=== PATIENT | female | born 1985 | race Caucasian/White ===

== ENCOUNTER 2017-02-27 12:42 | Emergency (ER) | payer OTHER ==
[~2017-02-27] VITALS: Ht 165.1 cm; Wt 85.8 kg
[~2017-02-27 12:42] MED LIST: ACET-785 PO; PREN-92 PO
[2017-02-27 12:47] VITALS: Ht 165.1 cm; Wt 85.8 kg
--- OUTSIDE RECORDS SUMMARY | 2017-02-27 12:47 | XMS REPORT | Referral Summary ---
Author Author [facility] Organization [facility] Address Unknown Phone Unavailable Care Team Providers Care Petroleum Inspector Name Role Phone Daniel Ibrahim Primary Care Physician [phone] Encounter Date(s): 09/08/15 - 09/08/15 [facility] [address] [place], [place] [address] Discharge Diagnosis: Cervicogenic headache Discharge Diagnosis: Cervical spondylosis Discharge Disposition: 01-Home or Self Care Attending Physician: Sam Roth MD Admitting Physician: Sam Roth MD Vital Signs Most recent to 1 oldest [Reference Range]: Peripheral Pulse 79 bpm Rate [60-100 bpm] (09/08/15 8:30 AM) Respiratory Rate 19 br/min [14-20 br/min] (09/08/15 8:30 AM) Blood Pressure 199/78 mmHg [90-140/60-90 mmHg] *HI* (09/08/15 8:30 AM) SpO2 100 % (09/08/15 8:30 AM) Problem List Condition Effective Dates Status Health Status Informant Other Active acne(Confirmed) Acute suppurative Active otitis media without spontaneous rupture of ear drum(Confirmed) Unspecified asthma, Active with status asthmaticus(Confirme d) Hematuria, Active unspecified(Confirme d) Bronchitis, not Active specified as acute or chronic(Confirmed) Mild dysplasia of Active cervix(Confirmed) Acute cervical Active radiculopathy(Confir med) Cervical Active spondylosis(Confirme d) Cervicogenic Active headache(Confirmed) Low grade squamous Active intraepithelial lesion (LGSIL) on Papanicolaou smear of cervix(Confirmed) Chicken Resolved pox(Confirmed) DDD (degenerative Active disc disease), cervical(Confirmed) Depressive disorder, Active not elsewhere classified(Confirmed ) Esophageal Active reflux(Confirmed) Unspecified Active hypothyroidism(Confi rmed) Pneumonia, organism Active unspecified(Confirme d) Insomnia, Active unspecified(Confirme d) Migraine(Confirmed) Resolved Migraine with aura Active w/o Mention Intractable Migraine(Confirmed) Mixed Active hyperlipidemia(Confi rmed) Cervicalgia(Confirme Active d) Panic disorder Active without agoraphobia(Confirme d) Pneumonia(Confirmed) Resolved (Confirmed) 2012 Active 1 (Confirmed) 2009 Active 2 Cervical Active herniation(Confirmed ) Lumbar disc Active herniation(Confirmed ) Sinus Resolved infection(Confirmed) Tension Active headache(Confirmed) Thoracic back Active pain(Confirmed) THORACIC OR Active LUMBOSACRAL NEURITIS OR RADICULITIS, UNSPECIFIED(Confirme d) Tourette's Resolved syndrome(Confirmed)3 1NSVD 2NSVD 3Pre School Age Allergies, Adverse Reactions, Alerts Substance Reaction Severity Status Amitex LA Active penicillin Rash Active SUMAtriptan HEADACHE Active traMADol SYMPTOMS INVOLVING RESPIRATORY SYSTEM AND Active OTHER CHEST SYMPTOMS itching Medications [place] 5 mg-325 mg oral tablet 1 tabs, Oral, q6hr, as needed for pain, #40 Must last 30 days, # 40 tabs, 0 Refill(s) Start Date: 08/27/15 Status: Ordered Results No data available for this section Immunizations Vaccine Date Refusal Reason hepatitis B adult vaccine 08/16/00 hepatitis B adult vaccine 05/16/99 hepatitis B adult vaccine 06/07/98 influenza virus vaccine, live 07/18/13 tetanus-diphth toxoids (Td) adult/adol 05/16/99 Procedures Procedure Date Related Diagnosis Body Site Destruction by neurolytic agent, 09/08/15 paravertebral facet joint nerve(s), with imaging guidance (fluoroscopy or CT); cervical or thoracic, single facet joint Right C2-3 Radiofrequency 09/08/15 Right C2-3 Medial Branch Block with 07/26/15 Differential Right C5-6 Transforaminal 06/30/15 RIGHT C4-6 RADIO 04/28/15 Right C4-6 Medial Branch Block with 04/08/15 Differential Right C4-6 Medial Branch Block 04/01/15 Right C5-6 Transforaminal 01/19/15 Cervical Translaminar 12/07/14 Sinus Social History Social History Type Response Smoking Status Former smoker; Type: Cigarettes Assessment and Plan No data available for this section
--- OUTSIDE RECORDS SUMMARY | 2017-02-27 12:47 | XMS REPORT | Referral Summary ---
Author Author [facility] Organization [facility] Address Unknown Phone Unavailable Care Team Providers Care Cloth Examiner Machine Name Role Phone Daniel Ibrahim Primary Care Physician [phone] Encounter Date(s): 01/17/16 - 01/17/16 [facility] [address] [place], [place] [address] Discharge Diagnosis: Cervical radiculopathy Discharge Diagnosis: Cervicalgia Discharge Diagnosis: Lumbar radiculopathy Discharge Diagnosis: DDD (degenerative disc disease), cervical Discharge Diagnosis: Lumbar spinal stenosis Discharge Diagnosis: Lumbar disc herniation Discharge Diagnosis: Cervical spondylosis Discharge Disposition: -Home or Self Care Attending Physician: Ashli Leija PA-C Admitting Physician: Ashli Leija PA-C Referring Physician: Abimael Ibrahim MD Vital Signs Most recent to 1 oldest [Reference Range]: Blood Pressure 124/70 mmHg [90-140/60-90 mmHg] (01/17/16 9:34 AM) Problem List Condition Effective Dates Status Health Status Informant Other Active acne(Confirmed) Acute suppurative Active otitis media without spontaneous rupture of ear drum(Confirmed) Unspecified asthma, Active with status asthmaticus(Confirme d) Hematuria, Active unspecified(Confirme d) Bronchitis, not Active specified as acute or chronic(Confirmed) Mild dysplasia of Active cervix(Confirmed) Cervical Active radiculopathy(Confir med) Cervical Active spondylosis(Confirme d) Cervicogenic Active headache(Confirmed) Low grade squamous Active intraepithelial lesion (LGSIL) on Papanicolaou smear of cervix(Confirmed) Chicken Resolved pox(Confirmed) DDD (degenerative Active disc disease), cervical(Confirmed) Depressive disorder, Active not elsewhere classified(Confirmed ) Esophageal Active reflux(Confirmed) Unspecified Active hypothyroidism(Confi rmed) Pneumonia, organism Active unspecified(Confirme d) Insomnia, Active unspecified(Confirme d) Lumbar Active radiculopathy(Confir med) Migraine with aura Active w/o Mention Intractable Migraine(Confirmed) Migraine(Confirmed) Resolved Mixed Active hyperlipidemia(Confi rmed) Cervicalgia(Confirme Active d) Panic disorder Active without agoraphobia(Confirme d) Pneumonia(Confirmed) Resolved (Confirmed) 2012 Active 1 (Confirmed) 2009 Active 2 Cervical Active herniation(Confirmed ) Lumbar disc Active herniation(Confirmed ) Sinus Resolved infection(Confirmed) Lumbar spinal Active stenosis(Confirmed) Tension Active headache(Confirmed) Thoracic back Active pain(Confirmed) Tourette's Resolved syndrome(Confirmed)3 1NSVD 2NSVD 3Pre School Age Allergies, Adverse Reactions, Alerts Substance Reaction Severity Status Amitex LA Active penicillin Rash Active SUMAtriptan HEADACHE Active traMADol SYMPTOMS INVOLVING RESPIRATORY SYSTEM AND Active OTHER CHEST SYMPTOMS itching Medications [place] 5 mg-325 mg oral tablet 1 tabs, Oral, q6hr, as needed for pain, #60 Must last 30 days., # 60 tabs, 0 Refill(s) Start Date: 12/27/15 Status: Ordered Results No data available for this section Immunizations Vaccine Date Refusal Reason hepatitis B adult vaccine 08/16/00 hepatitis B adult vaccine 05/16/99 hepatitis B adult vaccine 06/07/98 influenza virus vaccine, live 07/18/13 tetanus-diphth toxoids (Td) adult/adol 05/16/99 Procedures Procedure Date Related Diagnosis Body Site Right C5-6 Transforaminal 12/22/15 Right C5-6 Transforaminal 10/27/15 Right C2-3 Radiofrequency 09/08/15 Right C2-3 Medial Branch Block with 07/26/15 Differential Right C5-6 Transforaminal 06/30/15 RIGHT C4-6 RADIO 04/28/15 Right C4-6 Medial Branch Block with 04/08/15 Differential Right C4-6 Medial Branch Block 04/01/15 Right C5-6 Transforaminal 01/19/15 Cervical Translaminar 12/07/14 Sinus Social History Social History Type Response Smoking Status Former smoker; Type: Cigarettes Assessment and Plan Extracted from: Title: Office Visit Note Author: Ashli Leija PA-C Date: 01/17/16 Assessment/Plan Cervical radiculopathy Cervical spondylosis DDD (degenerative disc disease), cervical Lumbar disc herniation Lumbar radiculopathy Lumbar spinal stenosis Neck pain Ordered: MRI Spine Cervical w/o Contrast XR Spine Cervical 2 or 3 Views I discussed the patient's plan of care with Dr. Roth. I also reviewed the patient's most recent cervical MRI, which is from May 2014.. According to this MRI the patient has posterior disc bulge with annular tearand anterior spurring at C5 6with no significant central canal or foraminal narrowing. She recently had an EMG nerve conduction study of her right upper extremity showing right C6 radiculopathy. She has had several right C5 6 transforaminal epidurals, but feels like her last several injectionswere only minimally helpful. Dr. Roth recommends sending the patient to see Dr. Irene for evaluation. She will need new cervical studies prior to this appointment including new x-rays and MRI without contrast. I also reviewed the patient's most recent lumbar MRI, which is from November 2014, which showeddisc herniation with annular tear at L4 5with minimal impression upon the thecal sac and mild to moderate bilateral foraminal narrowing. This coincides with the patient's low back pain in early radicular symptoms.She has not had any injection treatment for her lower back, as her neck was always her primary complaint. She has attended physical therapy continues with home stretching. Dr. Roth recommends proceeding with an L4 5 translaminar epidural steroid injection. The patient does understand the rationale for the procedure as well as possible complications including bleeding, infection, allergic reaction, nerve irritation or damage, and risk of spinal headache. The patient also understands other remote possible complications including paraplegia, quadriplegia, , stroke, and seizure. The patient voiced understanding and wishes to proceed. The patient requests a local anesthetic. The patient will follow-up in 2-3 months following the injection. If the patient fails to improve or worsening symptoms, they will follow-up sooner. The patient voiced understanding and agrees to the above plan. The above was in discussionwith Dr. Roth. Medications: We discussed trying some gabapentin, but the patientwould like to hold off on this for now.
--- OUTSIDE RECORDS SUMMARY | 2017-02-27 12:47 | XMS REPORT | Continuity of Care Document ---
Author Author Kass[facility] Corne[facility] Address [address] [place] [address] Phone Care Team Providers Care Software Quality Assurance Analyst Name Role Phone Abimael Ibrahim PP Unavailable Payers Payer name Insurance type Covered constitution party ID Authorization(s) Unknown Problems Condition Effective Dates (start - stop) Clinical Status Neck pain - *Symptomatic Pain in limb - *Acute Other acne - *Chronic Unspecified disorders of menstruation and other abnormal bleeding from female genital tract - *Fair Control Upper Respiratory Infection, Acute - *Acute Sinusitis, Acute - *Acute Cervicalgia - *Chronic Pain in joint involving shoulder region - *Chronic Other specified conditions influencing health stat - *Acute VARICELLA UNCOMPLICATED - HYPOTHYROIDISM NOS - MIXED HYPERLIPIDEMIA - PANIC DIS W/O AGORPHOBIA - TOURETTE'S DISORDER - TENSION HEADACHE - 311 - DEPRESSIVE DISORDER NEC - MGRN W AURA WO NTRC MGRN - AC SUPP OTITIS MEDIA NOS - 486 - PNEUMONIA, ORGANISM NOS - 490 - BRONCHITIS NOS - ASTHMA NOS - ESOPHAGEAL REFLUX - HEMATURIA NOS - MILD DYSPLASIA OF CERVIX - ACNE NEC - INSOMNIA NOS - PAP SMEAR CERVIX W LGSIL - Implanon insertion - *Routine Bronchitis, Acute - *Acute Upper Respiratory Infection, Acute - *Acute Cough - *Acute Abnormal uterine bleeding - *Symptomatic Breakthrough bleeding on Implanon - *Symptomatic General counseling and advice for contraceptive ma - *Routine Pain in joint involving shoulder region - *Acute Sinusitis, acute - *Acute care and examination of lactating mothe - *Chronic Contact dermatitis and other eczema, unspecified cause - * Chronic Asthma - *Chronic Influenza Vaccine - Other acne - *Chronic Unspecified contraceptive management - *Chronic Upper Respiratory Infection, Acute - *Acute Fever - *Acute Cough - *Acute Family History Family Member Diagnosis Age At Onset Status Father (Unknown) Alive and well (Unknown) Mother (Unknown) Alive and well (Unknown) Social History Social History Element Description Quantity Unknown Allergies, Adverse Reactions, Alerts Substance Reaction Severity Status SUMATRIPTAN Unknown SUMATRIPTAN SUCCINATE Unknown PENICILLINS Unknown Medications Medication Instructions Dosage Effective Dates (start - stop) Status TAKE 1 TAB DAILY - Active Atralin 0.05 % topical gel apply by topical route every day pea sized amount to entire face 0 - Active Duac 1.2 %(1 % base)-5 % topical gel,extended release apply by topical route 2 times every day to the affected area(s) in the morning and evening 0 2012 - Active Implanon 68 mg subdermal implant inserted into left arm on 08/21/12 and is good for 3 years from that date - Active prednisone 20 mg tablet take 1 tablet (20MG) by oral route every day 20 MG - Active Promethazine [facility]-Codeine 6.25 mg-5 mg-10 mg/5 mL syrup take 5 milliliter by oral route every 4 - 6 hours as needed, not to exceed 20 mL in 24 hours - Active Immunizations Vaccine Date Status Comments Flu (split) (3 yrs or older) completed Results Test Name Date and Time Measure Units Reference Range Abnormal Flag Comments Unknown Vital Signs Date / Time: Height Weight Pulse Rate Blood Pressure Temperature /15:43:00 65.00 in 162.00 lbs 98.1 F Procedures Procedure Date Unknown Encounters Encounter Location Date [facility] Patient Visit [facility] Patient Visit [facility] Patient Visit [facility] Advance Directives Directive Effective Date Unknown
--- OUTSIDE RECORDS SUMMARY | 2017-02-27 12:47 | XMS REPORT | Referral Summary ---
Author Author [facility] Organization [facility] Address Unknown Phone Unavailable Care Team Providers Care Pricing Clerk Name Role Phone Daniel Ibrahim Primary Care Physician [phone] Encounter [facility] Date(s): 04/28/15 - 04/28/15 [facility] [address] [place], [place] [address] Discharge Diagnosis: Cervical pain Discharge Diagnosis: Cervical spondylosis Discharge Disposition: 01-Home or Self Care Attending Physician: Sam Roth MD Admitting Physician: Sam Roth MD Referring Physician: Abimael Ibrahim MD Vital Signs Most recent to 1 oldest [Reference Range]: Peripheral Pulse 73 bpm Rate [60-100 bpm] (04/28/15 12:45 PM) Respiratory Rate 20 br/min [14-20 br/min] (04/28/15 12:45 PM) Blood Pressure 131/86 mmHg [90-140/60-90 mmHg] (04/28/15 12:45 PM) SpO2 100 % (04/28/15 12:45 PM) Problem List Condition Effective Dates Status Health [...] AND Active OTHER CHEST SYMPTOMS itching Medications [place] 5 mg-325 mg oral tablet 1 tabs, Oral, q6hr, as needed for pain, #40 Must last 30 days. MAY FILL ON 08/29., # 40 tabs, 0 Refill(s) Start Date: 09/21/15 Status: Ordered Results No data available for this section Immunizations Vaccine Date Refusal Reason hepatitis B adult vaccine 08/16/00 hepatitis B adult vaccine 05/16/99 hepatitis B adult vaccine 06/07/98 influenza virus vaccine, live 07/18/13 tetanus-diphth toxoids (Td) adult/adol 05/16/99 Procedures Procedure Date Related Diagnosis Body Site Right C5-6 Transforaminal 10/27/15 Right C2-3 Radiofrequency 09/08/15 Right C2-3 Medial Branch Block with 07/26/15 Differential Right C5-6 Transforaminal 06/30/15 Destruction by neurolytic agent, 04/28/15 paravertebral facet joint nerve(s), with imaging guidance (fluoroscopy or CT); cervical or thoracic, each additional facet joint (List separately in addition to code for primary procedure).. Destruction by neurolytic agent, 04/28/15 paravertebral facet joint nerve(s), with imaging guidance (fluoroscopy or CT); cervical or thoracic, single facet joint RIGHT C4-6 RADIO 04/28/15 Right C4-6 Medial Branch Block with 04/08/15 Differential Right C4-6 Medial Branch Block 04/01/15 Right C5-6 Transforaminal 01/19/15 Cervical Translaminar 12/07/14 Sinus Social History Social History Type Response Smoking Status Former smoker; Type: Cigarettes Assessment and Plan No data available for this section
--- OUTSIDE RECORDS SUMMARY | 2017-02-27 12:47 | XMS REPORT | Continuity of Care Document ---
Author Author Alexandria URIARTE, VALERY, Abimael W Organization [facility] Address [address] [place] [address] [place] [address] Phone Care Team Providers Care Employee Services Manager Name Role Phone Abimael Ibrahim PP Unavailable Payers Payer name Insurance type Covered libertarian ID Authorization(s) Unknown Problems Condition Effective Dates (start - stop) Clinical Status Upper Respiratory Infection, Acute - *Acute Sinusitis, Acute - *Acute Pain in limb - *Acute Other acne - *Chronic Unspecified disorders of menstruation and other abnormal bleeding from female genital tract - *Fair Control Cervicalgia - *Chronic Pain in joint involving [...] *Acute Fever - *Acute Cough - *Acute Neck pain - *Symptomatic Family History Family Member Diagnosis Age At Onset Status Father (Unknown) Alive and well (Unknown) Mother (Unknown) Alive and well (Unknown) Social History Social History Element Description Quantity Unknown Allergies, Adverse Reactions, Alerts Substance Reaction Severity Status SUMATRIPTAN Unknown SUMATRIPTAN SUCCINATE Unknown PENICILLINS Unknown Medications Medication Instructions Dosage Effective Dates (start - stop) Status prednisone 20 mg tablet take 1 tablet (20MG) by oral route every day 20 MG - Active Promethazine [facility]-Codeine 6.25 mg-5 mg-10 mg/5 mL syrup take 5 milliliter by oral route every 4 - 6 hours as needed, not to exceed 20 mL in 24 hours - Active azithromycin 250 mg tablet take 2 tablet (500MG) by oral route every day for 1 day then 1 tablet (250 mg) by oral route once daily for 4 days 500 MG - No Longer Active TAKE 1 TAB DAILY - Active Atralin [...] 3 years from that date - Active Immunizations Vaccine Date Status Comments Flu (split) (3 yrs or older) completed Results Test Name Date and Time Measure Units Reference Range Abnormal Flag Comments Unknown Vital Signs Date / Time: Height Weight Pulse Rate Blood Pressure Temperature /13:48:00 65.00 in 169.00 lbs 120/80 mm[Hg] 97.4 F Procedures Procedure Date Unknown Encounters Encounter Location Date Patient Visit [facility] Patient Visit [facility] Patient Visit [facility] E2 Derm Patient Visit [facility] Patient Visit [facility] Patient Visit [facility] Patient Visit [facility] Patient Visit [facility] Patient [facility] Patient [facility] Patient Visit [facility] Patient Visit [facility] Patient Visit [facility] Patient Visit [facility] Patient Visit [facility] Patient Visit [facility] Advance Directives Directive Effective Date Unknown
--- OUTSIDE RECORDS SUMMARY | 2017-02-27 12:47 | XMS REPORT | Referral Summary ---
Author Author [facility] Organization [facility] Address Unknown Phone Unavailable Care Team Providers Care Support Group Manager Name Role Phone Daniel Ibrahim Primary Care Physician [phone] Encounter Date(s): 07/16/15 - 07/16/15 [facility] [address] [place], [place] [address] Discharge Diagnosis: Cervicalgia Discharge Diagnosis: Cervicogenic headache Discharge Diagnosis: Cervical spondylosis Discharge Diagnosis: DDD (degenerative disc disease), cervical Discharge Disposition: 01-Home or Self Care Attending Physician: Ashli Leija PA-C Admitting Physician: Ashli Leija PA-C Vital Signs Most recent to 1 oldest [Reference Range]: Blood Pressure 100/66 mmHg [90-140/60-90 mmHg] (07/16/15 8:24 AM) Problem List Condition Effective Dates Status [...] AND Active OTHER CHEST SYMPTOMS itching Medications [place] 5 mg-325 mg oral tablet 1 tabs, [...] Visit Note Author: Ashli Leija PA-C Date: 07/16/15 Assessment/Plan Cervical spondylosis Cervicalgia Cervicogenic headache DDD (degenerative disc disease), cervical I discussed the patient's plan of care with Dr. Roth. I also reviewed the patient's most recent cervical MRI. According to this MRI the patient has disc bulging with annular tear at C5 6. She also has an area of abnormal soft tissue inflammation in the midline posterior subcutaneous soft tissue seen at the C7-T1 level, without lesion. All other levels are unremarkable. Her pain today seems to be coming from her right upper cervical facet jointsand she was complaining of occipital headaches. She has previously had a right C4 to C6 radiofrequency ablation, with relief. Dr. Roth recommends proceeding with a right C2 3 medial branch block twice in workup for radiofrequency ablation.The patient does understand the rationale for the procedure as well as possible complications including bleeding, infection, allergic reaction, nerve irritation or damage. The patient also understands other remote possible complications including paraplegia, quadriplegia, , stroke, and seizure. The patient voiced understanding and wishes to proceed. The patient requests a local anesthetic. The patient will follow-up in one week following the injection. If the patient fails to improve or worsening symptoms, they will follow-up sooner. The patient voiced understanding and agrees to the above plan. The above was in discussion with Dr. Roth.
--- OUTSIDE RECORDS SUMMARY | 2017-02-27 12:47 | XMS REPORT | Referral Summary ---
Author Author [facility] Organization [facility] Address Unknown Phone Unavailable Care Team Providers Care Rubber And Pounder Name Role Phone Daniel Ibrahim Primary Care Physician [phone] Encounter VC Date(s): 03/01/16 - 03/01/16 [facility] [address] [place], [place] [address] Discharge Diagnosis: Thoracic disc herniation Discharge Diagnosis: Thoracic radiculopathy Discharge Disposition: 01-Home or Self Care Attending Physician: Sam Roth MD Admitting Physician: Sam Roth MD Referring Physician: Abimael Ibrahim MD Vital Signs Most recent to 1 oldest [Reference Range]: Apical Heart Rate 81 bpm [60-100 bpm] (03/01/16 2:49 PM) Respiratory Rate 16 br/min [14-20 br/min] (03/01/16 2:49 PM) Blood Pressure 130/92 mmHg [90-140/60-90 mmHg] (03/01/16 2:49 PM) SpO2 100 % (03/01/16 2:49 PM) Problem List Condition Effective Dates Status [...] pox(Confirmed) DDD (degenerative Active disc disease), cervical(Confirmed) DDD (degenerative Active disc disease), lumbar(Confirmed) Depressive disorder, Active not elsewhere classified(Confirmed ) [...] herniation(Confirmed ) Lumbar disc Active herniation(Confirmed ) Thoracic disc Active herniation(Confirmed ) Sinus Resolved infection(Confirmed) Lumbar spinal Active stenosis(Confirmed) Thoracic Active stenosis(Confirmed) Tension Active headache(Confirmed) Thoracic back Active pain(Confirmed) Thoracic Active radiculopathy(Confir med) Tourette's Resolved syndrome(Confirmed)3 1NSVD 2NSVD 3Pre School Age Allergies, Adverse Reactions, Alerts Substance Reaction Severity Status Amitex LA Active penicillin Rash Active SUMAtriptan HEADACHE Active traMADol SYMPTOMS INVOLVING RESPIRATORY SYSTEM AND Active OTHER CHEST SYMPTOMS itching Medications [place] 5 mg-325 mg oral tablet 1 tabs, Oral, q6hr, as needed for pain, #60 Must last 30 days., # 60 tabs, 0 Refill(s) Start Date: 02/28/16 Status: Ordered Results No data available for this section Immunizations Vaccine Date Refusal Reason hepatitis B adult vaccine 08/16/00 hepatitis B adult vaccine 05/16/99 hepatitis B adult vaccine 06/07/98 influenza virus vaccine, live 07/18/13 tetanus-diphth toxoids (Td) adult/adol 05/16/99 Procedures Procedure Date Related Diagnosis Body Site Injection(s), of diagnostic or therapeutic 03/01/16 substance(s) (including anesthetic, antispasmodic, opioid, steroid, other solution), not including neurolytic substances, including needle or catheter placement, includes contrast for localization when performed, T 7-8 Translaminar 03/01/16 Right C5-6 Transforaminal 12/22/15 Right C5-6 Transforaminal [...]
--- OUTSIDE RECORDS SUMMARY | 2017-02-27 12:47 | XMS REPORT | Referral Summary ---
Author Author [facility] Organization [facility] Address Unknown Phone Unavailable Care Team Providers Care Dwarf Tree Grower Name Role Phone Daniel Ibrahim Primary Care Physician [phone] Encounter Date(s): 10/06/15 - 10/06/15 [facility] [address] [place], [place] [address] Discharge Diagnosis: DDD (degenerative disc disease), cervical Discharge Diagnosis: Cervical herniation Discharge Diagnosis: Cervical radiculopathy Discharge Disposition: 01-Home or Self Care Attending Physician: Ashli Leija PA-C Admitting Physician: Ashli Leija PA-C Vital Signs Most recent to 1 oldest [Reference Range]: Temperature Oral 36.5 degC [35.8-37.3 degC] (10/06/15 11:09 AM) Blood Pressure 122/74 mmHg [90-140/60-90 mmHg] (10/06/15 11:09 AM) Problem List Condition Effective Dates Status [...] AND Active OTHER CHEST SYMPTOMS itching Medications cyclobenzaprine 10 mg oral tablet 10 mg 1 tabs, Oral, TID, as needed for spasm, # 60 tabs, 0 Refill(s), Pharmacy: [facility] #[id number], 1 tabs Oral TID,PRN:as needed for spasm Start Date: 09/24/15 Status: Ordered Cymbalta 30 mg oral delayed release capsule 30 mg 1 caps, Oral, Bedtime (once a day), # 30 caps, 0 Refill(s), Pharmacy: [facility] #[id number], 1 caps Oral Bedtime (once a day) Start Date: 09/24/15 Status: Ordered [place] 5 mg-325 mg oral tablet 1 tabs, Oral, q6hr, as needed for pain, #40 Must last 30 days. MAY FILL ON 08/29., # 40 tabs, 0 Refill(s) Start Date: 09/21/15 Status: Ordered [place] 5 mg-325 mg oral tablet 1 tabs, Oral, BID, as needed for pain, Note number dispensed is increased. May fill today 09/24/15. Maren Must last 30 days., # 60 tabs, 0 Refill(s) Start Date: 09/24/15 Status: Ordered Results No data available for this section Immunizations Vaccine Date Refusal Reason hepatitis B adult vaccine 08/16/00 hepatitis B adult vaccine 05/16/99 hepatitis B adult vaccine 8/24/98 influenza virus vaccine, live 07/18/13 tetanus-diphth toxoids (Td) adult/adol 05/16/99 Procedures Procedure Date Related Diagnosis Body Site Right C2-3 Radiofrequency 09/08/15 Right C2-3 Medial [...] Visit Note Author: Ashli Leija PA-C Date: 10/06/15 Assessment/Plan Cervical herniation Cervical radiculopathy DDD (degenerative disc disease), cervical I discussed the patient's plan of care with Dr. Roth. I also reviewed the patient's most recent cervical MRI. According to this MRI the patient has disc bulging with annular tear at C5 6. She also has an area of abnormal soft tissue inflammation in the midline posterior subcutaneous soft tissue seen at the C7- T1 level, without lesion. All other levels are unremarkable. Clinically, her symptoms seemed to be coming from herdisc herniation with annular tear at C5 6with right upper extremity radiculopathy. She has previously benefited from right C5 6 transforaminal epiduralsfor several months at a time. Dr. Roth recommends proceeding with repeating her right C5 6 transforaminal epidural steroid injection. The patient does understand [...]
--- OUTSIDE RECORDS SUMMARY | 2017-02-27 12:48 | XMS REPORT | Referral Summary ---
Author Author [facility] Organization [facility] Address Unknown Phone Unavailable Care Team Providers Care Certified Massage Therapist Name Role Phone Daniel Ibrahim Primary Care Physician [phone] Encounter Date(s): 02/26/15 - 02/26/15 [facility] [address] [place], [place] [address] Discharge Diagnosis: Acute cervical radiculopathy Discharge Diagnosis: Lumbar disc herniation Discharge Diagnosis: Cervical herniation Discharge Diagnosis: THORACIC OR LUMBOSACRAL NEURITIS OR RADICULITIS, UNSPECIFIED Discharge Disposition: 01-Home or Self Care Attending Physician: Debi Ricketts APRN Admitting Physician: Debi Ricketts APRN Referring Physician: Abimael Ibrahim MD Vital Signs Most recent to 1 oldest [Reference Range]: Temperature Oral 36.7 degC [35.8-37.3 degC] (02/26/15 11:00 AM) Blood Pressure 115/65 mmHg [90-140/60-90 mmHg] (02/26/15 11:00 AM) Problem List Condition Effective Dates Status [...] Active without agoraphobia(Confirme d) Pneumonia(Confirmed) Resolved (Confirmed) 2011 Active 1 (Confirmed) 2008 Active 2 Cervical Active herniation(Confirmed ) Lumbar [...] AND Active OTHER CHEST SYMPTOMS itching Medications [place] 5 mg-325 mg oral tablet 1 tabs, Oral, q6hr, as needed for pain, #40 Must last 30 days, # 40 tabs, 0 Refill(s) Start Date: 07/26/15 Status: Ordered Results No data available for this section Immunizations Vaccine Date Refusal Reason hepatitis B adult vaccine 08/16/00 hepatitis B adult vaccine 05/16/99 hepatitis B adult vaccine 06/07/98 influenza virus vaccine, live 07/18/13 tetanus-diphth toxoids (Td) adult/adol 05/16/99 Procedures Procedure Date Related Diagnosis Body Site Right C2-3 Medial Branch Block with 07/26/15 Differential Right C5-6 Transforaminal 06/30/15 RIGHT C4-6 RADIO 04/28/15 Right C4-6 Medial Branch Block with 04/08/15 Differential Right C4-6 Medial Branch Block 04/01/15 Right C5-6 Transforaminal 01/19/15 Cervical Translaminar 12/07/14 Sinus Social History Social History Type Response Smoking Status Former smoker; Type: Cigarettes Assessment and Plan Extracted from: Title: Office Visit Note Author: Debi Ricketts APRN Date: 02/26/15 Assessment/Plan Acute cervical radiculopathy Cervical herniation Lumbar disc herniation THORACIC OR LUMBOSACRAL NEURITIS OR RADICULITIS, UNSPECIFIED This patient was evaluated by Dr. Roth. She returns today for follow-up after having a thoracic MRI. Her MRI reveals mild central disc protrusion at T5 6 and T6 7 causing mild central deformity of the thecal sac at these levels she also has a mild bulge of the disc at T8 9. On exam she has not painful over these areas. Today she reports that she is primarily having right-sided neck pain her previous right arm radicular symptoms have improved after having a right C5 6 transforaminal epidural steroid injection on January 19, 2015. She was examined by Dr. Roth andhe feels that her symptoms are mechanical in nature. She reports she has been out of her Cymbalta for 3 days and that her pain recently has worsened. Dr. Roth recommends that she call back 1 week after restarting her Cymbalta andif she is not having improvement we will proceed with 2 sets of right C4 through C6 medial branch blocks as a diagnostic test to see if the patient is a candidate for radiofrequency ablation at these levels. Discussed the risks of the procedure with the patient, Discussed the potential side effects and possible risks from the injection: localized increase in pain, infection, bleeding, allergic reaction, nerve damage involving temporary or permanent pain, numbness, weakness, paralysis or . Patient was provided literature to read about medial branch blocks and radiofrequency ablation. Patient also has low back pain over her lower lumbar spinous processes she has an L4 [address] Guerra recommends if her pain persists she may proceed with an L4 5 translaminar epidural steroid injection. History of present illness , physical exam and plan of care in agreement with Dr. Roth's findings this patient will call back to our clinic if she does not have improvement after starting her Cymbalta. Patient is in agreement to the above plan of care. Encouraged continuation of home exercise and stretching.
--- OUTSIDE RECORDS SUMMARY | 2017-02-27 12:48 | XMS REPORT | Referral Summary ---
Author Author [facility] Organization [facility] Address Unknown Phone Unavailable Care Team Providers Care Side Panel Hanger Name Role Phone Daniel Ibrahim Primary Care Physician [phone] Encounter VC Date(s): 06/15/15 - 06/15/15 [facility] [address] [place], [place] [address] Discharge Diagnosis: Cervical spondylosis Discharge Diagnosis: Acute cervical radiculopathy Discharge Diagnosis: DDD (degenerative disc disease), cervical Discharge Disposition: 01-Home or Self Care Attending Physician: Ashli Leija PA-C Admitting Physician: Ashli Leija PA-C Referring Physician: Abimael Ibrahim MD Vital Signs Most recent to 1 oldest [Reference Range]: Blood Pressure 110/76 mmHg [90-140/60-90 mmHg] (06/15/15 10:50 AM) Problem List Condition Effective Dates Status [...] Active unspecified(Confirme d) Insomnia, Active unspecified(Confirme d) Migraine with aura Active w/o Mention Intractable Migraine(Confirmed) Migraine(Confirmed) Resolved Mixed Active hyperlipidemia(Confi rmed) Cervicalgia(Confirme Active d) Panic disorder Active without agoraphobia(Confirme d) Pneumonia(Confirmed) Resolved (Confirmed) 2011 Active 1 (Confirmed) 2009 Active 2 Cervical [...] AND Active OTHER CHEST SYMPTOMS itching Medications [place] 5 mg-325 mg oral tablet 1 tabs, Oral, q6hr, as needed for pain, #60 Must last 30 days., # 60 tabs, 0 Refill(s) Start Date: 11/26/15 Status: Ordered Results No data available for [...] Visit Note Author: Ashli Leija PA-C Date: 06/15/15 Assessment/Plan Acute cervical radiculopathy Cervical spondylosis DDD (degenerative disc disease), cervical I discussed the patient's plan of care with Dr. Roth. I also reviewed the patient's most recent cervical MRI with the patient using a spinal model. According to this MRI the patient has disc bulging with annular tear at C5 6. She also hasan area of abnormal soft tissue inflammationin the midline posterior subcutaneous soft tissue seen at the C7-T1 level, without lesion. This coincides withthe patient's neck pain and right upper extremity radiculopathy. She has previously benefited from a right C5 [address] Roth recommends proceeding with repeating her [...] The patient voiced understanding and wishes to proceed.The patient requests a local anesthetic. The patient will follow-up in6 weeksfollowing the injection, at which time we will discuss any remaining neck pain and headachesand possibly pursue with a right C2 3 medial branch block in workup for radiofrequency ablation. She would also like to pursue treatment for her middle and lower back. If the patient fails to improve or worsening symptoms, they will follow-up sooner. The patient voiced understanding and agrees to the above plan. Physical exam findings, history present illness, and recommendations are performed with and in agreement with Dr. Roth's findings.
--- OUTSIDE RECORDS SUMMARY | 2017-02-27 12:48 | XMS REPORT | Referral Summary ---
Author Author [facility] Organization [facility] Address Unknown Phone Unavailable Care Team Providers Care Grab Hooker Name Role Phone Daniel Ibrahim Primary Care Physician [phone] Encounter VC Date(s): 11/05/15 - 11/05/15 [facility] [address] [place] [id number] Discharge Diagnosis: Acute upper respiratory infection Discharge Disposition: 01-Home or Self Care Attending Physician: Chery Lloyd PA-C Admitting Physician: Chery Lloyd PA-C Vital Signs Most recent to 1 oldest [Reference Range]: Temperature Tympanic 36.6 degC [36.6-38.1 degC] (11/05/15 4:16 PM) Respiratory Rate 18 br/min [14-20 br/min] (11/05/15 4:16 PM) Blood Pressure 115/68 mmHg [90-140/60-90 mmHg] (11/05/15 4:16 PM) Problem List Condition Effective Dates Status [...] Pneumonia(Confirmed) Resolved (Confirmed) 2012 Active 1 (Confirmed) 2008 Active 2 Cervical [...] AND Active OTHER CHEST SYMPTOMS itching Medications [place] 5 mg-325 mg oral tablet 1 tabs, [...] Cigarettes Assessment and Plan Extracted from: Title: Ambulatory Patient Education Author: Chery Lloyd PA-C Date : 11/05/15 ENT Upper Respiratory Infection, Adult An upper respiratory infection (URI) is also sometimes known as the common cold. The upper respiratory tract includes the nose, sinuses, throat, trachea, and bronchi. Bronchi are the airways leading to the lungs. Most people improve within 1 week, but symptoms can last up to 2 weeks. A residual cough may last even longer. CAUSES Many different viruses can infect the tissues lining the upper respiratory tract. The tissues become irritated and inflamed and often become very moist. Mucus production is also common. A cold is contagious. You can easily spread the virus to others by oral contact. This includes kissing, sharing a glass, coughing, or sneezing. Touching your mouth or nose and then touching a surface, which is then touched by another person, can also spread the virus. SYMPTOMS Symptoms typically develop 1 to 3 days after you come in contact with a cold virus. Symptoms vary from person to person. They may include: Runny nose. Sneezing. Nasal congestion. Sinus irritation. Sore throat. Loss of voice (laryngitis). Cough. Fatigue. Muscle aches. Loss of appetite. Headache. Low-grade fever. DIAGNOSIS You might diagnose your own cold based on familiar symptoms, since most people get a cold 2 to 3 times a year. Your caregiver can confirm this based on your exam. Most importantly, your caregiver can check that your symptoms are not due to another disease such as strep throat, sinusitis, pneumonia, asthma, or epiglottitis. Blood tests, throat tests, and X-rays are not necessary to diagnose a common cold, but they may sometimes be helpful in excluding other more serious diseases. Your caregiver will decide if any further tests are required. RISKS AND COMPLICATIONS You may be at risk for a more severe case of the common cold if you smoke cigarettes, have chronic heart disease (such as heart failure) or lung disease ( such as asthma), or if you have a weakened immune system. The very young and very old are also at risk for more serious infections. Bacterial sinusitis, middle ear infections, and bacterial pneumonia can complicate the common cold. The common cold can worsen asthma and chronic obstructive pulmonary disease ( COPD). Sometimes, these complications can require emergency medical care and may be life-threatening. PREVENTION The best way to protect against getting a cold is to practice good hygiene. Avoid oral or hand contact with people with cold symptoms. Wash your hands often if contact occurs. There is no clear evidence that vitamin C, vitamin E, echinacea, or exercise reduces the chance of developing a cold. However, it is always recommended to get plenty of rest and practice good nutrition. TREATMENT Treatment is directed at relieving symptoms. There is no cure. Antibiotics are not effective, because the infection is caused by a virus, not by bacteria. Treatment may include: Increased fluid intake. Sports drinks offer valuable electrolytes, sugars, and fluids. Breathing heated mist or steam (vaporizer or shower). Eating chicken soup or other clear broths, and maintaining good nutrition. Getting plenty of rest. Using gargles or lozenges for comfort. Controlling fevers with ibuprofen or acetaminophen as directed by your caregiver. Increasing usage of your inhaler if you have asthma. Zinc gel and zinc lozenges, taken in the first 24 hours of the common cold, can shorten the duration and lessen the severity of symptoms. Pain medicines may help with fever, muscle aches, and throat pain. A variety of non-prescription medicines are available to treat congestion and runny nose. Your caregiver can make recommendations and may suggest nasal or lung inhalers for other symptoms. HOME CARE INSTRUCTIONS Only take [id number] or prescription medicines for pain, discomfort, or fever as directed by your caregiver. Use a warm mist humidifier or inhale steam from a shower to increase air moisture. This may keep secretions moist and make it easier to breathe. Drink enough water and fluids to keep your urine clear or pale yellow. Rest as needed. Return to work when your temperature has returned to normal or as your caregiver advises. You may need to stay home longer to avoid infecting others. You can also use a face mask and careful hand washing to prevent spread of the virus. SEEK MEDICAL CARE IF: After the first few days, you feel you are getting worse rather than better. You need your caregiver's advice about medicines to control symptoms. You develop chills, worsening shortness of breath, or brown or red sputum. These may be signs of pneumonia. You develop yellow or brown nasal discharge or pain in the face, especially when you bend forward. These may be signs of sinusitis. You develop a fever, swollen neck glands, pain with swallowing, or white areas in the back of your throat. These may be signs of strep throat. SEEK IMMEDIATE MEDICAL CARE IF: You have a fever. You develop severe or persistent headache, ear pain, sinus pain, or chest pain. You develop wheezing, a prolonged cough, cough up blood, or have a change in your usual mucus (if you have chronic lung disease). You develop sore muscles or a stiff neck. Document Released: 03/27/2002 Document Revised: 12/23/2012 Document Reviewed: [employer] Patient Information 2015 [email or web address]. This information is not intended to replace advice given to you by your health care provider. Make sure you discuss any questions you have with your health care provider. No follow up information was provided. Extracted from: Title: Office Visit Note- URI Author: Chery Lloyd PA-C Date: 11/05 Assessment/Plan Acute upper respiratory infection D/w pt that this may be the start of sinusitis, however, should treat symptomatically first. Try Flonase nasal spray OTC and also try Mucinex-D OTC. Push fluids. May try warm salt water gargles. She may call if cough develops for cough medication. I also d/w her that I usually do not treat sinus infection with abx until sx for 7-10 days. She may call if sx continue by that time, and can try abx. Ordered: Office Visit Level 3 Est [id number]
--- OUTSIDE RECORDS SUMMARY | 2017-02-27 12:48 | XMS REPORT | Referral Summary ---
Author Author [facility] Organization [facility] Address Unknown Phone Unavailable Care Team Providers Care Doctor Naturopathic Name Role Phone Daniel Ibrahim Primary Care Physician [phone] Encounter VC Date(s): 12/20/15 - 12/20/15 [facility] [address] [place], [place] [address] Discharge Disposition: 01-Home or Self Care Attending Physician: Sam Roth MD Admitting Physician: Sam Roth MD Vital Signs No data available for this section Problem List Condition Effective Dates Status Health [...] AND Active OTHER CHEST SYMPTOMS itching Medications [place] 5 mg-325 mg oral tablet 1 tabs, [...]
--- OUTSIDE RECORDS SUMMARY | 2017-02-27 12:48 | XMS REPORT | Referral Summary ---
Author Organization Unknown Address Unknown Phone Unavailable Care Team Providers Care Occupational Health And Safety Adviser Name Role Phone Daniel Ibrahim Primary Care Physician [phone] Encounter [facility] [id number] Date(s): 01/29/15 - 01/29/15 [facility] [address] [place], [place] [address] Discharge Diagnosis: THORACIC OR LUMBOSACRAL NEURITIS OR RADICULITIS, UNSPECIFIED Discharge Diagnosis: Cervical herniation Discharge Diagnosis: Thoracic back pain Discharge Diagnosis: Acute cervical radiculopathy Discharge Disposition: Home or Self Care Attending Physician: Debi Ricketts APRN Admitting Physician: Debi Ricketts APRN Referring Physician: Abimael Ibrahim MD Vital Signs Most recent to 1 oldest [Reference Range]: Blood Pressure 125/85 mmHg [90-140/60-90 mmHg] (01/29/15 9:09 AM) Problem List Condition Effective Dates Status Health Status Informant Other Active acne(Confirmed) Acute suppurative Active otitis media without spontaneous rupture of ear drum(Confirmed) Unspecified asthma, Active with status asthmaticus(Confirme d) Hematuria, Active unspecified(Confirme d) Bronchitis, not Active specified as acute or chronic(Confirmed) Mild dysplasia of Active cervix(Confirmed) Acute cervical Active radiculopathy(Confir med) Low grade squamous Active intraepithelial lesion (LGSIL) on Papanicolaou smear of cervix(Confirmed) Chicken Resolved pox(Confirmed) Depressive disorder, Active not elsewhere classified(Confirmed ) Esophageal Active reflux(Confirmed) Unspecified Active hypothyroidism(Confi rmed) Pneumonia, organism Active unspecified(Confirme d) Insomnia, Active unspecified(Confirme d) Migraine(Confirmed) Resolved Migraine with aura Active w/o Mention Intractable Migraine(Confirmed) Mixed Active hyperlipidemia(Confi rmed) Panic disorder Active without agoraphobia(Confirme d) Pneumonia(Confirmed) [...] AND Active OTHER CHEST SYMPTOMS itching Medications Cymbalta 60 mg oral delayed release capsule 1 caps, Oral, Daily, Start this script after finishing the 30mg caps., # 30 caps , 0 Refill(s), Pharmacy: [facility] #[id number], 1 caps Oral Daily,Instr: Start this script after finishing the 30mg caps. Special Instructions: Start this script after finishing the 30mg caps. Start Date: 01/18/15 Status: Suspended ibuprofen 200 mg oral capsule 2 caps, Oral, QID, as needed for fever, # 120 caps, 0 Refill(s) Start Date: 01/29/15 Status: Ordered Lyrica 150 mg, Oral, Daily, 0 Refill(s) Start Date: 01/29/15 Status: Ordered [place] 5 mg-325 mg oral tablet 1 tabs, Oral, q6hr, as needed for pain, # 40 tabs, 0 Refill(s) Start Date: 01/29/15 Status: Ordered predniSONE 20 mg oral tablet 1 tabs, Oral, Daily, X 5 days, # 5 tabs, 0 Refill(s), Pharmacy: [facility] #[id number], 1 tabs Oral Daily,x5 days Start Date: 01/29/15 Stop Date: 02/03/15 Status: Ordered Zithromax Z-Marky 250 mg oral tablet 1 packets, Oral, Daily, as directed on package labeling, X 5 days, # 6 tabs, 0 Refill(s), Pharmacy: [facility] #[id number], 1 packets Oral Daily,x5 days, Instr:as directed on package labeling Special Instructions: as directed on package labeling Start Date: 01/29/15 Stop Date: 02/03/15 Status: Ordered Results No data available for this section Immunizations Vaccine Date Refusal Reason hepatitis B adult vaccine 08/16/00 hepatitis B adult vaccine 05/16/99 hepatitis B adult vaccine 06/07/98 influenza virus vaccine, live 07/18/13 tetanus-diphth toxoids (Td) adult/adol 05/16/99 Procedures Procedure Date Related Diagnosis Body Site Right C5-6 Transforaminal 01/19/15 Cervical Translaminar 12/07/14 Sinus Social History Social History Type Response Smoking Status Former smoker; Type: Cigarettes Assessment and Plan Extracted from: Title: Office Visit Note Author: Debi Ricketts WOOD CRAFTSMAN Date: 01/29/15 Assessment/Plan Acute cervical radiculopathy Cervical herniation Thoracic back pain THORACIC OR LUMBOSACRAL NEURITIS OR RADICULITIS, UNSPECIFIED This patient was last seen on January 19, 2015 for a right C5 6 cervical transforaminal epidurals steroid injection she reports that she's had 45 percent relief and continues to have relief of her radicular symptoms. she is back today because she is having pain in her upper thoracic region and right shoulder blade. Patient was evaluated by Dr. Roth, upon exam she is tender at the C7, T1, T2 cervical spine.he recommends proceeding with thoracic MRI and thoracic x-rays for evaluation of her thoracic pain symptoms. Additionally she is tender on palpation of her right subacromial bursa. She reports she has previously seen a shoulder surgeon in the past 1-2 years and was told that her symptoms are coming from her neck. She has been on the Cymbalta for almost two weeks and has not noticed a significant difference. She will follow-up in 2 weeksto review the results ofher new thoracic MRI and x-rays. Patient is in agreement to the above plan of care. History of present illness, physical exam and plan of care are in agreement with 'sfindings.
--- OUTSIDE RECORDS SUMMARY | 2017-02-27 12:48 | XMS REPORT | Referral Summary ---
Author Author [facility] Organization [facility] Address Unknown Phone Unavailable Care Team Providers Care Automobile Brake Bonder Name Role Phone Daniel Ibrahim Primary Care Physician [phone] Encounter [facility] Date(s): 05/08/16 - 05/08/16 [facility] [address] [place], [place] [address] Discharge Diagnosis: Lumbar disc herniation Discharge Diagnosis: Lumbar spinal stenosis Discharge Diagnosis: Lumbar radiculopathy Discharge Disposition: 01-Home or Self Care Attending Physician: Sam Roth MD Admitting Physician: Sam Roth MD Referring Physician: Abimael Ibrahim MD Vital Signs Most recent to 1 oldest [Reference Range]: Apical Heart Rate 68 bpm [60-100 bpm] (05/08/16 10:37 AM) Respiratory Rate 16 br/min [14-20 br/min] (05/08/16 10:37 AM) Blood Pressure 135/93 mmHg [90-140/60-90 mmHg] (05/08/16 10:37 AM) SpO2 100 % (05/08/16 10:37 AM) Problem List Condition Effective Dates Status [...] herniation(Confirmed ) Lumbar disc Active herniation(Confirmed ) Lumbar disc Active herniation(Confirmed [...] AND Active OTHER CHEST SYMPTOMS itching Medications [place] 5 mg-325 mg oral tablet 1 tabs, Oral, q6hr, as needed for pain, #60 Must last 30 days., # 60 tabs, 0 Refill(s) Start Date: 05/01/16 Status: Ordered Ocuflox 0.3% ophthalmic solution 2 drops, Eye-Right, TID, # 5 mL, 0 Refill(s), Pharmacy: [facility] #[id number] Start Date: 04/04/16 Stop Date: 04/09/16 Status: Ordered Results No data available for this section Immunizations Vaccine Date Refusal Reason hepatitis B adult vaccine 08/16/00 hepatitis B adult vaccine 05/16/99 hepatitis B adult vaccine 06/07/98 influenza virus vaccine, live 07/18/13 tetanus-diphth toxoids (Td) adult/adol 05/16/99 Procedures Procedure Date Related Diagnosis Body Site BILATERAL L4-5 TRANSFORAMINAL 05/08/16 Injection(s), anesthetic agent and/or 05/08/16 steroid, transforaminal epidural, with imaging guidance (fluoroscopy or CT); lumbar or sacral, single level T 7-8 Translaminar 5/18/16 Right C5-6 Transforaminal 12/22/15 Right C5-6 Transforaminal [...] Extracted from: Title: Ambulatory Patient Education Author: Jayne Clay RN Date: Procedures Epidural Steroid Injection An epidural steroid injection is given to relieve pain in your neck, back, or legs that is caused by the irritation or swelling of a nerve root. This procedure involves injecting a steroid and numbing medicine (anesthetic) into the epidural space. The epidural space is the space between the outer covering of your spinal cord and the bones that form your backbone (vertebra). LET YOUR HEALTH CARE PROVIDER KNOW ABOUT: Any allergies you have. All medicines you are taking, including vitamins, herbs, eye drops, creams, and gzee-gtj-oztturn medicines such as aspirin. Previous problems you or members of your family have had with the use of anesthetics. Any blood disorders or blood clotting disorders you have. Previous surgeries you have had. Medical conditions you have. RISKS AND COMPLICATIONS Generally, this is a safe procedure. However, as with any procedure, complications can occur. Possible complications of epidural steroid injection include: Headache. Bleeding. Infection. Allergic reaction to the medicines. Damage to your nerves. The response to this procedure depends on the underlying cause of the pain and its duration. People who have long-term (chronic) pain are less likely to benefit from epidural steroids than are those people whose pain comes on strong and suddenly. BEFORE THE PROCEDURE Ask your health care provider about changing or stopping your regular medicines. You may be advised to stop taking blood-thinning medicines a few days before the procedure. You may be given medicines to reduce anxiety. Arrange for someone to take you home after the procedure. PROCEDURE You will remain awake during the procedure. You may receive medicine to make you relaxed. You will be asked to lie on your stomach. The injection site will be cleaned. The injection site will be numbed with a medicine (local anesthetic). A needle will be injected through your skin into the epidural space. Your health care provider will use an X-ray machine to ensure that the steroid is delivered closest to the affected nerve. You may have minimal discomfort at this time. Once the needle is in the right position, the local anesthetic and the steroid will be injected into the epidural space. The needle will then be removed and a bandage will be applied to the injection site. AFTER THE PROCEDURE You may be monitored for a short time before you go home. You may feel weakness or numbness in your arm or leg, which disappears within hours. You may be allowed to eat, drink, and take your regular medicine. You may have soreness at the site of the injection. This information is not intended to replace advice given to you by your health care provider. Make sure you discuss any questions you have with your health care provider. Document Released: 01/07/2009 Document Revised: 06/03/2014 Document Reviewed: ExitCare Patient Information 2016 [employer], [facility]. No follow up information was provided.
--- OUTSIDE RECORDS SUMMARY | 2017-02-27 12:48 | XMS REPORT | Referral Summary ---
Author Author [facility] Organization [facility] Address Unknown Phone Unavailable Care Team Providers Care Technical Product Manager Name Role Phone Daniel Ibrahim Primary Care Physician [phone] Encounter Date(s): 09/21/15 - 09/21/15 [facility] [address] [place] [phone] Discharge Diagnosis: Cervicalgia Discharge Diagnosis: Fatigue Discharge Diagnosis: Acute sinusitis Discharge Diagnosis: Thyromegaly Discharge Disposition: 01-Home or Self Care Attending Physician: Chery Lloyd PA-C Admitting Physician: Chery Lloyd PA-C Vital Signs Most recent to 1 oldest [Reference Range]: Temperature Tympanic 36.5 degC [36.6-38.1 degC] *LOW* (09/21/15 1:07 PM) Peripheral Pulse 80 bpm Rate [60-100 bpm] (09/21/15 1:07 PM) Blood Pressure 114/59 mmHg [90-140/60-90 mmHg] (09/21/15 1:07 PM) Problem List Condition Effective Dates Status [...] AND Active OTHER CHEST SYMPTOMS itching Medications [place] 5 mg-325 mg oral tablet 1 tabs, Oral, q6hr, as needed for pain, #40 Must last 30 days. MAY FILL ON 08/29., # 40 tabs, 0 Refill(s) Start Date: 09/21/15 Status: Ordered Zithromax Z-Marky 250 mg oral tablet 1 packets, Oral, Daily, as directed on package labeling, X 5 days, # 6 tabs, 0 Refill(s), Pharmacy: [facility] #[id number], 1 packets Oral Daily,x5 days, Instr:as directed on package labeling Start Date: 09/21/15 Stop Date: 09/26/15 Status: Ordered Results Chemistry Most recent to 1 oldest [Reference Range]: TSH with Reflex Free 0.54 T4 [0.35-4.94] (09/21/15 1:45 PM) Immunizations Vaccine Date Refusal Reason hepatitis B adult vaccine 08/16/00 hepatitis B adult vaccine 05/16/99 hepatitis B adult vaccine 06/07/98 influenza virus vaccine, live 07/18/13 tetanus-diphth toxoids (Td) adult/adol 05/16/99 Procedures Procedure Date Related Diagnosis Body Site Collection of venous blood by venipuncture 09/21/15 Right C2-3 Radiofrequency 09/08/15 Right C2-3 Medial [...] Education Author: Chery Lloyd PA-C Date : 09/21/15 Allergy Sinusitis Sinusitis is redness, soreness, and inflammation of the paranasal sinuses. Paranasal sinuses are air pockets within the bones of your face (beneath the eyes, the middle of the forehead, or above the eyes). In healthy paranasal sinuses, mucus is able to drain out, and air is able to circulate through them by way of your nose. However, when your paranasal sinuses are inflamed, mucus and air can become trapped. This can allow bacteria and other germs to grow and cause infection. Sinusitis can develop quickly and last only a short time (acute) or continue over a long period (chronic). Sinusitis that lasts for more than 12 weeks is considered chronic. CAUSES Causes of sinusitis include: Allergies. Structural abnormalities, such as displacement of the cartilage that separates your nostrils (deviated septum), which can decrease the air flow through your nose and sinuses and affect sinus drainage. Functional abnormalities, such as when the small hairs (cilia) that line your sinuses and help remove mucus do not work properly or are not present. SIGNS AND SYMPTOMS Symptoms of acute and chronic sinusitis are the same. The primary symptoms are pain and pressure around the affected sinuses. Other symptoms include: Upper toothache. Earache. Headache. Bad breath. Decreased sense of smell and taste. A cough, which worsens when you are lying flat. Fatigue. Fever. Thick drainage from your nose, which often is green and may contain pus ( purulent). Swelling and warmth over the affected sinuses. DIAGNOSIS Your health care provider will perform a physical exam. During the exam, your health care provider may: Look in your nose for signs of abnormal growths in your nostrils (nasal polyps). Tap over the affected sinus to check for signs of infection. View the inside of your sinuses (endoscopy) using an imaging device that has a light attached (endoscope). If your health care provider suspects that you have chronic sinusitis, one or more of the following tests may be recommended: Allergy tests. Nasal culture. A sample of mucus is taken from your nose, sent to a lab, and screened for bacteria. Nasal cytology. A sample of mucus is taken from your nose and examined by your health care provider to determine if your sinusitis is related to an allergy. TREATMENT Most cases of acute sinusitis are related to a viral infection and will resolve on their own within 10 days. Sometimes medicines are prescribed to help relieve symptoms (pain medicine, decongestants, nasal steroid sprays, or saline sprays) . However, for sinusitis related to a bacterial infection, your health care provider will prescribe antibiotic medicines. These are medicines that will help kill the bacteria causing the infection. Rarely, sinusitis is caused by a fungal infection. In theses cases, your health care provider will prescribe antifungal medicine. For some cases of chronic sinusitis, surgery is needed. Generally, these are cases in which sinusitis recurs more than 3 times per year, despite other treatments. HOME CARE INSTRUCTIONS Drink plenty of water. Water helps thin the mucus so your sinuses can drain more easily. Use a humidifier. Inhale steam 3 to 4 times a day (for example, sit in the bathroom with the shower running). Apply a warm, moist washcloth to your face 3 to 4 times a day, or as directed by your health care provider. Use saline nasal sprays to help moisten and clean your sinuses. Take medicines only as directed by your health care provider. If you were prescribed either an antibiotic or antifungal medicine, finish it all even if you start to feel better. SEEK IMMEDIATE MEDICAL CARE IF: You have increasing pain or severe headaches. You have nausea, vomiting, or drowsiness. You have swelling around your face. You have vision problems. You have a stiff neck. You have difficulty breathing. MAKE SURE YOU: Understand these instructions. Will watch your condition. Will get help right away if you are not doing well or get worse. Document Released: 10/01/2006 Document Revised: 02/15/2015 Document Reviewed: ExitCare Patient Information 2015 [employer]. This information is not intended to replace advice given to you by your health care provider. Make sure you discuss any questions you have with your health care provider. Family Medicine Fatigue Fatigue is a feeling of tiredness, lack of energy, lack of motivation, or feeling tired all the time. Having enough rest, good nutrition, and reducing stress will normally reduce fatigue. Consult your caregiver if it persists. The nature of your fatigue will help your caregiver to find out its cause. The treatment is based on the cause. CAUSES There are many causes for fatigue. Most of the time, fatigue can be traced to one or more of your habits or routines. Most causes fit into one or more of three general areas. They are: Lifestyle problems Sleep disturbances. Overwork. Physical exertion. Unhealthy habits. Poor eating habits or eating disorders. Alcohol and/or drug use . Lack of proper nutrition (malnutrition). Psychological problems Stress and/or anxiety problems. Depression. Grief. Boredom. Medical Problems or Conditions Anemia. . Thyroid gland problems. Recovery from major surgery. Continuous pain. Emphysema or asthma that is not well controlled Allergic conditions. Diabetes. Infections (such as mononucleosis). Obesity. Sleep disorders, such as sleep apnea. Heart failure or other heart-related problems. Cancer. Kidney disease. Liver disease. Effects of certain medicines such as antihistamines, cough and cold remedies, prescription pain medicines, heart and blood pressure medicines, drugs used for treatment of cancer, and some antidepressants. SYMPTOMS The symptoms of fatigue include: Lack of energy. Lack of drive (motivation). Drowsiness. Feeling of indifference to the surroundings. DIAGNOSIS The details of how you feel help guide your caregiver in finding out what is causing the fatigue. You will be asked about your present and past health condition. It is important to review all medicines that you take, including prescription and non-prescription items. A thorough exam will be done. You will be questioned about your feelings, habits, and normal lifestyle. Your caregiver may suggest blood tests, urine tests, or other tests to look for common medical causes of fatigue. TREATMENT Fatigue is treated by correcting the underlying cause. For example, if you have continuous pain or depression, treating these causes will improve how you feel. Similarly, adjusting the dose of certain medicines will help in reducing fatigue. HOME CARE INSTRUCTIONS Try to get the required amount of good sleep every night. Eat a healthy and nutritious diet, and drink enough water throughout the day. Practice ways of relaxing (including yoga or meditation). Exercise regularly. Make plans to change situations that cause stress. Act on those plans so that stresses decrease over time. Keep your work and personal routine reasonable. Avoid street drugs and minimize use of alcohol. Start taking a daily multivitamin after consulting your caregiver. SEEK MEDICAL CARE IF: You have persistent tiredness, which cannot be accounted for. You have fever. You have unintentional weight loss. You have headaches. You have disturbed sleep throughout the night. You are feeling sad. You have constipation. You have dry skin. You have gained weight. You are taking any new or different medicines that you suspect are causing fatigue. You are unable to sleep at night. You develop any unusual swelling of your legs or other parts of your body. SEEK IMMEDIATE MEDICAL CARE IF: You are feeling confused. Your vision is blurred. You feel faint or pass out. You develop severe headache. You develop severe abdominal, pelvic, or back pain. You develop chest pain, shortness of breath, or an irregular or fast heartbeat. You are unable to pass a normal amount of urine. You develop abnormal bleeding such as bleeding from the rectum or you vomit blood. You have thoughts about harming yourself or committing suicide. You are worried that you might harm someone else. MAKE SURE YOU: Understand these instructions. Will watch your condition. Will get help right away if you are not doing well or get worse. Document Released: 07/28/2008 Document Revised: 12/23/2012 Document Reviewed: ExitCare Patient Information 2015 [facility]. This information is not intended to replace advice given to you by your health care provider. Make sure you discuss any questions you have with your health care provider. No follow up information was provided. Extracted from: Title: Office Visit Note Author: Chery Lloyd PA-C Date: 09/21/15 Assessment/Plan Acute sinusitis Will treat with Z-marky as she is allergic to PCN. Try Flonase nasal spray. May continue with Zyrtec. Push fluids. RTC if not improving. Ordered: Office Visit Level 4 Est 05804 Cervicalgia At thistime, I recommended she stay with pain management. Offered to send to ortho, butmost likely they willwant to just do surgery if it is indicated. She declines referral to ortho for now. I also told her that if shewants to increase her [place], she will need apptwith Dr. Ibrahim , as I will not do this for her. I did print off her usual [place] refill to fill on 09/24. Ordered: Office Visit Level 4 Est 83585 Fatigue, Fatigue See below. Has had routine labs checked in November, and glucose was 65. Glucose has been normal in the past. I don't suspect diabetes, but will check TSH. Ordered: Office Visit Level 4 Est 82713 TSH with Reflex Free T4 Thyromegaly Appears that she has a fairly significant goiter. Will check TSH first, and will most likely need an US of the thyroid as well. Ordered: Office Visit Level 4 Est [id number] Orders: azithromycin, 1 packets, Oral, Daily, as directed on package labeling , X 5 days, # 6 tabs, 0 Refill(s), Pharmacy: [facility] #[id number], 1 packets Oral Daily,x5 days,Instr:as directed on package labeling HYDROcodone-acetaminophen, 1 tabs, Oral, q6hr, as needed for pain, #40 Must last 30 days. MAY FILL ON 09/24/15., # 40 tabs, 0 Refill(s)
--- OUTSIDE RECORDS SUMMARY | 2017-02-27 12:48 | XMS REPORT | Referral Summary ---
Author Author [facility] Organization [facility] Address Unknown Phone Unavailable Care Team Providers Care Solar Energy Systems Engineer Name Role Phone Daniel Ibrahim Primary Care Physician [phone] Encounter Date(s): 11/24/16 - 11/24/16 [facility], [address] [place] [id number] Discharge Diagnosis: Acute bacterial sinusitis Discharge Diagnosis: Cough Discharge Disposition: 01-Home or Self Care Attending Physician: Chery Lloyd PA-C Admitting Physician: Chery Lloyd PA-C Vital Signs Most recent to 1 oldest [Reference Range]: Temperature Tympanic 37 degC [36.6-38.1 degC] (11/24/16 3:32 PM) Peripheral Pulse 100 bpm Rate [60-100 bpm] (11/24/16 3:32 PM) Blood Pressure 122/80 mmHg [90-140/60-90 mmHg] (11/24/16 3:32 PM) Problem List Condition Effective Dates Status [...] not elsewhere classified(Confirmed ) Esophageal Active reflux(Confirmed) Generalized anxiety Active disorder(Confirmed) Unspecified Active hypothyroidism(Confi rmed) Pneumonia, organism Active [...] herniation(Confirmed ) Thoracic disc Active herniation(Confirmed ) Thoracic disc Active herniation(Confirmed ) Sinus Resolved infection(Confirmed) Lumbar spinal Active stenosis(Confirmed) Thoracic Active stenosis(Confirmed) Tension Active headache(Confirmed) Thoracic back Active pain(Confirmed) Thoracic Active radiculopathy(Confir med) Thoracic Active radiculopathy(Confir med) Tourette's Resolved syndrome(Confirmed)3 1NSVD 2NSVD 3Pre School Age Allergies, Adverse Reactions, Alerts Substance Reaction Severity Status Amitex LA Active penicillin Rash Active SUMAtriptan HEADACHE Active traMADol SYMPTOMS INVOLVING RESPIRATORY SYSTEM AND Active OTHER CHEST SYMPTOMS itching Medications Ativan 0.5 mg oral tablet 0.5 mg 1 tabs, Oral, TID, as needed for anxiety, Must last 30 days Zoie Flanagan May fill on 10/30/16, # 30 tabs, 0 Refill(s) Start Date: 10/30/16 Status: Ordered busPIRone 7.5 mg oral tablet 7.5 mg 1 tabs, Oral, TID, (Was filled #90/0 on 07/21/16), # 90 tabs, 0 Refill(s) , Pharmacy: [facility] #[id number], 1 tabs Oral TID,Instr:(Was filled #90/0 on 07/21/16) Start Date: 08/28/16 Status: Ordered cefdinir 300 mg oral capsule 300 mg 1 caps, Oral, q12hr, X 10 days, # 20 caps, 0 Refill(s), Pharmacy: [facility] #[id number], 1 caps Oral q12hr,x10 days Start Date: 11/24/16 Stop Date: 12/04/16 Status: Ordered cyclobenzaprine 10 mg oral tablet See Instructions, as needed for spasm, PT. REPORTS HER DENTIST GAVE HER A MUSCLE RELAXER SHE CLINCHES HER JAW @ HS 10 MG @ HS, 0 Refill(s) Start Date: 11/24/16 Status: Ordered [place] 5 mg-325 mg oral tablet 1 tabs, Oral, q6hr, as needed for pain, #60 Must last 30 days. May fill 2016, # 60 tabs, 0 Refill(s) Start Date: 11/02/16 Status: Ordered ProAir RespiClick 90 mcg/inh inhalation powder 2 puffs, Inhalation, q4hr, as needed, # 1 Each, 0 Refill(s), Pharmacy: [facility] #[id number] Start Date: 10/03/16 Status: Ordered Results No data available for this section Immunizations Given and Recorded Vaccine Date Status Refusal Reason hepatitis B adult vaccine 08/16/00 Recorded hepatitis B adult vaccine 05/16/99 Recorded hepatitis B adult vaccine 06/07/98 Recorded influenza virus vaccine, inactivated 07/20/16 Given influenza virus vaccine, live 07/18/13 Given tetanus-diphth toxoids (Td) adult/adol 05/16/99 Recorded Procedures Procedure Date Related Diagnosis Body Site T7-8 Translaminar 07/10/16 BILATERAL L4-5 TRANSFORAMINAL 05/08/16 T 7-8 Translaminar 03/01/16 Right C5-6 Transforaminal [...] and Plan Extracted from: Title: Office Visit Note- URI Author: Chery Lloyd PA-C Date: 11/24 Assessment/Plan Acute bacterial sinusitis Pt is allergic to PCN, but this was noted to be a rash and when she was very young. Z-madyson didn't seem to help last time. Will try Omnicef at this time. Rest and push fluids. Call if not improving or worsening. Ordered: cefdinir, 300 mg 1 caps, Oral, q12hr, X 10 days, # 20 caps, 0 Refill(s), Pharmacy: [facility] #[id number], 1 caps Oral q12hr,x10 days Office Visit Level 3 Est 86291 Cough May continue with ProAir inhaler if needed. Ordered: Office Visit Level 3 Est 80494
--- OUTSIDE RECORDS SUMMARY | 2017-02-27 12:48 | XMS REPORT | Referral Summary ---
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 Name Role Phone Daniel Ibrahim Primary Care Physician [phone] Encounter VC Date(s): 04/01/15 - 04/01/15 [facility] [address] [place], [place] [address] Discharge Diagnosis: Cervical pain Discharge Diagnosis: Preop examination Discharge Diagnosis: Cervical spondylosis Discharge Disposition: 01-Home or Self Care Attending Physician: Sam Roth MD Admitting Physician: Sam Roth MD Referring Physician: Abimael Ibrahim MD Vital Signs Most recent to 1 oldest [Reference Range]: Peripheral Pulse 69 bpm Rate [60-100 bpm] (04/01/15 11:03 AM) Respiratory Rate 14 br/min [14-20 br/min] (04/01/15 11:03 AM) Blood Pressure 128/90 mmHg [90-140/60-90 mmHg] (04/01/15 11:03 AM) SpO2 100 % (04/01/15 11:03 AM) Problem List Condition Effective Dates Status [...] spasm, # 60 tabs, 0 Refill(s), Pharmacy: [facility] #[id number], 1 tabs Oral TID,PRN:as needed for spasm Start Date: 09/24/15 Status: Ordered Cymbalta 30 mg oral delayed release capsule 30 mg 1 caps, Oral, Bedtime (once a day), # 30 caps, 0 Refill(s), Pharmacy: [facility] #[id number], 1 caps Oral Bedtime (once a day) Start Date: 09/24/15 Status: Ordered [place] 5 mg-325 mg oral tablet 1 tabs, Oral, q6hr, as needed for pain, #40 Must last 30 days. MAY FILL ON 08/29., # 40 tabs, 0 Refill(s) Start Date: 09/21/15 Status: Ordered [place] 5 mg-325 mg oral tablet 1 tabs, [...] C4-6 Medial Branch Block with 04/08/15 Differential Injection(s), diagnostic or therapeutic 04/01/15 agent, paravertebral facet (zygapophyseal) joint (or nerves innervating that joint) with image guidance (fluoroscopy or CT), cervical or thoracic; second level (List separately in addition to code for primary proced Injection(s), diagnostic or therapeutic 04/01/15 agent, paravertebral facet (zygapophyseal) joint (or nerves innervating that joint) with image guidance (fluoroscopy or CT), cervical or thoracic; second level (List separately in addition to code for primary proced Injection(s), diagnostic or therapeutic 04/01/15 agent, paravertebral facet (zygapophyseal) joint (or nerves innervating that joint) with image guidance (fluoroscopy or CT), cervical or thoracic; second level (List separately in addition to code for primary proced Injection(s), diagnostic or therapeutic 04/01/15 agent, paravertebral facet (zygapophyseal) joint (or nerves innervating that joint) with image guidance (fluoroscopy or CT), cervical or thoracic; single level Injection(s), diagnostic or therapeutic 04/01/15 agent, paravertebral facet (zygapophyseal) joint (or nerves innervating that joint) with image guidance (fluoroscopy or CT), lumbar or sacral; second level (List separately in addition to code for primary procedure) Injection(s), diagnostic or therapeutic 04/01/15 agent, paravertebral facet (zygapophyseal) joint (or nerves innervating that joint) with image guidance (fluoroscopy or CT), lumbar or sacral; second level (List separately in addition to code for primary procedure) Right C4-6 Medial Branch Block 04/01/15 Right C5-6 Transforaminal 01/19/15 Cervical Translaminar 12/07/14 Sinus Social History Social History Type Response Smoking Status Former smoker; Type: Cigarettes Assessment and Plan No data available for this section
--- OUTSIDE RECORDS SUMMARY | 2017-02-27 12:48 | XMS REPORT | Referral Summary ---
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 Role Phone Daniel Ibrahim Primary Care Physician [phone] Encounter VC Date(s): 06/01/15 - 06/01/15 [facility] [address] [place] [id number]- Discharge Disposition: 01-Home or Self Care Attending Physician: Abimael Ibrahim MD Admitting Physician: Abimael Ibrahim MD Vital Signs Most recent to 1 oldest [Reference Range]: Peripheral Pulse 72 bpm Rate [60-100 bpm] (06/01/15 11:10 AM) Blood Pressure 120/70 mmHg [90-140/60-90 mmHg] (06/01/15 11:10 AM) Problem List Condition Effective Dates Status [...] AND Active OTHER CHEST SYMPTOMS itching Medications [place] 5 mg-325 mg oral tablet 1 tabs, [...] Extracted from: Title: Ambulatory Patient Education Author: Abimael Ibrahim MD Date: Family Medicine Headaches, Frequently Asked Questions MIGRAINE HEADACHES Q: What is migraine? What causes it? How can I treat it? A: Generally, migraine headaches begin as a dull ache. Then they develop into a constant, throbbing, and pulsating pain. You may experience pain at the temples. You may experience pain at the front or back of one or both sides of the head. The pain is usually accompanied by a combination of: Nausea. Vomiting. Sensitivity to light and noise. Some people (about 15%) experience an aura (see below) before an attack. The cause of migraine is believed to be chemical reactions in the brain. Treatment for migraine may include mkic-eqn-afqjcmr or prescription medications. It may also include self-help techniques. These include relaxation training and biofeedback. Q: What is an aura? A: About 15% of people with migraine get an "aura". This is a sign of neurological symptoms that occur before a migraine headache. You may see wavy or jagged lines, dots, or flashing lights. You might experience tunnel vision or blind spots in one or both eyes. The aura can include visual or auditory hallucinations (something imagined). It may include disruptions in smell (such as strange odors), taste or touch. Other symptoms include: Numbness. A "pins and needles" sensation. Difficulty in recalling or speaking the correct word. These neurological events may last as long as 60 minutes. These symptoms will fade as the headache begins. Q: What is a trigger? A: Certain physical or environmental factors can lead to or "trigger" a migraine. These include: Foods. Hormonal changes. Weather. Stress. It is important to remember that triggers are different for everyone. To help prevent migraine attacks, you need to figure out which triggers affect you. Keep a headache diary. This is a good way to track triggers. The diary will help you talk to your healthcare professional about your condition. Q: Does weather affect migraines? A: Bright sunshine, hot, humid conditions, and drastic changes in barometric pressure may lead to, or "trigger," a migraine attack in some people. But studies have shown that weather does not act as a trigger for everyone with migraines. Q: What is the link between migraine and hormones? A: Hormones start and regulate many of your body's functions. Hormones keep your body in balance within a constantly changing environment. The levels of hormones in your body are unbalanced at times. Examples are during menstruation , , or menopause. That can lead to a migraine attack. In fact, about three quarters of all women with migraine report that their attacks are related to the menstrual cycle. Q: Is there an increased risk of stroke for migraine sufferers? A: The likelihood of a migraine attack causing a stroke is very remote. That is not to say that migraine sufferers cannot have a stroke associated with their migraines. In persons under age 40, the most common associated factor for stroke is migraine headache. But over the course of a person's normal life span , the occurrence of migraine headache may actually be associated with a reduced risk of dying from cerebrovascular disease due to stroke. Q: What are acute medications for migraine? A: Acute medications are used to treat the pain of the headache after it has started. Examples rzbb-ozr-vrqnedb medications, NSAIDs, ergots, and triptans. Q: What are the triptans? A: Triptans are the newest class of abortive medications. They are specifically targeted to treat migraine. Triptans are vasoconstrictors. They moderate some chemical reactions in the brain. The triptans work on receptors in your brain. Triptans help to restore the balance of a neurotransmitter called serotonin. Fluctuations in levels of serotonin are thought to be a main cause of migraine. Q: Are hqie-lct-dkoqsiu medications for migraine effective? A: Dngt-rui-gtwxxsv, or "OTC," medications may be effective in relieving mild to moderate pain and associated symptoms of migraine. But you should see your caregiver before beginning any treatment regimen for migraine. Q: What are preventive medications for migraine? A: Preventive medications for migraine are sometimes referred to as "prophylactic" treatments. They are used to reduce the frequency, severity, and length of migraine attacks. Examples of preventive medications include antiepileptic medications, antidepressants, beta-blockers, calcium channel blockers, and NSAIDs (nonsteroidal anti-inflammatory drugs). Q: Why are anticonvulsants used to treat migraine? A: During the past few years, there has been an increased interest in antiepileptic drugs for the prevention of migraine. They are sometimes referred to as "anticonvulsants". Both epilepsy and migraine may be caused by similar reactions in the brain. Q: Why are antidepressants used to treat migraine? A: Antidepressants are typically used to treat people with depression. They may reduce migraine frequency by regulating chemical levels, such as serotonin, in the brain. Q: What alternative therapies are used to treat migraine? A: The term "alternative therapies" is often used to describe treatments considered outside the scope of conventional Western medicine. Examples of alternative therapy include acupuncture, acupressure, and yoga. Another common alternative treatment is herbal therapy. Some herbs are believed to relieve headache pain. Always discuss alternative therapies with your caregiver before proceeding. Some herbal products contain arsenic and other toxins. TENSION HEADACHES Q: What is a tension-type headache? What causes it? How can I treat it? A: Tension-type headaches occur randomly. They are often the result of temporary stress, anxiety, fatigue, or anger. Symptoms include soreness in your temples, a tightening band-like sensation around your head (a "vice-like" ache) . Symptoms can also include a pulling feeling, pressure sensations, and casey head and neck muscles. The headache begins in your forehead, temples , or the back of your head and neck. Treatment for tension-type headache may include udel-hxg-egbaquf or prescription medications. Treatment may also include self-help techniques such as relaxation training and biofeedback. CLUSTER HEADACHES Q: What is a cluster headache? What causes it? How can I treat it? A: Cluster headache gets its name because the attacks come in groups. The pain arrives with little, if any, warning. It is usually on one side of the head. A tearing or bloodshot eye and a runny nose on the same side of the headache may also accompany the pain. Cluster headaches are believed to be caused by chemical reactions in the brain. They have been described as the most severe and intense of any headache type. Treatment for cluster headache includes prescription medication and oxygen. SINUS HEADACHES Q: What is a sinus headache? What causes it? How can I treat it? A: When a cavity in the bones of the face and skull (a sinus) becomes inflamed, the inflammation will cause localized pain. This condition is usually the result of an allergic reaction, a tumor, or an infection. If your headache is caused by a sinus blockage, such as an infection, you will probably have a fever. An x-ray will confirm a sinus blockage. Your caregiver's treatment might include antibiotics for the infection, as well as antihistamines or decongestants. REBOUND HEADACHES Q: What is a rebound headache? What causes it? How can I treat it? A: A pattern of taking acute headache medications too often can lead to a condition known as "rebound headache." A pattern of taking too much headache medication includes taking it more than 2 days per week or in excessive amounts. That means more than the label or a caregiver advises. With rebound headaches, your medications not only stop relieving pain, they actually begin to cause headaches. Doctors treat rebound headache by tapering the medication that is being overused. Sometimes your caregiver will gradually substitute a different type of treatment or medication. Stopping may be a challenge. Regularly overusing a medication increases the potential for serious side effects. Consult a caregiver if you regularly use headache medications more than 2 days per week or more than the label advises. ADDITIONAL QUESTIONS AND ANSWERS Q: What is biofeedback? A: Biofeedback is a self-help treatment. Biofeedback uses special equipment to monitor your body's involuntary physical responses. Biofeedback monitors: Breathing. Pulse. Heart rate. Temperature. Muscle tension. Brain activity. Biofeedback helps you refine and perfect your relaxation exercises. You learn to control the physical responses that are related to stress. Once the technique has been mastered, you do not need the equipment any more. Q: Are headaches hereditary? A: Four out of five (80%) of people that suffer report a family history of migraine. Scientists are not sure if this is genetic or a family predisposition. Despite the uncertainty, a child has a 50% chance of having migraine if one parent suffers. The child has a 75% chance if both parents suffer. Q: Can children get headaches? A: By the time they reach high school, most young people have experienced some type of headache. Many safe and effective approaches or medications can prevent a headache from occurring or stop it after it has begun. Q: What type of doctor should I see to diagnose and treat my headache? A: Start with your primary caregiver. Discuss his or her experience and approach to headaches. Discuss methods of classification, diagnosis, and treatment. Your caregiver may decide to recommend you to a headache specialist, depending upon your symptoms or other physical conditions. Having diabetes, allergies, etc., may require a more comprehensive and inclusive approach to your headache. The National Head[employer] Foundation will provide, upon request, a list of NHF physician members in your state. Document Released: 12/21/2004 Document Revised: 12/23/2012 Document Reviewed: ExitCare Patient Information 2015 Refund Exchange. This information is not intended to replace advice given to you by your health care provider. Make sure you discuss any questions you have with your health care provider. No follow up information was provided. Extracted from: Title: Office Visit Note Author: Abimael Ibrahim MD Date: 06/01/15 Assessment/Plan Cervical herniation This issue is stable and appropriate refills, lab, and f/ u have been discussed. [place] refilled and narcotic policy discussed. Working with Dr. Roth. 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 She is NOTto drive within 24 hours of the use of [place] due to potential sedation. Migraine This issue is stable and appropriate refills, lab, and f/u have been discussed.
--- OUTSIDE RECORDS SUMMARY | 2017-02-27 12:48 | XMS REPORT | Referral Summary ---
Author Author [facility] Organization [facility] Address Unknown Phone Unavailable Care Team Providers Care Blending Technician Name Role Phone Daniel Ibrahim Primary Care Physician [phone] Encounter VC Date(s): 07/26/15 - 07/26/15 [facility] [address] [place], [place] [address] Discharge Diagnosis: Cervicogenic headache Discharge Diagnosis: Cervical spondylosis Discharge Disposition: 01-Home or Self Care Attending Physician: Sam Roth MD Admitting Physician: Sam Roth MD Referring Physician: Abimael Ibrahim MD Vital Signs Most recent to 1 oldest [Reference Range]: Peripheral Pulse 92 bpm Rate [60-100 bpm] (07/26/15 9:12 AM) Respiratory Rate 16 br/min [14-20 br/min] (07/26/15 9:12 AM) Blood Pressure 113/79 mmHg [90-140/60-90 mmHg] (07/26/15 9:12 AM) SpO2 100 % (07/26/15 9:12 AM) Problem List Condition Effective Dates Status [...] AND Active OTHER CHEST SYMPTOMS itching Medications ibuprofen 200 mg oral capsule 2 caps, Oral, QID, as needed for fever, # 120 caps, 0 Refill(s) Start Date: 01/29/15 Status: Ordered [place] 5 mg-325 mg oral tablet 1 tabs, Oral, q6hr, as needed for pain, #40 Must last 30 days, # 40 tabs, 0 Refill(s) Start Date: 07/26/15 Status: Ordered Tylenol Cap[place] 325 mg, Oral, prn, 0 Refill(s) Start Date: 06/15/15 Status: Ordered Results No data available for this section Immunizations Vaccine Date Refusal Reason hepatitis B adult vaccine 08/16/00 hepatitis B adult vaccine 05/16/99 hepatitis B adult vaccine 06/07/98 influenza virus vaccine, live 07/18/13 tetanus-diphth toxoids (Td) adult/adol 05/16/99 Procedures Procedure Date Related Diagnosis Body Site Injection(s), diagnostic or therapeutic 07/26/15 agent, paravertebral facet (zygapophyseal) joint (or nerves innervating that joint) with image guidance (fluoroscopy or CT), cervical or thoracic; single level.. Right C2-3 Medial Branch Block with 07/26/15 [...]
--- OUTSIDE RECORDS SUMMARY | 2017-02-27 12:49 | XMS REPORT | Referral Summary ---
Author Author [facility] Organization [facility] Address Unknown Phone Unavailable Care Team Providers Care Line Supply Name Role Phone Daniel Ibrahim Primary Care Physician [phone] Encounter Date(s): 02/04/16 - 02/04/16 [facility], [address] [place] [id number] Discharge Disposition: 01-Home or Self Care Attending Physician: Abimael Ibrahim MD Admitting Physician: Abimael Ibrahim MD Vital Signs Most recent to 1 oldest [Reference Range]: Blood Pressure 110/70 mmHg [90-140/60-90 mmHg] (02/04/16 11:41 AM) Problem List Condition Effective Dates Status [...] AND Active OTHER CHEST SYMPTOMS itching Medications [place] 5 mg-325 mg oral tablet 1 tabs, Oral, q6hr, as needed for pain, #60 Must last 30 days., # 60 tabs, 0 Refill(s) Start Date: 01/28/16 Status: Ordered predniSONE 20 mg oral tablet 20 mg 1 tabs, Oral, Daily, X 5 days, # 5 tabs, 0 Refill(s), Pharmacy: [facility] #[id number], 1 tabs Oral Daily,x5 days Start Date: 02/04/16 Stop Date: 02/09/16 Status: Ordered Results No data available for [...] Patient Education Author: Abimael Ibrahim MD Date: Behavioral Health Anger Management Anger is a normal human emotion. However, anger can range from mild irritation to rage. When your anger becomes harmful to yourself or others, it is unhealthy anger. CAUSES There are many reasons for unhealthy anger. Many people learn how to express anger from observing how their family expressed anger. In troubled, chaotic, or abusive families, anger can be expressed as rage or even violence. Children can grow up never learning how healthy anger can be expressed. Factors that contribute to unhealthy anger include: Drug or alcohol abuse. Post-traumatic stress disorder. Traumatic brain injury. COMPLICATIONS People with unhealthy anger tend to overreact and retaliate against a real or imagined threat. The need to retaliate can turn into violence or verbal abuse against another person. Chronic anger can lead to health problems, such as hypertension, high blood pressure, and depression. TREATMENT Exercising, relaxing, meditating, or writing out your feelings all can be beneficial in managing moderate anger. For unhealthy anger, the following methods may be used: Cognitive-behavioral counseling (learning skills to change the thoughts that influence your mood). Relaxation training. Interpersonal counseling. Assertive communication skills. Medication. This information is not intended to replace advice given to you by your health care provider. Make sure you discuss any questions you have with your health care provider. Document Released: 07/28/2008 Document Revised: 12/23/2012 Document Reviewed: [facility] Patient Information 2015 [facility]. Family Medicine Airborne Precautions Airborne precautions are a way to protect everyone from certain germs that are in the air. If you are on airborne precautions, you have or may have germs that can be spread when you talk, sneeze, or cough. These germs stay in the air for long periods of time and over long distances. RULES FOR PATIENTS You will be placed in a room that has a special air supply and frequent air exchanges. The door to your room must stay closed. Your time out of the room should be limited to tests that you need in other areas of the hospital. You must check with your nurse before leaving your room. Wear a mask if you go to another hospital area. Cover your mouth with a tissue when you cough. Cover your nose with a tissue when you sneeze. Wash your hands often. RULES FOR VISITORS If there is an "Airborne Precautions" sign on the door: You must check with the nurse before going into the room. You should not eat or drink while in the room. You should ask the nurse about using or touching any items in the room. If allowed into the patient's room: Wash your hands with soap and water or use hand supervisor international reservations before entering the room. You will be asked to wear a mask (respirator) over your nose and mouth before entering the room. It must fit tightly. Do not take off your mask in the room. Right after you leave the room, take off your mask and throw it in the trash. Wash your hands with soap and water or use hand supervisor international reservations. This information is not intended to replace advice given to you by your health care provider. Make sure you discuss any questions you have with your health care provider. Document Released: 03/19/2009 Document Revised: 12/23/2012 Document Reviewed: [employer] Patient Information 2015 [employer]. No follow up information was provided. Extracted from: Title: Office Visit Note Author: Abimael Ibrahim MD Date: 02/04/16 Assessment/Plan Acute URI Zpack and prednisone 20mg po daily for five days was given. A work/school note was offered and deferred by the patient. Bronchitis, not specified as acute or chronic See above. Chronic back pain This issue was reviewed, appears stable, and current therapy continued except as mentioned. Appropriate lab was reviewed from the most recent appropriate entry and lab was ordered if needed in the cpoe/nursing orders, and follow up recommended generally in 90 days and no later then six months. Has norco allowance and contract. Chronic neck pain See above. Pending appt with Dr. Buchanan.Discussed cymbalta or lyrica and declined by her. She is welcome to see Pain Management. No further norco adjustments at this time. Counseling for travel Discussed at length. Zpack given to take with her. Consider vaccines/etc/confirm no malaria exposure and call the office. Migraine The patient's issue is nearly or completely resolved. There is no further issues or testing desired by them at this time. Stable on meds.
--- OUTSIDE RECORDS SUMMARY | 2017-02-27 12:49 | XMS REPORT | Referral Summary ---
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 Role Phone Daniel Ibrahim Primary Care Physician [phone] Encounter [facility] Date(s): 10/27/15 - 10/27/15 [facility] [address] [place], [place] [address] Discharge Diagnosis: Cervical radiculopathy Discharge Diagnosis: Cervical herniation Discharge Disposition: 01-Home or Self Care Attending Physician: Sam Roth MD Admitting Physician: Sam Roth MD Referring Physician: Abimael Ibrahim MD Vital Signs Most recent to 1 oldest [Reference Range]: Peripheral Pulse 80 bpm Rate [60-100 bpm] (10/27/15 8:56 AM) Respiratory Rate 19 br/min [14-20 br/min] (10/27/15 8:56 AM) Blood Pressure 113/88 mmHg [90-140/60-90 mmHg] (10/27/15 8:56 AM) SpO2 99 % (10/27/15 8:56 AM) Problem List Condition Effective Dates Status [...] AND Active OTHER CHEST SYMPTOMS itching Medications [place] 5 mg-325 mg oral tablet 1 tabs, [...] Procedure Date Related Diagnosis Body Site Injection(s), anesthetic agent and/or 10/27/15 steroid, transforaminal epidural, with imaging guidance (fluoroscopy or CT); cervical or thoracic, single level Right C5-6 Transforaminal 10/27/15 Right C2-3 Radiofrequency [...]
--- OUTSIDE RECORDS SUMMARY | 2017-02-27 12:49 | XMS REPORT | Referral Summary ---
Author Organization Unknown Address Unknown Phone Unavailable Care Team Providers Care Cylinder Press Feeder Name Role Phone Meshamedhat Daniel Primary Care Physician [phone] Encounter Date(s): 12/07/14 - 12/07/14 [facility] [address] [place], [place] [address] Discharge Diagnosis: Cervical pain Discharge Diagnosis: Cervical herniation Discharge Diagnosis: Acute cervical radiculopathy Discharge Diagnosis: PREOPERATIVE EXAMINATION, UNSPECIFIED Discharge Disposition: Home or Self Care Attending Physician: Sam Roth MD Admitting Physician: Sam Roth MD Vital Signs Most recent to 1 oldest [Reference Range]: Peripheral Pulse 55 bpm Rate [60-100 bpm] *LOW* (12/07/14 9:45 AM) Respiratory Rate 13 br/min [14-20 br/min] *LOW* (12/07/14 9:45 AM) Blood Pressure 114/69 mmHg [90-140/60-90 mmHg] (12/07/14 9:45 AM) Most recent to 1 oldest [Reference Range]: SpO2 100 % (12/07/14 9:45 AM) Problem List Condition Effective Dates Status [...] 2009 Active 2 Cervical Active herniation(Confirmed ) Sinus Resolved infection(Confirmed) Tension Active headache(Confirmed) THORACIC OR Active LUMBOSACRAL NEURITIS OR RADICULITIS, UNSPECIFIED(Confirme d) Tourette's Resolved syndrome(Confirmed)3 1NSVD 2NSVD 3Pre School Age Allergies, Adverse Reactions, Alerts Substance Reaction Severity Status Amitex LA Active penicillin Rash Active SUMAtriptan HEADACHE Active traMADol SYMPTOMS INVOLVING RESPIRATORY SYSTEM AND Active OTHER CHEST SYMPTOMS itching Medications No Known Medications Results No data available for this section Immunizations Vaccine Date Refusal Reason hepatitis B adult vaccine 08/16/00 hepatitis B adult vaccine 05/16/99 hepatitis B adult vaccine 06/07/98 influenza virus vaccine, live 07/18/13 tetanus-diphth toxoids (Td) adult/adol 05/16/99 Procedures Procedure Date Related Diagnosis Body Site Cervical Translaminar 12/07/14 Injection(s), of diagnostic or therapeutic 12/07/14 substance(s) (including anesthetic, antispasmodic, opioid, steroid, other solution), not including neurolytic substances, including needle or catheter placement, includes contrast for localization when performed, Sinus Social History Social History Type Response Smoking Status Former smoker; Type: Cigarettes Assessment and Plan No data available for this section
--- OUTSIDE RECORDS SUMMARY | 2017-02-27 12:49 | XMS REPORT | Referral Summary ---
Author Author [facility] Organization [facility] Address Unknown Phone Unavailable Care Team Providers Care Operational Trainer Name Role Phone Daniel Ibrahim Primary Care Physician [phone] Encounter VC Date(s): 06/28/16 - 06/28/16 [facility] [address] [place], [place] [address] Discharge Disposition: 01-Home or Self Care Attending Physician: Elmer Kingsley Admitting Physician: Elmer Kingsley Referring Physician: Abimael Ibrahim MD Vital Signs Most recent to 1 oldest [Reference Range]: Blood Pressure 128/84 mmHg [90-140/60-90 mmHg] (06/28/16 1:09 PM) Problem List Condition Effective Dates Status [...] tabs, Oral, TID, as needed for anxiety, Zoie Flanagan, # 30 tabs, 0 Refill (s) Start Date: 06/21/16 Status: Ordered busPIRone 7.5 mg oral tablet 7.5 mg 1 tabs, Oral, TID, # 90 tabs, 0 Refill(s), Pharmacy: [facility] # [id number], 1 tabs Oral TID Start Date: 06/21/16 Status: Ordered [place] 5 mg-325 mg oral tablet 1 tabs, Oral, q6hr, as needed for pain, #60 Must last 30 days., # 60 tabs, 0 Refill(s) Start Date: 06/01/16 Status: Ordered Ocuflox 0.3% ophthalmic solution 2 drops, Eye-Right, TID, # 5 mL, 0 Refill(s), Pharmacy: [facility] #[id number] Start Date: 04/04/16 Stop Date: 04/09/16 Status: Ordered Results No data available for this section Immunizations Vaccine Date Refusal Reason hepatitis B adult vaccine 08/16/00 hepatitis B adult vaccine 05/16/99 hepatitis B adult vaccine 06/07/98 influenza virus vaccine, live 07/18/13 tetanus-diphth toxoids (Td) adult/adol 05/16/99 Procedures Procedure Date Related Diagnosis Body Site BILATERAL L4-5 TRANSFORAMINAL 05/08/16 T 7-8 Translaminar [...]
--- OUTSIDE RECORDS SUMMARY | 2017-02-27 12:49 | XMS REPORT | Referral Summary ---
Author Author [facility] Organization [facility] Address Unknown Phone Unavailable Care Team Providers Care Tooth Inspector Name Role Phone Daniel Ibrahim Primary Care Physician [phone] Encounter Date(s): 07/20/15 - 07/20/15 [facility] [address] [place], [place] [address] Discharge Diagnosis: Cervicogenic headache Discharge Diagnosis: Cervical spondylosis Discharge Disposition: 01-Home or Self Care Attending Physician: Sam Roth MD Admitting Physician: Sam Roth MD Referring Physician: Abimael Ibrahim MD Vital Signs Most recent to 1 oldest [Reference Range]: Respiratory Rate 24 br/min [14-20 br/min] *HI* (07/20/15 1:34 PM) Blood Pressure 124/77 mmHg [90-140/60-90 mmHg] (07/20/15 1:34 PM) SpO2 99 % (07/20/15 1:34 PM) Problem List Condition Effective Dates Status [...] AND Active OTHER CHEST SYMPTOMS itching Medications [place] 5 mg-325 mg oral tablet 1 tabs, Oral, q6hr, as needed for pain, #60 Must last 30 days., # 60 tabs, 0 Refill(s) Start Date: 01/28/16 Status: Ordered Results No data available for [...] C2-3 Medial Branch Block with 07/26/15 Differential Injection(s), diagnostic or therapeutic 07/20/15 agent, paravertebral facet (zygapophyseal) joint (or nerves innervating that joint) with image guidance (fluoroscopy or CT), cervical or thoracic; single level.. Right C5-6 Transforaminal 06/30/15 RIGHT C4-6 RADIO 04/28/15 Right C4-6 Medial Branch Block with 04/08/15 Differential Right C4-6 Medial Branch Block 04/01/15 Right C5-6 Transforaminal 01/19/15 Cervical Translaminar 12/07/14 Sinus Social History Social History Type Response Smoking Status Former smoker; Type: Cigarettes Assessment and Plan No data available for this section
--- OUTSIDE RECORDS SUMMARY | 2017-02-27 12:49 | XMS REPORT | Referral Summary ---
Author Author [facility] Organization [facility] Address Unknown Phone Unavailable Care Team Providers Care Button Spindler Name Role Phone Daniel Ibrahim Primary Care Physician [phone] Encounter VC Date(s): 04/13/15 - 04/13/15 [facility] [address] [place], [place] [address] Discharge Diagnosis: THORACIC OR LUMBOSACRAL NEURITIS OR RADICULITIS, UNSPECIFIED Discharge Diagnosis: Cervical spondylosis Discharge Diagnosis: Cervical herniation Discharge Disposition: -Home or Self Care Attending Physician: Debi Ricketts APRN Admitting Physician: Debi Ricketts APRN Referring Physician: Abimael Ibrahim MD Vital Signs Most recent to 1 oldest [Reference Range]: Blood Pressure 106/64 mmHg [90-140/60-90 mmHg] (04/13/15 1:36 PM) Problem List Condition Effective Dates Status [...] spasm, # 60 tabs, 0 Refill(s), Pharmacy: [facility] #[id number], 1 tabs Oral TID,PRN:as needed for spasm Start Date: 09/24/15 Status: Ordered Cymbalta 30 mg oral delayed release capsule 30 mg 1 caps, Oral, Bedtime (once a day), # 30 caps, 0 Refill(s), Pharmacy: [facility] #[id number], 1 caps Oral Bedtime (once a day) Start Date: 09/24/15 Status: Ordered [place] 5 mg-325 mg oral tablet 1 tabs, Oral, q6hr, as needed for pain, #40 Must last 30 days. MAY FILL ON 08/29., # 40 tabs, 0 Refill(s) Start Date: 09/21/15 Status: Ordered [place] 5 mg-325 mg oral tablet 1 [...] Title: Office Visit Note Author: Debi Ricketts ACTIVITY THERAPY TEACHER Date: 04/13/15 Assessment/Plan Cervical herniation Cervical spondylosis THORACIC OR LUMBOSACRAL NEURITIS OR RADICULITIS, UNSPECIFIED I discussed the patient's plan of care with Dr. Roth. He also reviewed the patient's most recent cervical MRI. According to this MRI the patient has been C5 6 and minimal sized central posterior disc bulge with annular tear.on exam she is primarily tender over her right C4 through 6 cervical facet joints. She reports significant relief after her recent right C4 through C6 medial branch blocks twice. Dr. Roth recommends proceeding with a right C4 through C6 radiofrequency ablation to provide the patient with relief of her mechanical neck pain symptoms for approximately 6-18 months. The patient does understand the rationale for the procedure as well as possible complications including bleeding , infection, allergic reaction, nerve irritation or damage, discussed with her that she may develop symptoms of neuritis if she develops the symptoms she may call back to the clinic. The patient also understands other remote possible complications including paraplegia, quadriplegia, , stroke, and seizure. The patient voiced understanding and wishes to proceed. The patient requests a local anesthetic. The patient will follow-up in 2 months following the radiofrequency ablation. We also discussed that her right arm radicular symptoms are beginning to return. In the future may consider repeating her right C5 6 transforaminal epidural steroid injectionIf the patient fails to improve or worsening symptoms, they will follow-up sooner. The patient voiced understanding and agrees to the above plan. Physical exam findings, history present illness, and recommendations are performed with and in agreement with Dr. Roth's findings.
--- OUTSIDE RECORDS SUMMARY | 2017-02-27 12:49 | XMS REPORT | Referral Summary ---
Author Organization Unknown Address Unknown Phone Unavailable Care Team Providers Care Polysomnography Technologist Name Role Phone Daniel Ibrahim Primary Care Physician [phone] Encounter [facility] [id number] Date(s): 12/04/14 - 12/04/14 [facility] [address] [place], [place] [address] Discharge Diagnosis: Cervical herniation Discharge Diagnosis: LUMBAGO Discharge Diagnosis: Acute cervical radiculopathy Discharge Diagnosis: Cervicalgia Discharge Diagnosis: THORACIC OR LUMBOSACRAL NEURITIS OR RADICULITIS, UNSPECIFIED Discharge Disposition: Home or Self Care Attending Physician: Sam Roth MD Admitting Physician: Sam Roth MD Referring Physician: Abimael Ibrahim MD Vital Signs Most recent to 1 oldest [Reference Range]: Blood Pressure 102/74 mmHg [90-140/60-90 mmHg] (12/04/14 1:54 PM) Problem List Condition Effective Dates Status [...] 2008 Active 2 Cervical Active herniation(Confirmed ) Sinus Resolved infection(Confirmed) Tension Active headache(Confirmed) THORACIC OR Active LUMBOSACRAL NEURITIS OR RADICULITIS, UNSPECIFIED(Confirme d) Tourette's Resolved syndrome(Confirmed)3 1NSVD 2NSVD 3Pre School Age Allergies, Adverse Reactions, Alerts Substance Reaction Severity Status Amitex [place] Active penicillin Rash Active SUMAtriptan HEADACHE Active traMADol SYMPTOMS INVOLVING RESPIRATORY SYSTEM AND Active OTHER CHEST SYMPTOMS itching Medications No data available for this section Results No data available for this section Immunizations Vaccine Date Refusal Reason hepatitis B adult vaccine 08/16/00 hepatitis B adult vaccine 05/16/99 hepatitis B adult vaccine 06/07/98 influenza virus vaccine, live 07/18/13 tetanus-diphth toxoids (Td) adult/adol 05/16/99 Procedures Procedure Date Related Diagnosis Body Site Sinus Social History Social History Type Response Smoking Status Former smoker; Type: Cigarettes Assessment and Plan Extracted from: Title: Office Visit Note Author: Sam Roth MD Date: 12/04/14 Assessment/Plan Acute cervical radiculopathy Cervical herniation Cervicalgia LUMBAGO Ordered: MRI Spine Lumbar w/o Contrast XR Spine Lumbosacral 2 or 3 Views THORACIC OR LUMBOSACRAL NEURITIS OR RADICULITIS, UNSPECIFIED RECOMMENDATIONS: I explained to the patient she has cervical and lumbar radiculopathy Due to the patients significant symptoms which have persisted , I would recommend acervical translaminar epidural steroid injection under fluoroscopy I explained the rationale of the procedure as well as the possible complications and the patient voiced understanding and wishes to proceed. Regarding her lumbar spine , I havewritten her for x-rays and MRI of lumbar spine and physical therapy for her lumbar spine All questions were answered. I shall see the patient back for reassessmentfollowing hercervical epidural steroid injection Referrals to Other Providers lumbar radiculopathy with back pain, cervical disc herniation cervical radiculopathy Referred by: Sam Roth MD
--- OUTSIDE RECORDS SUMMARY | 2017-02-27 12:49 | XMS REPORT | Referral Summary ---
Author Author [facility] Organization [facility] Address Unknown Phone Unavailable Care Team Providers Care Car Shifter Name Role Phone Daniel Ibrahim Primary Care Physician [phone] Encounter Date(s): 10/05/16 - 10/05/16 [facility], [address] [place] [id number] Discharge Diagnosis: Cervicogenic headache Discharge Diagnosis: Lumbar spinal stenosis Discharge Diagnosis: Cervical radiculopathy Discharge Diagnosis: DDD (degenerative disc disease), cervical Discharge Diagnosis: Migraine Discharge Diagnosis: Thoracic radiculopathy Discharge Disposition: 01-Home or Self Care Attending Physician: Abimael Ibrahim MD Admitting Physician: Abimael Ibrahim MD Vital Signs Most recent to 1 oldest [Reference Range]: Blood Pressure 130/90 mmHg [90-140/60-90 mmHg] (10/05/16 8:30 AM) Problem List Condition Effective Dates [...] 30 days Zoie Flanagan May fill on 09/27/16, # 30 tabs, 0 Refill(s) Start Date: 09/26/16 Status: Ordered busPIRone 7.5 mg oral tablet 7.5 mg 1 tabs, Oral, TID, (Was filled #90/0 on 07/21/16), # 90 tabs, 0 Refill(s) , Pharmacy: [facility] #[id number], 1 tabs Oral TID,Instr:(Was filled #90/0 on 07/21/16) Start Date: 08/28/16 Status: Ordered [place] 5 mg-325 mg oral tablet 1 tabs, Oral, q6hr, as needed for pain, #60 Must last 30 days. May fill ., # 60 tabs, 0 Refill(s) Start Date: 10/05/16 Status: Ordered predniSONE 20 mg oral tablet 40 mg 2 tabs, Oral, Daily, X 5 days, # 10 tabs, 0 Refill(s), Pharmacy: [facility] #[id number], 2 tabs Oral Daily,x5 days Start Date: 10/03/16 Stop Date: 10/08/16 Status: Ordered ProAir RespiClick 90 mcg/inh inhalation powder 2 puffs, Inhalation, q4hr, as needed, # 1 Each, 0 Refill(s), [id number] Start Date: 10/03/16 Status: Ordered Results No [...] Author: Abimael Ibrahim MD Date: Family Medicine Microdiskectomy Your spine is made up of bones called vertebrae. Oval-shaped disks filled with a thick liquid sit between the vertebrae. The disks function like cushions and keep the bones from rubbing together. However, an injury or normal aging can cause a disk to bulge out (herniated disk). The herniated disk can press on a nerve root, which is painful. The pain may be in the lower back, or it might shoot down a leg. There also may be tingling or numbness. One way to stop the pain is with a minimally invasive surgery called microdiskectomy. The part of the disk that sticks out from the spine is removed. Only a small surgical cut ( incision) is made in the back. Microdiskectomy is easier on the muscles and other tissues than traditional surgery. LET YOUR CAREGIVER KNOW ABOUT: Any allergies. The last time you had anything to eat or drink. This includes water, gum , and candy. All medicines you are taking, including herbs, eyedrops, over-the- counter medicines and creams. Blood thinners (anticoagulants), aspirin, or other drugs that could affect blood clotting. Any history of blood clots. Any history of bleeding or other blood problems. Use of steroids (by mouth or as creams). Previous problems with anesthesia. Family history of anesthetic complications. Possibility of , if this applies. Previous surgery. Smoking history. Any recent symptoms of colds or infections. Other health problems. RISKS AND COMPLICATIONS Leaking of spinal fluid. If this happens, you will need to stay in bed for a few days. Bleeding. Pain. Infection near the incision. Nerve damage. Blood clot in a leg. The clot can move to the lungs. This can be very serious. A herniated disk might come back (recur) and require additional surgery. BEFORE THE PROCEDURE A medical evaluation will be done. This may include: A physical exam. Blood tests. A test that checks heart rhythm (electrocardiography). Imaging tests such as a myelogram, chest X-ray, or MRI. Ask your caregiver about changing or stopping your regular medicines. You may need to stop using aspirin and nonsteroidal anti-inflammatory drugs (NSAIDs). This includes prescription drugs and idxn-ifk-vbzhpkg drugs. If possible, do this 10 to 14 days before the procedure or as directed. You may also need to stop taking vitamin E. If you take blood thinners, ask your caregiver when you should stop taking them. You may need a stool-softening medicine a few days before the procedure. Stop smoking 2 weeks before the procedure if you smoke. Smoking can slow down the healing process. The day before the procedure, eat only a light dinner. Do not eat or drink anything for at least 8 hours before the procedure. Ask if it is okay to take any needed medicines with a sip of water. You may talk with the person who will be in charge of the anesthetic medicine during the procedure. Arrive at least 1 to 2 hours before the procedure or as directed. PROCEDURE Small monitors will be put on your body. They are used to check your heart, blood pressure, and oxygen level. An intravenous (IV) access tube will be inserted in your vein. Medicine will be able to flow directly into your body through the IV. You might be given a medicine to help you relax (sedative). You will be given a medicine that makes you sleep (general anesthetic). Your back will be cleaned with a special solution to kill germs on the skin. Once you are asleep, the surgeon will make a small incision in the middle of your lower back. It is often just 1 to 2 inches long. Muscles in the back are not cut. They are moved to the side. Often, a small piece of bone needs to be removed. This creates a better "window" so the surgeon can see the herniated disk. The surgeon uses a microscope to check the disk and nerves near it. The part of the disk that is causing problems is removed. The area under the skin is closed with stitches. In time, these will go away on their own. The skin is closed with small stitches (sutures) or adolph. A small bandage (dressing) is put over the incision. The procedure usually takes about 1 hour. AFTER THE PROCEDURE You will stay in a recovery area until the anesthesia has worn off. Your blood pressure and pulse will be checked every so often. Some pain is normal after this surgery. You will probably be given pain medicine while in the recovery area. You may be able to go home the same day as the surgery. Once you get up and start walking, you will be able to go home. Sometimes, an overnight stay is needed. This information is not intended to replace advice given to you by your health care provider. Make sure you discuss any questions you have with your health care provider. Document Released: 09/19/2010 Document Revised: 12/23/2012 Document Reviewed: Elsevier Interactive Patient Education 2016 [employer] No follow up information was provided. Extracted from: Title: Office Visit Note Author: Abimael Ibrahim MD Date: 10/05/16 Assessment/Plan Cervical radiculopathy Ongoing. Seeing Dr. Buchanan. See above for details. IMPRESSION: Unremarkable MRI of the cervical spine. [1] Physical therapy already restarted for ongoing neck pain. Cervicogenic headache [place] refilled. DDD (degenerative disc disease), cervical Seeing Dr. Buchanan. Impression: There are mild disc protrusions at T5-6, T6-7 and T8-9 as described. The evaluation is otherwise unremarkable. [2] PROCEDURE: 1. Thoracic translaminar epidural steroid injection with fluoroscopy. 2. Utilisation of flouroscopy for needle placement. SURGEON: Sam Roth MD PREPROCEDURE PREPARATION: After being explained the risks and benefits of the procedure, the patient signed the standard informed consent form. The patient was placed in the prone position and standard ASA monitors applied. PROCEDURE DETAILS: The skin was prepped and draped in a sterile fashion and sterile technique was maintained throughout the procedure. The patient was laid prone and the thoracic T 78 processes were identified needle was advanced through this at a 50-60 degree angle to the axis of the spine and 15- 20 degree axis towards the midline into the epidural space, using loss of resistance technique. Correct needle placement was confirmed by fluoroscopy. Subsequently 2 mL of contrast was administered revealing additional epidural flow. After negative aspiration, 10 mL of solution was administered consisting of 1 mL of Triesence 40 mg/mL and 5 mL of 1% lidocaine diluted in 4ml of preservative free N saline. Subsequently the needle was removed. The patient tolerated the procedure well. POSTPROCEDURE EVALUATION: After a one hour recovery period, during which no complications were noted, and chest was clear to auscultation, the patient was discharged home. The patient has been given instructions to contact us or go to the nearest emergency room if they note any respiratory embarrassment while at home. TREATMENT PLAN: We will call the patient in 48 hours to assess the degree of pain relief and plan further interventions as needed. [3] Lumbar spinal stenosis This issue was reviewed, appears stable, and current therapy continued except as mentioned. Appropriate lab was reviewed from the most recent appropriate entry and lab was ordered if needed in the cpoe/nursing orders, and follow up recommended generally in 90 days and no later then six months. Impression: There is a small L4-L5 central posterior disc protrusion/herniation with focal annular tear. There is associated minimal impression upon the thecal sac anteriorly and mild to moderate bilateral neural foramen narrowing. [4] Migraine This issue was reviewed, appears stable, and current therapy continued except as mentioned. Appropriate lab was reviewed from the most recent appropriate entry and lab was ordered if needed in the cpoe/nursing orders, and follow up recommended generally in 90 days and no later then six months. Ongoing chronicissue. [place] refilled. Thoracic radiculopathy See above. The patient is a complex lady with an extensive medical history. Again over the years the patient has seen neurology for anxiety and migraines, has seen neurosurgery and pain management for chronic neck/back issues and has had numerous scans and epidurals with only temporary relief. She has been to physical therapy many times. She has been to psychiatry at [facility] for mental health issues related to chronic pain. She has been compliant with all medical recommendations and continues to have pain. She is currently seeing Dr. Buchanan and is pursuing surgical options for pain management. Please consider her request for additional services. Her most recent MRIs and procedures are listed in this office note above. 60 minutes were utilized in care and coordination for this patient. Greater then 50% of the time was used for counseling and/or coordination of the patients care. Copy to be sent to Dr. Buchanan.
--- OUTSIDE RECORDS SUMMARY | 2017-02-27 12:49 | XMS REPORT | Referral Summary ---
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 And Footwear Mechanic Name Role Phone Daniel Ibrahim Primary Care Physician [phone] Encounter VC Date(s): 07/20/16 - 07/20/16 [facility] [address] [place] [id number] Discharge Disposition: 01-Home or Self Care Attending Physician: Abimael Ibrahim MD Admitting Physician: Abimael Ibrahim MD Vital Signs No data available for [...] 30 tabs, 0 Refill (s) Start Date: 07/13/16 Status: Ordered [place] 5 mg-325 mg oral tablet 1 tabs, Oral, q6hr, as needed for pain, #60 Must last 30 days., # 60 tabs, 0 Refill(s) Start Date: 06/30/16 Status: Ordered Ocuflox 0.3% ophthalmic solution 2 drops, Eye-Right, TID, # 5 mL, 0 Refill(s), Pharmacy: [facility] #[id number] Start Date: 04/04/16 Stop Date: 04/09/16 Status: Ordered Wellbutrin XL 150 mg/24 hours oral tablet, extended release 150 mg 1 tabs, Oral, q24hr, # 14 Each, 0 Refill(s), Pharmacy: [facility] # [id number], 1 tabs Oral q24hr Start Date: 07/05/16 Status: Ordered Results No data available for this section Immunizations Vaccine Date Refusal Reason hepatitis B adult vaccine 08/16/00 hepatitis B adult vaccine 05/16/99 hepatitis B adult vaccine 06/07/98 influenza virus vaccine, inactivated 07/20/16 influenza virus vaccine, live 07/18/13 tetanus-diphth toxoids [...]
--- OUTSIDE RECORDS SUMMARY | 2017-02-27 12:49 | XMS REPORT | Referral Summary ---
Author Author [facility] Organization [facility] Address Unknown Phone Unavailable Care Team Providers Care Photovoltaic Technician Name Role Phone Daniel Ibrahim Primary Care Physician [phone] Encounter VC Date(s): 09/01/15 - 09/01/15 [facility] [address] [place], [place] [address] Discharge Diagnosis: Cervical spondylosis Discharge Diagnosis: Cervicalgia Discharge Diagnosis: Cervicogenic headache Discharge Diagnosis: DDD (degenerative disc disease), cervical Discharge Disposition: 01-Home or Self Care Attending Physician: Ashli Leija PA-C Admitting Physician: Ashli Leija PA-C Referring Physician: Abimael Ibrahim MD Vital Signs Most recent to 1 oldest [Reference Range]: Blood Pressure 134/82 mmHg [90-140/60-90 mmHg] (09/01/15 8:00 AM) Problem List Condition Effective Dates Status [...] AND Active OTHER CHEST SYMPTOMS itching Medications [place] 5 mg-325 mg oral tablet 1 tabs, [...] Visit Note Author: Ashli Leija PA-C Date: 09/01/15 Assessment/Plan Cervical spondylosis Cervicalgia Cervicogenic headache DDD [...] C4 to C6 radiofrequency ablation, with relief. She recently returned for a right C5 to 3 medial branch block twice for workup of radiofrequency ablation, with relief from both injections. Dr. Roth recommends proceeding with a right C2 3radiofrequency ablation. The patient does understand the rationale for the procedure as well as possible complications including bleeding, infection, allergic reaction, nerve irritation or damage. The patient also understands other remote possible complications including paraplegia, quadriplegia, , stroke, and seizure. The patient voiced understanding and wishes to proceed. The patient requests a local anesthetic. The patient will follow-up in 4 weeks following the injection. If the patient fails to improve or worsening symptoms, they will follow-up sooner. The patient voiced understanding and agrees to the above plan. The above was in discussion with Dr. Roth.
--- OUTSIDE RECORDS SUMMARY | 2017-02-27 12:49 | XMS REPORT | Referral Summary ---
Author Author [facility] Organization [facility] Address Unknown Phone Unavailable Care Team Providers Care Oncology Navigator Name Role Phone Daniel Ibrahim Primary Care Physician [phone] Encounter Date(s): 08/13/15 - 08/13/15 [facility], [address] [place] [id number] Discharge Diagnosis: Encounter for removal of subdermal contraceptive implant Discharge Disposition: 01-Home or Self Care Attending Physician: Azra Andres APRN Admitting Physician: Azra Andres APRN Vital Signs Most recent to 1 oldest [Reference Range]: Peripheral Pulse 82 bpm Rate [60-100 bpm] (08/13/15 8:58 AM) Blood Pressure 110/66 mmHg [90-140/60-90 mmHg] (08/13/15 8:58 AM) Problem List Condition Effective Dates Status [...] AND Active OTHER CHEST SYMPTOMS itching Medications [place] 5 mg-325 mg oral tablet 1 tabs, [...]
--- OUTSIDE RECORDS SUMMARY | 2017-02-27 12:50 | XMS REPORT | Referral Summary ---
Author Author [facility] Organization [facility] Address Unknown Phone Unavailable Care Team Providers Care Welcome Wagon Host/Hostess Name Role Phone Daniel Ibrahim Primary Care Physician [phone] Encounter Date(s): 02/01/16 - 02/01/16 [facility] [address] [place], [place] [address] Discharge Diagnosis: Lumbar disc herniation Discharge Diagnosis: DDD (degenerative disc disease), lumbar Discharge Diagnosis: Lumbar radiculopathy Discharge Diagnosis: Lumbar spinal stenosis Discharge Disposition: 01-Home or Self Care Attending Physician: Ashli Leija PA-C Admitting Physician: Ashli Leija PA-C Vital Signs Most recent to 1 oldest [Reference Range]: Temperature Oral 36.7 degC [35.8-37.3 degC] (02/01/16 9:49 AM) Blood Pressure 122/76 mmHg [90-140/60-90 mmHg] (02/01/16 9:49 AM) Problem List Condition Effective Dates Status [...] AND Active OTHER CHEST SYMPTOMS itching Medications [place] 5 mg-325 mg oral tablet 1 tabs, [...] Visit Note Author: Ashli Leija PA-C Date: 02/01/16 Assessment/Plan DDD (degenerative disc disease), lumbar Lumbar disc herniation Lumbar radiculopathy Lumbar spinal stenosis I discussed the patient's plan of care with Dr. Roth. I also reviewed the patient's most recent lumbar MRI. According to this MRI, the patient has disc herniation with annular tear at L4 5with minimal impression upon the thecal sac and mild to moderate bilateral foraminal narrowing. This coincides with the patient's low back pain and right-sided radiculopathy, which has progressed since her last office visit.We had previously tried to schedule for an L4 5 translaminar epiduralfor low back pain with early radiculopathy, although this was denied by her insurance. Dr. Roth recommends proceeding with an L4 [...] The above was in discussionwith Dr. Roth. She does not yet have an appointment with the surgeon regarding her neck, as we are still waitingto hear back from them.
--- OUTSIDE RECORDS SUMMARY | 2017-02-27 12:50 | XMS REPORT | Referral Summary ---
Author Author [facility] Organization [facility] Address Unknown Phone Unavailable Care Team Providers Care Etl Architect Name Role Phone Daniel Ibrahim Primary Care Physician [phone] Encounter Date(s): 07/16/15 - 07/16/15 [facility] [address] [place], [place] [address] Discharge Diagnosis: Cervicalgia Discharge Diagnosis: Cervicogenic headache [...] 0 Refill(s) Start Date: 01/29/15 Status: Ordered [place] 5 mg-325 mg oral tablet 1 tabs, Oral, q6hr, as needed for pain, # 40 tabs, 0 Refill(s) Start Date: 07/02/15 Status: Ordered Tylenol [place] 325 mg, Oral, prn, 0 Refill(s) Start Date: 06/15/15 Status: Ordered Results No data available for this section Immunizations Vaccine Date Refusal Reason hepatitis B adult vaccine 08/16/00 hepatitis B adult vaccine 05/16/99 hepatitis B adult vaccine 06/07/98 influenza virus vaccine, live 07/18/13 tetanus-diphth toxoids (Td) adult/adol 05/16/99 Procedures Procedure Date Related Diagnosis Body Site Right C5-6 Transforaminal 06/30/15 RIGHT C4-6 RADIO [...]
--- OUTSIDE RECORDS SUMMARY | 2017-02-27 12:50 | XMS REPORT | Referral Summary ---
Author Author [facility] Organization [facility] Address Unknown Phone Unavailable Care Team Providers Care Frame Fixer Name Role Phone Daniel Ibrahim Primary Care Physician [phone] Encounter Date(s): 07/10/16 - 07/10/16 [facility] [address] [place], [place] [address] Discharge Diagnosis: Thoracic radiculopathy Discharge Diagnosis: Thoracic disc herniation Discharge Disposition: 01-Home or Self Care Attending Physician: Sma Roth MD Admitting Physician: Sam Roth MD Referring Physician: Abimael Ibrahim MD Vital Signs Most recent to 1 oldest [Reference Range]: Apical Heart Rate 61 bpm [60-100 bpm] (07/10/16 9:12 AM) Respiratory Rate 20 br/min [14-20 br/min] (07/10/16 9:12 AM) Blood Pressure 131/95 mmHg [90-140/60-90 mmHg] (07/10/16 9:12 AM) SpO2 100 % (07/10/16 9:12 AM) Problem List Condition Effective Dates [...] Refill (s) Start Date: 06/21/16 Status: Ordered [place] 5 mg-325 mg oral tablet 1 tabs, Oral, q6hr, as needed for pain, #60 Must last 30 days., # 60 tabs, 0 Refill(s) Start Date: 06/30/16 Status: Ordered Ocuflox 0.3% ophthalmic solution 2 drops, Eye-Right, TID, # 5 mL, 0 Refill(s), Pharmacy: [facility] #[id number] Start Date: 04/04/16 Stop Date: 04/09/16 Status: Ordered Wellbutrin XL 150 mg/24 hours oral tablet, extended release 150 mg 1 tabs, Oral, q24hr, # 14 Each, 0 Refill(s), Pharmacy: [facility] # [id number], 1 tabs Oral q24hr Start Date: 07/05/16 Status: Ordered Results No data available for this section Immunizations Vaccine Date Refusal Reason hepatitis B adult vaccine 08/16/00 hepatitis B adult vaccine 05/16/99 hepatitis B adult vaccine 06/07/98 influenza virus vaccine, live 07/18/13 tetanus-diphth toxoids (Td) adult/adol 05/16/99 Procedures Procedure Date Related Diagnosis Body Site Injection(s), of diagnostic or therapeutic 07/10/16 substance(s) (including anesthetic, antispasmodic, opioid, steroid, other solution), not including neurolytic substances, including needle or catheter placement, includes contrast for localization when performed, T7-8 Translaminar 07/10/16 BILATERAL L4-5 TRANSFORAMINAL 05/08/16 [...] Extracted from: Title: Ambulatory Patient Education Author: Yeni Drake RN Date: Procedures Epidural Steroid Injection An [...] including vitamins, herbs, eye drops, creams, and dvbh-avh-winjkhd medicines such as aspirin. Previous problems you [...] 06/03/2014 Document Reviewed: [employer] Patient Information 2016 [employer]. No follow up information was provided.
--- OUTSIDE RECORDS SUMMARY | 2017-02-27 12:50 | XMS REPORT | Referral Summary ---
Author Author [facility] Organization [facility] Address Unknown Phone Unavailable Care Team Providers Care Photonics Engineering Technologist Name Role Phone Daniel Ibrahim Primary Care Physician [phone] Encounter VC Date(s): 04/08/15 - 04/08/15 [facility] [address], [place] [address] Discharge Diagnosis: Cervical pain Discharge Diagnosis: Cervical spondylosis Discharge Disposition: 01-Home or Self Care Attending Physician: Sam Roth MD Admitting Physician: Sam Roth MD Referring Physician: Abimael Ibrahim MD Vital Signs Most recent to 1 oldest [Reference Range]: Apical Heart Rate 72 bpm [60-100 bpm] (04/08/15 10:53 AM) Respiratory Rate 16 br/min [14-20 br/min] (04/08/15 10:53 AM) Blood Pressure 124/72 mmHg [90-140/60-90 mmHg] (04/08/15 10:53 AM) SpO2 100 % (04/08/15 10:53 AM) Problem List Condition Effective Dates Status [...] spasm, # 60 tabs, 0 Refill(s), Pharmacy: [facility] #[id number], 1 tabs Oral TID,PRN:as needed for spasm Start Date: 09/24/15 Status: Ordered Cymbalta 30 mg oral delayed release capsule 30 mg 1 caps, Oral, Bedtime (once a day), # 30 caps, 0 Refill(s), Pharmacy: [facility] #[id number], 1 caps Oral Bedtime (once a day) Start Date: 09/24/15 Status: Ordered [place] 5 mg-325 mg oral tablet 1 tabs, Oral, q6hr, as needed for pain, #40 Must last 30 days. MAY FILL ON 08/29., # 40 tabs, 0 Refill(s) Start Date: 09/21/15 Status: Ordered [place] 5 mg-325 mg oral tablet 1 tabs, [...] C5-6 Transforaminal 06/30/15 RIGHT C4-6 RADIO 04/28/15 Injection(s), diagnostic or therapeutic 04/08/15 agent, paravertebral facet (zygapophyseal) joint (or nerves innervating that joint) with image guidance (fluoroscopy or CT), cervical or thoracic; second level (List separately in addition to code for primary proced Injection(s), diagnostic or therapeutic 04/08/15 agent, paravertebral facet (zygapophyseal) joint (or nerves innervating that joint) with image guidance (fluoroscopy or CT), cervical or thoracic; single level Right C4-6 Medial Branch Block with 04/08/15 Differential Right C4-6 Medial Branch Block 04/01/15 Right C5-6 Transforaminal 01/19/15 Cervical Translaminar 12/07/14 Sinus Social History Social History Type Response Smoking Status Former smoker; Type: Cigarettes Assessment and Plan No data available for this section
--- OUTSIDE RECORDS SUMMARY | 2017-02-27 12:50 | XMS REPORT | Referral Summary ---
Author Author [facility] Organization [facility] Address Unknown Phone Unavailable Care Team Providers Care Recreational Aide Name Role Phone Daniel Ibrahim Primary Care Physician [phone] Encounter Date(s): 07/20/15 - 07/20/15 [facility] [address] [place], [place] [address] Discharge Diagnosis: Cervicogenic headache Discharge Diagnosis: Cervical [...] 0 Refill(s) Start Date: 01/29/15 Status: Ordered [place] 5 mg-325 mg oral tablet 1 tabs, [...] Diagnosis Body Site Injection(s), diagnostic or therapeutic 07/20/15 agent, paravertebral [...]
--- OUTSIDE RECORDS SUMMARY | 2017-02-27 12:50 | XMS REPORT | Referral Summary ---
Author Author [facility] Organization [facility] Address Unknown Phone Unavailable Care Team Providers Care Natural Gas Treating Unit Operator Name Role Phone Daniel Ibrahim Primary Care Physician [phone] Encounter VC Date(s): 12/22/15 - 12/22/15 [facility] [address] [place], [place] [address] Discharge Diagnosis: Cervical herniation Discharge Diagnosis: Cervical radiculopathy Discharge Disposition: 01-Home or Self Care Attending Physician: Sam Roth MD Admitting Physician: Sam Roth MD Referring Physician: Sam Roth MD Vital Signs Most recent to 1 oldest [Reference Range]: Peripheral Pulse 69 bpm Rate [60-100 bpm] (12/22/15 1:20 PM) Respiratory Rate 16 br/min [14-20 br/min] (12/22/15 1:20 PM) Blood Pressure 127/87 mmHg [90-140/60-90 mmHg] (12/22/15 1:20 PM) SpO2 100 % (12/22/15 1:20 PM) Problem List Condition Effective Dates Status [...] AND Active OTHER CHEST SYMPTOMS itching Medications [place] 5 mg-325 mg oral tablet 1 tabs, [...] Diagnosis Body Site Injection(s), anesthetic agent and/or 12/22/15 steroid, transforaminal epidural, with imaging guidance (fluoroscopy or CT); cervical or thoracic, single level Right C5-6 Transforaminal 12/22/15 Right C5-6 Transforaminal [...]
--- OUTSIDE RECORDS SUMMARY | 2017-02-27 12:50 | XMS REPORT | Referral Summary ---
Author Author [facility] Organization [facility] Address Unknown Phone Unavailable Care Team Providers Care Monument Setter Name Role Phone Daniel Ibrahim Primary Care Physician [phone] Encounter Date(s): 06/21/16 - 06/21/16 [facility], [address] [place] [address] Discharge Diagnosis: Generalized anxiety disorder Discharge Diagnosis: Contraception management Discharge Disposition: 01-Home or Self Care Attending Physician: Chery Lloyd PA-C Admitting Physician: Chery Lloyd PA-C Vital Signs Most recent to 1 oldest [Reference Range]: Peripheral Pulse 60 bpm Rate [60-100 bpm] (06/21/16 2:37 PM) Respiratory Rate 18 br/min [14-20 br/min] (06/21/16 2:37 PM) Blood Pressure 106/68 mmHg [90-140/60-90 mmHg] (06/21/16 2:37 PM) Problem List Condition Effective Dates Status [...] TID, # 90 tabs, 0 Refill(s), Pharmacy: [facility] # [id number], 1 tabs Oral TID Start Date: 06/21/16 Status: Ordered [place] 5 mg-325 mg oral tablet 1 tabs, Oral, q6hr, as needed for pain, #60 Must last 30 days., # 60 tabs, 0 Refill(s) Start Date: 06/01/16 Status: Ordered Ocuflox 0.3% ophthalmic solution 2 drops, Eye-Right, TID, # 5 mL, 0 Refill(s), Pharmacy: [facility] #[id number] Start Date: 04/04/16 Stop Date: 04/09/16 Status: [...] Education Author: Chery Lloyd PA-C Date : 06/21/16 Behavioral Health Panic Attacks Panic attacks are sudden, short-livedsurges of severe anxiety, fear, or discomfort. They may occur for no reason when you are relaxed, when you are anxious, or when you are sleeping. Panic attacks may occur for a number of reasons: Healthy people occasionally have panic attacks in extreme, life- threatening situations, such as war or natural disasters. Normal anxiety is a protective mechanism of the body that helps us react to danger (fight or flight response). Panic attacks are often seen with anxiety disorders, such as panic disorder, social anxiety disorder, generalized anxiety disorder, and phobias. Anxiety disorders cause excessive or uncontrollable anxiety. They may interfere with your relationships or other life activities. Panic attacks are sometimes seen with other mental illnesses, such as depression and posttraumatic stress disorder. Certain medical conditions, prescription medicines, and drugs of abuse can cause panic attacks. SYMPTOMS Panic attacks start suddenly, peak within 20 minutes, and are accompanied by four or more of the following symptoms: Pounding heart or fast heart rate (palpitations). Sweating. Trembling or shaking. Shortness of breath or feeling smothered. Feeling choked. Chest pain or discomfort. Nausea or strange feeling in your stomach. Dizziness, light-headedness, or feeling like you will faint. Chills or hot flushes. Numbness or tingling in your lips or hands and feet. Feeling that things are not real or feeling that you are not yourself. Fear of losing control or going crazy. Fear of dying. Some of these symptoms can mimic serious medical conditions. For example, you may think you are having a heart attack. Although panic attacks can be very scary, they are not life threatening. DIAGNOSIS Panic attacks are diagnosed through an assessment by your health care provider. Your health care provider will ask questions about your symptoms, such as where and when they occurred. Your health care provider will also ask about your medical history and use of alcohol and drugs, including prescription medicines. Your health care provider may order blood tests or other studies to rule out a serious medical condition. Your health care provider may refer you to a mental health professional for further evaluation. TREATMENT Most healthy people who have one or two panic attacks in an extreme, life -threatening situation will not require treatment. The treatment for panic attacks associated with anxiety disorders or other mental illness typically involves counseling with a mental health professional, medicine, or a combination of both. Your health care provider will help determine what treatment is best for you. Panic attacks due to physical illness usually go away with treatment of the illness. If prescription medicine is causing panic attacks, talk with your health care provider about stopping the medicine, decreasing the dose, or substituting another medicine. Panic attacks due to alcohol or drug abuse go away with abstinence. Some adults need professional help in order to stop drinking or using drugs. HOME CARE INSTRUCTIONS Take all medicines as directed by your health care provider. Schedule and attend follow-up visits as directed by your health care provider. It is important to keep all your appointments. SEEK MEDICAL CARE IF: You are not able to take your medicines as prescribed. Your symptoms do not improve or get worse. SEEK IMMEDIATE MEDICAL CARE IF: You experience panic attack symptoms that are different than your usual symptoms. You have serious thoughts about hurting yourself or others. You are taking medicine for panic attacks and have a serious side effect. MAKE SURE YOU: Understand these instructions. Will watch your condition. Will get help right away if you are not doing well or get worse. This information is not intended to replace advice given to you by your health care provider. Make sure you discuss any questions you have with your health care provider. Document Released: 10/01/2006 Document Revised: 10/06/2014 Document Reviewed: [facility] Patient Information 2016 [facility]. [facility] Medicine Generalized Anxiety Disorder Generalized anxiety disorder (RICARDO) is a mental disorder. It interferes with life functions, including relationships, work, and school. RICARDO is different from normal anxiety, which everyone experiences at some point in their lives in response to specific life events and activities. Normal anxiety actually helps us prepare for and get through these life events and activities. Normal anxiety goes away after the event or activity is over. RICARDO causes anxiety that is not necessarily related to specific events or activities. It also causes excess anxiety in proportion to specific events or activities. The anxiety associated with RICARDO is also difficult to control. RICARDO can vary from mild to severe. People with severe RICARDO can have intense waves of anxiety with physical symptoms (panic attacks). SYMPTOMS The anxiety and worry associated with RICARDO are difficult to control. This anxiety and worry are related to many life events and activities and also occur more days than not for 6 months or longer. People with RICARDO also have three or more of the following symptoms (one or more in children): Restlessness. Fatigue. Difficulty concentrating. Irritability. Muscle tension. Difficulty sleeping or unsatisfying sleep. DIAGNOSIS RICARDO is diagnosed through an assessment by your health care provider. Your health care provider will ask you questions aboutyour mood,physical symptoms , and events in your life. Your health care provider may ask you about your medical history and use of alcohol or drugs, including prescription medicines. Your health care provider may also do a physical exam and blood tests. Certain medical conditions and the use of certain substances can cause symptoms similar to those associated with RICARDO. Your health care provider may refer you to a mental health specialist for further evaluation. TREATMENT The following therapies are usually used to treat RICARDO: Medication. Antidepressant medication usually is prescribed for long- term daily control. Antianxiety medicines may be added in severe cases, especially when panic attacks occur. Talk therapy (psychotherapy). Certain types of talk therapy can be helpful in treating RICARDO by providing support, education, and guidance. A form of talk therapy called cognitive behavioral therapy can teach you healthy ways to think about and react to daily life events and activities. Stress managementtechniques. These include yoga, meditation, and exercise and can be very helpful when they are practiced regularly. A mental health specialist can help determine which treatment is best for you. Some people see improvement with one therapy. However, other people require a combination of therapies. This information is not intended to replace advice given to you by your health care provider. Make sure you discuss any questions you have with your health care provider. Document Released: 01/26/2014 Document Revised: 10/22/2015 Document Reviewed: [employer] Patient Information 2016 [place]. No follow up information was provided. Extracted from: Title: Office Visit Note- RICARDO Author: Chery Lloyd PA-C Date: Assessment/Plan Contraception management D/w pt that if she wants to have the Nexplanon out, she can make an appt with Dr. Ferreira. If she wants to change to a different control, she may make another appt to discuss. She wants to want a while longer to see if periods regulate. Ordered: Office Visit Level 4 Est 43854 Generalized anxiety disorder Spent at least 25 minutes with pt in counseling. I d/w her several options to help with her anxiety. She does want to start on medication today, but she is adamant that she does not want an "anti-depressant " because apparently shethinks itwill make her depressed. She also doesn't want something that will cause her togain weight,or anything that makes her drowsy. I discussed just a couple options for her. I think Buspar is a good option for her.She thinks she tried this in the past, but doesn't remember if it helped. I also recommended Wellbutrin, but she doesn't want to try that at this time. She also specifically requests something to take on prn basis to help with immediate "panic attack". D/w her that we can try some Ativan for a short time while the Buspar is starting to work. I do NOT plan on having her on thislong term. She can try 1 tab first- if too drowsy, can try 1/2 tab or if not helping, could try 2 tabs. I want her to follow up in clinic in2 weeks or sooner if any issues. Pt voiced understanding and agreed with plan. Ordered: Office Visit Level 4 Est 03954 Orders: busPIRone, 7.5 mg 1 tabs, Oral, TID, # 90 tabs, 0 Refill(s), Pharmacy : [facility] #[id number], 1 tabs Oral TID LORazepam, 0.5 mg 1 tabs, Oral, TID, as needed for anxiety, Zoie Flanagan, # 30 tabs, 0 Refill(s)
--- OUTSIDE RECORDS SUMMARY | 2017-02-27 12:50 | XMS REPORT | Continuity of Care Document ---
Author Author [facility] Organization [facility] Address Unknown Phone Unavailable Allergies Active Description Code Type Severity Reaction Onset Reported/Identified Relationship to Patient Clinical Status Yes IMITREX 38158 3 Unknown 11/30/2016 Yes PENICILLIN 65105 2 Skin Rashes/Hives 11/30/2016 Medications Medication Packaging Start Date Stop Date Route Dosage Sig HYDROcodone/ACETAMINOPHEN 5-325 MG TABLET TAB 01/30/20172017 PO TIDPRN LIDOCAINE 1% MPF INJ (5ML) VL 02/02/2017 02/03/2017 ID ONCE LACTATED RINGERS 1000 ML IV SOLN BAG 02/02/2017 02/02/2017 IV ONCE LACTATED RINGERS 1000 ML IV SOLN BAG 02/02/2017 02/02/2018 IV ASDIR LIDOCAINE 1% MPF INJ (5ML) VL 02/02/2017 02/02/2018 ID ASDIR MIDAZOLAM 2MG/2ML INJ VL 02/02/2017 02/02/2018 IV ASDIR fentaNYL 100 MCG/2ML INJ AMP 02/02/2017 02/02/2018 IV ASDIR LACTATED RINGERS 1000 ML IV SOLN BAG 02/02/2017 02/02/2017 IV ONCE Problems Date Dx Coded Attending Type Code Diagnosis Diagnosed By 11/30/2016 DAISY CURRIE DF M25.78 Osteophyte, vertebrae 11/30/2016 DAISY CURRIE DF M54.2 Cervicalgia 01/30/2017 DAISY CURRIE DF M48.02 Spinal stenosis, cervical region 01/30/2017 DAISY CURRIE DF M54.12 Radiculopathy, cervical region Procedures Code Description Performed By Performed On [id number] Fluoroscopy of Spinal Cord using Low Osm DAISY CURRIE 01/30/2017 Results Encounters ACCT No. Visit Date/Time Discharge Status Pt. Type Provider Facility Loc./Unit Complaint [id number] 11/26/2013 13:43:00 11/26/2013 23 :59:59 [facility] Outpatient [id number] 11/04/2013 15:40:00 11/04/2013 23 :59:59 [facility] Out[facility] [id number] 10/22/2013 13:17:00 10/22/2013 23 :59:59 [facility] Outpatient
--- OUTSIDE RECORDS SUMMARY | 2017-02-27 12:50 | XMS REPORT | Referral Summary ---
Author Organization Unknown Address Unknown Phone Unavailable Care Team Providers Care Collections Curator Name Role Phone Daniel Ibrahim Primary Care Physician [phone] Encounter VC Date(s): 01/29/15 - 01/29/15 [facility] [address] [place] [id number]- Discharge Diagnosis: Acute cervical radiculopathy Discharge Diagnosis: Chronic pain Discharge Diagnosis: Acute URI Discharge Diagnosis: Lumbar disc herniation Discharge Disposition: Home or Self Care Attending Physician: Abimael Ibrahim MD Admitting Physician: Abimael Ibrahim MD Vital Signs Most recent to 1 oldest [Reference Range]: Blood Pressure 120/84 mmHg [90-140/60-90 mmHg] (01/29/15 12:59 PM) Problem List Condition Effective Dates Status [...] # 30 caps , 0 Refill(s), Pharmacy: [facility] #[id number], 1 caps Oral Daily,Instr: Start this script after finishing the 30mg caps. Special Instructions: Start this script after finishing the 30mg caps. Start Date: 01/18/15 Status: Suspended ibuprofen 200 mg oral capsule 2 caps, Oral, QID, as needed for fever, # 120 caps, 0 Refill(s) Start Date: 01/29/15 Status: Ordered Lyrica 150 mg, Oral, Daily, 0 Refill(s) Start Date: 01/29/15 Status: Ordered [place] 5 mg-325 mg oral tablet 1 tabs, Oral, q6hr, as needed for pain, # 40 tabs, 0 Refill(s) Start Date: 01/29/15 Status: Ordered predniSONE 20 mg oral tablet 1 tabs, Oral, Daily, X 5 days, # 5 tabs, 0 Refill(s), Pharmacy: [facility] #[id number], 1 tabs Oral Daily,x5 days Start Date: 01/29/15 Stop Date: 02/03/15 Status: Ordered Zithromax Z-Marky 250 mg oral tablet 1 packets, Oral, Daily, as directed on package labeling, X 5 days, # 6 tabs, 0 Refill(s), Pharmacy: [facility] #[id number], 1 packets Oral Daily,x5 days, Instr:as directed [...] Patient Education Author: Abimael Ibrahim MD Date: Anesthesiology Cervical Radiculopathy Cervical radiculopathy happens when a nerve in the neck is pinched or bruised by a slipped (herniated ) disk or by arthritic changes in the bones of the cervical spine. This can occur due to an injury or as part of the normal aging process. Pressure on the cervical nerves can cause pain or numbness that runs from your neck all the way down into your arm and fingers. CAUSES There are many possible causes, including: Injury. Muscle tightness in the neck from overuse. Swollen, painful joints (arthritis ). Breakdown or degeneration in the bones and joints of the spine ( spondylosis ) due to aging. Bone spurs that may develop near the cervical nerves. SYMPTOMS Symptoms include pain, weakness, or numbness in the affected arm and hand. Pain can be severe or irritating. Symptoms may be worse when extending or turning the neck. DIAGNOSIS Your caregiver will ask about your symptoms and do a physical exam. He or she may test your strength and reflexes. X-rays, CT scans, and MRI scans may be needed in cases of injury or if the symptoms do not go away after a period of time. Electromyography (EMG) or nerve conduction testing may be done to study how your nerves and muscles are working. TREATMENT Your caregiver may recommend certain exercises to help relieve your symptoms. Cervical radiculopathy can, and often does, get better with time and treatment. If your problems continue, treatment options may include: Wearing a soft collar for short periods of time. Physical therapy to strengthen the neck muscles. Medicines, such as nonsteroidal anti-inflammatory drugs (NSAIDs), oral corticosteroids, or spinal injections. Surgery. Different types of surgery may be done depending on the cause of your problems. HOME CARE INSTRUCTIONS Put ice on the affected area. Put ice in a plastic bag. Place a towel between your skin and the bag. Leave the ice on for 15-20 minutes, 03-04 times a day or as directed by your caregiver. If ice does not help, you can try using heat. Take a warm shower or bath, or use a hot water bottle as directed by your caregiver. You may try a gentle neck and shoulder massage. Use a flat pillow when you sleep. Only take bbbw-nke-albobjg or prescription medicines for pain, discomfort, or fever as directed by your caregiver. If physical therapy was prescribed, follow your caregiver's directions. If a soft collar was prescribed, use it as directed. SEEK IMMEDIATE MEDICAL CARE IF: Your pain gets much worse and cannot be controlled with medicines. You have weakness or numbness in your hand, arm, face, or leg. You have a high fever or a stiff, rigid neck. You lose bowel or bladder control (incontinence ). You have trouble with walking, balance, or speaking. MAKE SURE YOU: Understand these instructions. Will watch your condition. Will get help right away if you are not doing well or get worse. Document Released: 06/26/2002 Document Revised: 12/23/2012 Document Reviewed: [facility] Patient Information 2014 [employer] [facility]. No follow up information was provided. Extracted from: Title: Office Visit Note Author: Abimael Ibrahim MD Date: 01/29/15 Assessment/Plan Acute cervical radiculopathy Narcotic contract reviewed and signed. [place] 5 number forty everythirty days. Continue appt with on 02/08. A work/school note was offered and deferred by the patient. Acute URI Zpack and prednisone 20mg po daily for five days was given. Chronic pain See above. Lumbar disc herniation This issue is stable and appropriate refills, lab, and f/u have been discussed. Orders: HYDROcodone-acetaminophen, 1 tabs, Oral, q6hr, as needed for pain, # 40 tabs, 0 Refill(s)
--- OUTSIDE RECORDS SUMMARY | 2017-02-27 12:50 | XMS REPORT | Referral Summary ---
Author Author [facility] Organization [facility] Address Unknown Phone Unavailable Care Team Providers Care International Trade Teacher Name Role Phone Daniel Ibrahim Primary Care Physician [phone] Encounter Date(s): 07/31/16 - 07/31/16 [facility] [address] [place] [id number]- Discharge Diagnosis: Viral URI Discharge Diagnosis: Generalized anxiety disorder Discharge Disposition: 01-Home or Self Care Attending Physician: Chery Lloyd PA-C Admitting Physician: Chery Lloyd PA-C Vital Signs Most recent to 1 oldest [Reference Range]: Peripheral Pulse 72 bpm Rate [60-100 bpm] (07/31/16 1:05 PM) Respiratory Rate 16 br/min [14-20 br/min] (07/31/16 1:05 PM) Blood Pressure 115/82 mmHg [90-140/60-90 mmHg] (07/31/16 1:05 PM) Problem List Condition Effective Dates Status [...] Refill (s) Start Date: 07/13/16 Status: Ordered busPIRone 7.5 mg oral tablet 7.5 mg 1 tabs, Oral, TID, (Was filled #90/0 on 06/21/16), # 90 tabs, 0 Refill(s), other reason (Rx), 1 tabs Oral TID Start Date: 07/31/16 Status: Ordered [place] 5 mg-325 mg oral tablet 1 tabs, Oral, q6hr, as needed for pain, #60 Must last 30 days., # 60 tabs, 0 Refill(s) Start Date: 07/28/16 Status: Ordered Ocuflox 0.3% ophthalmic solution 2 drops, Eye-Right, TID, # 5 mL, 0 Refill(s), Pharmacy: [facility] #[id number] Start Date: 04/04/16 Stop Date: 04/09/16 Status: [...] Note- URI Author: Chery Lloyd PA-C Date: Assessment/Plan Generalized anxiety disorder She stopped taking the Wellbutrin. She wants to stay on Buspar and Ativan for now. She denies needing refills today. Ordered: Office Visit Level 3 Est 58238 Viral URI D/w pt that it is too early to tell if this is d/t viral or bacterial infection.D/w her thatabx don't help prevent illness. I recommended that she rest, push fluids, try Zinc, Vitamin C, and Echinacea. If her sx are continuing past 7-10 days, she may call, and Ican send out an abx. She is very anxious that she is notgoing to be able to have her surgery because of this illness. Ordered: Office Visit Level 3 Est 45347
--- OUTSIDE RECORDS SUMMARY | 2017-02-27 12:50 | XMS REPORT | Referral Summary ---
Author Author [facility] Organization [facility] Address Unknown Phone Unavailable Care Team Providers Care Concrete Precast Moulder Name Role Phone Daniel Ibrahim Primary Care Physician [phone] Encounter Date(s): 08/13/15 - 08/13/15 [facility], [address] [place] [id number]- Discharge Diagnosis: Encounter for removal of subdermal [...] AND Active OTHER CHEST SYMPTOMS itching Medications [place] 5 mg-325 mg oral tablet 1 tabs, [...]
--- OUTSIDE RECORDS SUMMARY | 2017-02-27 12:51 | XMS REPORT | Referral Summary ---
Author Author [facility] Organization [facility] Address Unknown Phone Unavailable Care Team Providers Care Cover Remover Name Role Phone Daniel Ibrahim Primary Care Physician [phone] Encounter Date(s): 11/30/15 - 11/30/15 [facility] [address] [place], [place] [address] Discharge Diagnosis: Cervical radiculopathy Discharge Diagnosis: DDD (degenerative disc disease), cervical Discharge Diagnosis: Cervical spondylosis Discharge Disposition: 01-Home or Self Care Attending Physician: Ashli Leija PA-C Admitting Physician: Ashli Leija PA-C Referring Physician: Abimael Ibrahim MD Vital Signs Most recent to 1 oldest [Reference Range]: Temperature Tympanic 36.5 degC [36.6-38.1 degC] *LOW* (11/30/15 10:53 AM) Blood Pressure 126/84 mmHg [90-140/60-90 mmHg] (11/30/15 10:53 AM) Problem List Condition Effective Dates [...] AND Active OTHER CHEST SYMPTOMS itching Medications [place] 5 mg-325 mg oral tablet 1 tabs, [...] Visit Note Author: Ashli Leija PA-C Date: 11/30/15 Assessment/Plan Cervical radiculopathy Cervical spondylosis DDD (degenerative disc disease), cervical I discussed this patient's plan of care with Dr. Roth. I also reviewed the patient's most recent cervical MRI. According to this MRI the patient has disc bulging with annular tear at C5 6. She also has an area of abnormal soft tissue inflammation in the midline posterior subcutaneous soft tissue seen at the C7- T1 level, without lesion. All other levels are unremarkable . She last had a right C2 3 radiofrequency ablation in August 2015 as well as a right C5 6 transforaminal epidural on October 27, 2015. She does have persisting radicular symptoms in her right upper extremity. Dr. Roth recommends obtaining an EMG nerve conduction study of her right upper extremity. She will follow-up based on the results of her EMG study. The patient voiced understanding and agrees to the above plans. The above was in discussion with Dr. Roth.
--- OUTSIDE RECORDS SUMMARY | 2017-02-27 12:51 | XMS REPORT | Referral Summary ---
Author Author [facility] Organization [facility] Address Unknown Phone Unavailable Care Team Providers Care Correctional Guard Name Role Phone Daniel Ibrahim Primary Care Physician [phone] Encounter [facility] Date(s): 11/02/16 - 11/02/16 [facility] [address] [place] [id number] [place] Discharge Diagnosis: Lumbar disc herniation Discharge Diagnosis: Cervical radiculopathy Discharge Disposition: 01-Home or Self Care Attending Physician: Abimael Ibrahim MD Admitting Physician: Abimael Ibrahim MD Vital Signs Most recent to 1 oldest [Reference Range]: Blood Pressure 120/80 mmHg [90-140/60-90 mmHg] (11/02/16 9:16 AM) Problem List Condition Effective Dates Status [...] # 90 tabs, 0 Refill(s) , Pharmacy: [facility] #[id number], 1 tabs Oral TID,Instr:(Was filled #90/0 on 07/21/16) Start Date: 08/28/16 Status: Ordered [place] 5 mg-325 mg oral tablet 1 tabs, Oral, q6hr, as needed for pain, #60 Must last 30 days. May fill 2016, # 60 tabs, 0 Refill(s) Start Date: 11/02/16 Status: Ordered ProAir RespiClick 90 mcg/inh inhalation powder 2 puffs, Inhalation, q4hr, as needed, # 1 Each, 0 Refill(s), Pharmacy: [facility] #[id number] Start Date: 10/03/16 Status: Ordered Results No data available for this section Immunizations Given and Recorded Vaccine Date Status Refusal Reason hepatitis B adult vaccine 11/2/00 Recorded hepatitis B adult vaccine 05/16/99 Recorded [...] Visit Note Author: Abimael Ibrahim MD Date: 11/02/16 Assessment/Plan Cervical radiculopathy The patient is here for an ongoing issue. They have been evaluated and treated in the past. Any past testing, xray's, lab, or consults have been reviewed if available. The patient may have been seen by an outside physician and/or IC too. Seeing Dr. Buchanan. His note is reviewed from 07/06/2016. IMPRESSION: Unremarkable MRI of the cervical spine. [1] 30 minutes were utilized in care and coordination for this patient. Greater then 50% of the time was used for counseling and/or coordination of the patients care. MRI will be ordered as requested but will likely need precerted. I talked with the community service officer as well. It would be helpful to have documentation of the need from Dr. Buchanan. A work/school note was offered and deferred by the patient. Lumbar disc herniation This issue was reviewed, appears stable, and current therapy continued except as mentioned. Appropriate lab was reviewed from the most recent appropriate entry and lab was ordered if needed in the cpoe/nursing orders, and follow up recommended generally in 90 days and no later then six months.
--- OUTSIDE RECORDS SUMMARY | 2017-02-27 12:51 | XMS REPORT | Referral Summary ---
Author Author [facility] Organization [facility] Address Unknown Phone Unavailable Care Team Providers Care Breaker Machine Tender Name Role Phone Daniel Ibrahim Primary Care Physician [phone] Encounter Date(s): 02/26/15 - 02/26/15 [facility] [address] [place], [place] [address] Discharge Diagnosis: Acute cervical radiculopathy Discharge Diagnosis: [...] AND Active OTHER CHEST SYMPTOMS itching Medications [place] 5 mg-325 mg oral tablet 1 tabs, [...]
--- OUTSIDE RECORDS SUMMARY | 2017-02-27 12:51 | XMS REPORT | Referral Summary ---
Author Author [facility] Organization [facility] Address Unknown Phone Unavailable Care Team Providers Care Aerospace Physiological Technician Name Role Phone Daniel Ibrahim Primary Care Physician [phone] Encounter Date(s): 12/13/15 - 12/13/15 [facility] [address] [place], [place] [address] Discharge Diagnosis: Cervical radiculopathy Discharge Disposition: 01-Home or Self Care Attending Physician: Sam Roth MD Admitting Physician: Sam Roth MD Referring Physician: Abimael Ibrahim MD Vital Signs Most recent to 1 oldest [Reference Range]: Blood Pressure 123/107 mmHg [90-140/60-90 mmHg] (12/13/15 3:51 PM) Problem List Condition Effective Dates Status [...] AND Active OTHER CHEST SYMPTOMS itching Medications [place] 5 mg-325 mg oral tablet 1 tabs, [...]
--- OUTSIDE RECORDS SUMMARY | 2017-02-27 12:51 | XMS REPORT | Referral Summary ---
Author Author [facility] Organization [facility] Address Unknown Phone Unavailable Care Team Providers Care Cloth Covered Helmet Puller Name Role Phone Daniel Ibrahim Primary Care Physician [phone] Encounter [facility] Date(s): 09/24/15 - 09/24/15 [facility] [address] [place] [address]- Discharge Disposition: 01-Home or Self Care Attending Physician: Abimael Ibrahim MD Admitting Physician: Abimael Ibrahim MD Vital Signs Most recent to 1 oldest [Reference Range]: Blood Pressure 120/60 mmHg [90-140/60-90 mmHg] (09/24/15 3:41 PM) Problem List Condition Effective Dates Status [...] spasm, # 60 tabs, 0 Refill(s), Pharmacy: [facility] #[id number], 1 tabs Oral TID,PRN:as needed for spasm Start Date: 09/24/15 Status: Ordered Cymbalta 30 mg oral delayed release capsule 30 mg 1 caps, Oral, Bedtime (once a day), # 30 caps, 0 Refill(s), Pharmacy: [facility] #[id number], 1 caps Oral Bedtime (once a day) Start Date: 09/24/15 Status: Ordered [place] 5 mg-325 mg oral tablet 1 tabs, Oral, q6hr, as needed for pain, #40 Must last 30 days. MAY FILL ON 08/29., # 40 tabs, 0 Refill(s) Start Date: 09/21/15 Status: Ordered [place] 5 mg-325 mg oral tablet 1 tabs, Oral, BID, as needed for pain, Note number dispensed is increased. May fill today 09/24/15. Maren Must last 30 days., # 60 tabs, 0 Refill(s) Start Date: 09/24/15 Status: Ordered Zithromax Z-[place] 250 mg oral tablet 1 packets, Oral, Daily, as directed on package labeling, X 5 days, # 6 tabs, 0 Refill(s), Pharmacy: [facility] #[id number], 1 packets Oral Daily,x5 days, Instr:as directed on package labeling Start Date: 09/21/15 Stop Date: 09/26/15 Status: Ordered Results No data available for [...] Author: Abimael Ibrahim MD Date: Family Medicine Cervical Sprain A cervical sprain is an injury in the neck in which the strong, fibrous tissues (ligaments) that connect your neck bones stretch or tear. Cervical sprains can range from mild to severe. Severe cervical sprains can cause the neck vertebrae to be unstable. This can lead to damage of the spinal cord and can result in serious nervous system problems. The amount of time it takes for a cervical sprain to get better depends on the cause and extent of the injury. Most cervical sprains heal in 1 to 3 weeks. CAUSES Severe cervical sprains may be caused by: Contact sport injuries (such as from football, rugby, wrestling, hockey, auto racing, gymnastics, diving, martial arts, or boxing). Motor vehicle collisions. Whiplash injuries. This is an injury from a sudden forward and backward whipping movement of the head and neck. Falls. Mild cervical sprains may be caused by: Being in an awkward position, such as while cradling a telephone between your ear and shoulder. Sitting in a chair that does not offer proper support. Working at a poorly designed computer station. Looking up or down for long periods of time. SYMPTOMS Pain, soreness, stiffness, or a burning sensation in the front, back, or sides of the neck. This discomfort may develop immediately after the injury or slowly, 24 hours or more after the injury. Pain or tenderness directly in the middle of the back of the neck. Shoulder or upper back pain. Limited ability to move the neck. Headache. Dizziness. Weakness, numbness, or tingling in the hands or arms. Muscle spasms. Difficulty swallowing or chewing. Tenderness and swelling of the neck. DIAGNOSIS Most of the time your health care provider can diagnose a cervical sprain by taking your history and doing a physical exam. Your health care provider will ask about previous neck injuries and any known neck problems, such as arthritis in the neck. X-rays may be taken to find out if there are any other problems, such as with the bones of the neck. Other tests, such as a CT scan or MRI, may also be needed. TREATMENT Treatment depends on the severity of the cervical sprain. Mild sprains can be treated with rest, keeping the neck in place (immobilization), and pain medicines. Severe cervical sprains are immediately immobilized. Further treatment is done to help with pain, muscle spasms, and other symptoms and may include: Medicines, such as pain relievers, numbing medicines, or muscle relaxants. Physical therapy. This may involve stretching exercises, strengthening exercises, and posture training. Exercises and improved posture can help stabilize the neck, strengthen muscles, and help stop symptoms from returning. HOME CARE INSTRUCTIONS Put ice on the injured area. Put ice in a plastic bag. Place a towel between your skin and the bag. Leave the ice on for 1520 minutes, 34 times a day. If your injury was severe, you may have been given a cervical collar to wear. A cervical collar is a two-piece collar designed to keep your neck from moving while it heals. Do not remove the collar unless instructed by your health care provider. If you have long hair, keep it outside of the collar. Ask your health care provider before making any adjustments to your collar. Minor adjustments may be required over time to improve comfort and reduce pressure on your chin or on the back of your head. Ifyou are allowed to remove the collar for cleaning or bathing, follow your health care provider's instructions on how to do so safely. Keep your collar clean by wiping it with mild soap and water and drying it completely. If the collar you have been given includes removable pads, remove them every 12 days and hand wash them with soap and water. Allow them to air dry. They should be completely dry before you wear them in the collar. If you are allowed to remove the collar for cleaning and bathing, wash and dry the skin of your neck. Check your skin for irritation or sores. If you see any, tell your health care provider. Do not drive while wearing the collar. Only take [id number] or prescription medicines for pain, discomfort, or fever as directed by your health care provider. Keep all follow-up appointments as directed by your health care provider. Keep all physical therapy appointments as directed by your health care provider. Make any needed adjustments to your workstation to promote good posture. Avoid positions and activities that make your symptoms worse. Warm up and stretch before being active to help prevent problems. SEEK MEDICAL CARE IF: Your pain is not controlled with medicine. You are unable to decrease your pain medicine over time as planned. Your activity level is not improving as expected. SEEK IMMEDIATE MEDICAL CARE IF: You develop any bleeding. You develop stomach upset. You have signs of an allergic reaction to your medicine. Your symptoms get worse. You develop new, unexplained symptoms. You have numbness, tingling, weakness, or paralysis in any part of your body. MAKE SURE YOU: Understand these instructions. Will watch your condition. Will get help right away if you are not doing well or get worse. Document Released: 07/28/2008 Document Revised: 10/06/2014 Document Reviewed: ExitCare Patient Information 2015 [employer]. This information is not intended to replace advice given to you by your health care provider. Make sure you discuss any questions you have with your health care provider. No follow up information was provided. Extracted from: Title: Office Visit Note Author: Abimael Ibrahim MD Date: 09/24/15 Assessment/Plan Cervicalgia, Chronic neck pain Please make the medication adjustments we discussed. Please notify the office for any difficulties or concerns. Significant discussion. After much discussion she may have [place] 5 number sixty every 30 days. No early refills. Dismissal if early refills requested. A work/school note was offered and deferred by the patient. Continue with Dr. Roth. Retry cymbalta 30mg po qhs with food. Call report. THORACIC OR LUMBOSACRAL NEURITIS OR RADICULITIS, UNSPECIFIED See above. Trial of flexeril 10mg po tid prn, may cause sedation. Not to be used if working. Orders: cyclobenzaprine, 10 mg 1 tabs, Oral, TID, as needed for spasm, # 60 tabs, 0 Refill(s), Pharmacy: [facility] #[id number], 1 tabs Oral TID,PRN:as needed for spasm DULoxetine, 30 mg 1 caps, Oral, Bedtime (once a day), # 30 caps, 0 Refill(s), Pharmacy: [facility] #[id number], 1 caps Oral Bedtime (once a day) HYDROcodone-acetaminophen, 1 tabs, Oral, BID, as needed for pain, Note number dispensed is increased. May fill today 09/24/15. Maren Must last 30 days., # 60 tabs, 0 Refill(s)
--- OUTSIDE RECORDS SUMMARY | 2017-02-27 12:51 | XMS REPORT | Referral Summary ---
Author Author [facility] Organization [facility] Address Unknown Phone Unavailable Care Team Providers Care Brick Tester Name Role Phone Daniel Ibrahim Primary Care Physician [phone] Encounter [facility] Date(s): 05/01/16 - 05/01/16 [facility] [address] [place], [place] [address] Discharge Disposition: 01-Home or Self Care Attending Physician: Ashli Leija PA-C Admitting Physician: Ashli Leija PA-C Vital Signs Most recent to 1 oldest [Reference Range]: Temperature Tympanic 36.3 degC [36.6-38.1 degC] *LOW* (05/01/16 3:48 PM) Blood Pressure 128/74 mmHg [90-140/60-90 mmHg] (05/01/16 3:48 PM) Problem List Condition Effective Dates Status [...] AND Active OTHER CHEST SYMPTOMS itching Medications [place] 5 mg-325 mg oral tablet 1 tabs, Oral, q6hr, as needed for pain, #60 Must last 30 days., # 60 tabs, 0 Refill(s) Start Date: 05/01/16 Status: Ordered Ocuflox 0.3% ophthalmic solution 2 drops, Eye-Right, TID, # 5 mL, 0 Refill(s), Pharmacy: [facility] #[id number] Start Date: 04/04/16 Stop Date: 04/09/16 Status: Ordered Results No data available for this section Immunizations Vaccine Date Refusal Reason hepatitis B adult vaccine 08/16/00 hepatitis B adult vaccine 05/16/99 hepatitis B adult vaccine 06/07/98 influenza virus vaccine, live 07/18/13 tetanus-diphth toxoids (Td) adult/adol 05/16/99 Procedures Procedure Date Related Diagnosis Body Site T 7-8 Translaminar 03/01/16 Right C5-6 Transforaminal [...]
--- OUTSIDE RECORDS SUMMARY | 2017-02-27 12:51 | XMS REPORT | Continuity of Care Document ---
Author Author Alexandria URIARTE, FAANIDIA, Abimael W Organization [facility] Address [address] [place] [address] [place] [address] Phone Care Team Providers Care Director [facility] Name Role Phone Abimael Ibrahim PP Unavailable Payers Payer name Insurance type Covered constitution party ID Authorization(s) Unknown Problems Condition Effective Dates (start - stop) Clinical Status Upper Respiratory Infection, Acute - *Acute Fever - *Acute Cough - *Acute Pain in limb - *Acute [...] DISORDER NEC - MGRN W AURA WO NTR MGRN - AC SUPP OTITIS MEDIA NOS [...] - *Chronic Unspecified contraceptive management - *Chronic Neck pain - *Symptomatic Family History Family Member Diagnosis Age At Onset Status Father (Unknown) Alive and well (Unknown) Mother (Unknown) Alive and well (Unknown) Social History Social History Element Description Quantity Unknown Allergies, Adverse Reactions, Alerts Substance Reaction Severity Status SUMATRIPTAN Unknown SUMATRIPTAN SUCCINATE Unknown PENICILLINS Unknown Medications Medication Instructions Dosage Effective Dates (start - stop) Status Zithromax 250 mg tablet take 2 tablet (500MG) by oral route every day for 1 day then 1 tablet (250 mg) by oral route once daily for 4 days 500 MG 2013 - No Longer Active prednisone 20 mg tablet take 1 tablet (20MG) by oral route every day 20 MG - No Longer Active promethazine-codeine 6.25 mg-10 mg/5 mL syrup take 5 milliliter by oral route every 6 hours as needed, not to exceed 30 mL in 24 hours 0 - Oct No Longer Active TAKE 1 TAB DAILY [...] Measure Units Reference Range Abnormal Flag Comments Panel Description: Influenzae A/B Influenzae A 13:24:00 Negative for Influenzae A Negative for Influen Influenzae B 13:24:00 Negative for Influenzae B Negative for Influen Vital Signs Date / Time: Height Weight Pulse Rate Blood Pressure Temperature /13:17:00 64.00 in 158.00 lbs 110/80 mm[Hg] 98.9 F Procedures Procedure Date Unknown Encounters Encounter Location Date Patient Visit [facility] Patient Visit [facility] Patient Visit [facility] E21 Derm Patient Visit [facility] Patient [facility] Patient Visit Conversion Patient Visit [facility] Patient [facility] Patient [facility] Patient [facility] Patient Visit [facility] Patient Visit [facility] Patient [facility] Patient Visit [facility] Patient Visit [facility] Patient Visit [facility] Ortho Advance Directives Directive Effective Date Unknown
--- OUTSIDE RECORDS SUMMARY | 2017-02-27 12:51 | XMS REPORT | Referral Summary ---
Author Author [facility] Organization [facility] Address Unknown Phone Unavailable Care Team Providers Care Geriatric Physical Therapist Name Role Phone Daniel Ibrahim Primary Care Physician [phone] Encounter [facility] Date(s): 02/16/16 - 02/16/16 [facility] [address] [place], [place] [address] Discharge Disposition: 01-Home or Self Care Attending Physician: Ashli Leija PA-C Admitting Physician: Ashli Leija PA-C Referring Physician: Abimael Ibrahim MD Vital Signs Most recent to 1 oldest [Reference Range]: Temperature Oral 36.7 degC [35.8-37.3 degC] (02/16/16 3:17 PM) Blood Pressure 126/80 mmHg [90-140/60-90 mmHg] (02/16/16 3:17 PM) Problem List Condition Effective Dates Status [...] AND Active OTHER CHEST SYMPTOMS itching Medications [place] 5 mg-325 mg oral tablet 1 [...]
--- OUTSIDE RECORDS SUMMARY | 2017-02-27 12:51 | XMS REPORT | Referral Summary ---
Author Author [facility] Organization [facility] Address Unknown Phone Unavailable Care Team Providers Care Preschool Education Director Name Role Phone Daniel Ibrahim Primary Care Physician [phone] Encounter VC Date(s): 10/27/15 - 10/27/15 [facility], [address] [place] [id number]- Discharge Diagnosis: Surveillance of implantable subdermal contraceptive Discharge Diagnosis: Well woman exam with routine gynecological exam Discharge Disposition: 01-Home or Self Care Attending Physician: Azra Andres APRN Admitting Physician: Azra Andres APRN Vital Signs Most recent to 1 oldest [Reference Range]: Temperature Tympanic 36.6 degC [36.6-38.1 degC] (10/27/15 2:50 PM) Peripheral Pulse 80 bpm Rate [60-100 bpm] (10/27/15 2:50 PM) Blood Pressure 113/88 mmHg [90-140/60-90 mmHg] (10/27/15 2:50 PM) SpO2 99 % (10/27/15 2:50 PM) Problem List Condition Effective Dates Status [...] AND Active OTHER CHEST SYMPTOMS itching Medications [place] 5 mg-325 mg oral tablet 1 [...]
--- OUTSIDE RECORDS SUMMARY | 2017-02-27 12:51 | XMS REPORT | Referral Summary ---
Author Author [facility] Organization [facility] Address Unknown Phone Unavailable Care Team Providers Care Geographic Information Systems Director Name Role Phone Daniel Ibrahim Primary Care Physician [phone] Encounter VC Date(s): 06/30/15 - 06/30/15 [facility] [address] [place], [place] [address] Discharge Diagnosis: Acute cervical radiculopathy Discharge Diagnosis: Neck pain Discharge Diagnosis: Cervical herniation Discharge Disposition: 01-Home or Self Care Attending Physician: Sam Roth MD Admitting Physician: Sam Roth MD Vital Signs Most recent to 1 oldest [Reference Range]: Peripheral Pulse 82 bpm Rate [60-100 bpm] (06/30/15 1:25 PM) Respiratory Rate 10 br/min [14-20 br/min] *LOW* (06/30/15 1:25 PM) Blood Pressure 110/72 mmHg [90-140/60-90 mmHg] (06/30/15 1:25 PM) SpO2 98 % (06/30/15 1:25 PM) Problem List Condition Effective Dates Status [...] AND Active OTHER CHEST SYMPTOMS itching Medications [place] 5 mg-325 mg oral tablet 1 tabs, [...] Medial Branch Block with 07/26/15 Differential Injection(s), anesthetic agent and/or 06/30/15 steroid, transforaminal epidural, with imaging guidance (fluoroscopy or CT); cervical or thoracic, single level Right C5-6 Transforaminal 06/30/15 RIGHT C4-6 RADIO 04/28/15 Right C4-6 Medial Branch Block with 04/08/15 Differential Right C4-6 Medial Branch Block 04/01/15 Right C5-6 Transforaminal 01/19/15 Cervical Translaminar 12/07/14 Sinus Social History Social History Type Response Smoking Status Former smoker; Type: Cigarettes Assessment and Plan No data available for this section
--- OUTSIDE RECORDS SUMMARY | 2017-02-27 12:51 | XMS REPORT | Referral Summary ---
Author Organization Unknown Address Unknown Phone Unavailable Care Team Providers Care Longwall Shearer Operator Name Role Phone Susulouis Daniel Primary Care Physician [phone] Encounter MARIE [id number] Date(s): 11/09/14 - 11/09/14 [facility], Jacqueline Nieves, Otolaryngology [address] [place], [place] [address] Discharge Diagnosis: PND (post-nasal drip) Discharge Diagnosis: Other chronic sinusitis Discharge Disposition: Home or Self Care Attending Physician: Rufus Angela MD Admitting Physician: Rufus Angela MD Vital Signs No data available for this section Problem List Condition Effective Dates Status Health Status Informant Other Active acne(Confirmed) Acute suppurative Active otitis media without spontaneous rupture of ear drum(Confirmed) Unspecified asthma, Active with status asthmaticus(Confirme d) Hematuria, Active unspecified(Confirme d) Bronchitis, not Active specified as acute or chronic(Confirmed) 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) [...] 2012 Active 1 (Confirmed) 2009 Active 2 Sinus Resolved infection(Confirmed) Tension Active headache(Confirmed) Tourette's Resolved syndrome(Confirmed)3 1NSVD 2NSVD 3Pre School Age Allergies, Adverse Reactions, Alerts Substance Reaction Severity Status Amitex [place] Active penicillin Rash Active SUMAtriptan HEADACHE Active traMADol SYMPTOMS INVOLVING RESPIRATORY SYSTEM AND Active OTHER CHEST SYMPTOMS itching Medications Atrovent 21 mcg/inh nasal spray 2 sprays, Nasal, TID, # 30 mL, 3 Refill(s), Pharmacy: [facility] #[id number] Start Date: 11/09/14 Status: Ordered ISOtretinoin 40 mg oral capsule 1 caps, Oral, BID, # 60 caps, 0 Refill(s), Pharmacy: [facility] #[id number], 1 caps Oral BID Start Date: 07/01/14 Status: Ordered ISOtretinoin 40 mg oral capsule 1 caps, Oral, BID, MO#6, # 60 caps, 0 Refill(s), Pharmacy: [facility] # [id number], 1 caps Oral BID,Instr:MO#6 Special Instructions: MO#6 Start Date: 10/05/14 Status: Ordered ISOtretinoin 40 mg oral capsule 1 caps, Oral, BID, IP#[id number] MO#4, # 60 caps, 0 Refill(s), Pharmacy: [facility] #[id number], 1 caps Oral BID,Instr:IP#[id number] MO#4 Special Instructions: IP#[id number] MO#4 Start Date: 07/30/14 Status: Ordered Results No data available for this section Immunizations Vaccine Date Refusal Reason hepatitis B adult vaccine 08/16/00 hepatitis B adult vaccine 05/16/99 hepatitis B adult vaccine 06/07/98 influenza virus vaccine, live 07/18/13 tetanus-diphth toxoids (Td) adult/adol 05/16/99 Procedures Procedure Date Related Diagnosis Body Site Nasal endoscopy, diagnostic, unilateral or 11/09/14 bilateral (separate procedure) Sinus Social History Social History Type Response Smoking Status Former smoker; Type: Cigarettes Assessment and Plan Extracted from: Title: Office Visit Note Author: Rufus Angela MD Date: 11/09/14 Assessment/Plan Other chronic sinusitis I reassured the patient that her sinuses themselves appear quite healthy. I placed her on Atrovent nasal spray to manage her rhinitis and postnasal drip. She is to continue with her sinus irrigation as well. Follow-up on an as-needed basis. PND (post-nasal drip) Orders: ipratropium nasal, 2 sprays, Nasal, TID, # 30 mL, 3 Refill(s), Pharmacy: [facility] #[id number]
--- OUTSIDE RECORDS SUMMARY | 2017-02-27 12:52 | XMS REPORT | Referral Summary ---
Author Author [facility] Organization [facility] Address Unknown Phone Unavailable Care Team Providers Care Designated Broker Name Role Phone Daniel Ibrahim Primary Care Physician [phone] Encounter Date(s): 07/05/16 - 07/05/16 [facility], [address] [place] [id number] Discharge Diagnosis: Generalized anxiety disorder Discharge Diagnosis: Cervicalgia Discharge Disposition: 01-Home or Self Care Attending Physician: Chery Lloyd PA-C Admitting Physician: Chery Lloyd PA-C Vital Signs Most recent to 1 oldest [Reference Range]: Peripheral Pulse 68 bpm Rate [60-100 bpm] (07/05/16 2:24 PM) Respiratory Rate 18 br/min [14-20 br/min] (07/05/16 2:24 PM) Blood Pressure 112/78 mmHg [90-140/60-90 mmHg] (07/05/16 2:24 PM) Problem List Condition Effective Dates Status [...] Refill (s) Start Date: 06/21/16 Status: Ordered [place] 5 mg-325 mg oral tablet 1 tabs, Oral, q6hr, as needed for pain, #60 Must last 30 days., # 60 tabs, 0 Refill(s) Start Date: 06/30/16 Status: Ordered Ocuflox 0.3% ophthalmic solution 2 drops, Eye-Right, TID, # 5 mL, 0 Refill(s), Pharmacy: [facility] #[id number] Start Date: 04/04/16 Stop Date: 04/09/16 Status: Ordered Wellbutrin XL 150 mg/24 hours oral tablet, extended release 150 mg 1 tabs, Oral, q24hr, # 14 Each, 0 Refill(s), Pharmacy: [facility] # [id number], 1 tabs Oral q24hr Start Date: 07/05/16 [...] Plan Extracted from: Title: Office Visit Note- Recheck Author: Chery Lloyd PA-C Date: 07/05/16 Assessment/Plan Cervicalgia D/w pt to first see seewhat his recommendations are. She is to let us know ifjackelyn has concerns, and we can try to find another pain medicine provider for her. Ordered: Office Visit Level 4 Est 82803 Generalized anxiety disorder Will have pt DC Buspar and switch to Wellbutrin XL at this time. Start with 150mg dose. She is to RTC in 2 weeks to see how she is doing. Ordered: Office Visit Level 4 Est 02500 Tuberculosis screening PPD done today.She is to come back to clinic in 48- 72 H to read. Ordered: Office Visit Level 4 Est 33523
--- OUTSIDE RECORDS SUMMARY | 2017-02-27 12:52 | XMS REPORT | Referral Summary ---
Author Author [facility] Organization [facility] Address Unknown Phone Unavailable Care Team Providers Care Grip Boss Name Role Phone Daniel Ibrahim Primary Care Physician [phone] Encounter Date(s): 02/09/16 - 02/09/16 [facility] [address] [place], [place] [address] Discharge Diagnosis: Lumbar disc herniation Discharge Diagnosis: Lumbar radiculopathy Discharge Diagnosis: Lumbar spinal stenosis Discharge Disposition: 01-Home or Self Care Attending Physician: Sam Roth MD Admitting Physician: Sam Roth MD Vital Signs Most recent to 1 oldest [Reference Range]: Peripheral Pulse 68 bpm Rate [60-100 bpm] (02/09/16 2:28 PM) Respiratory Rate 20 br/min [14-20 br/min] (02/09/16 2:28 PM) Blood Pressure 127/80 mmHg [90-140/60-90 mmHg] (02/09/16 2:28 PM) SpO2 99 % (02/09/16 2:28 PM) Problem List Condition Effective Dates Status [...] AND Active OTHER CHEST SYMPTOMS itching Medications [place] 5 mg-325 mg oral tablet 1 tabs, [...] Body Site Injection(s), of diagnostic or therapeutic 02/09/16 substance(s) (including anesthetic, antispasmodic, opioid, steroid, other solution), not including neurolytic substances, including needle or catheter placement, includes contrast for localization when performed, Right C5-6 Transforaminal 12/22/15 Right C5-6 Transforaminal [...]
--- OUTSIDE RECORDS SUMMARY | 2017-02-27 12:52 | XMS REPORT | Referral Summary ---
Author Organization Unknown Address Unknown Phone Unavailable Care Team Providers Care Fancy Needleworker Name Role Phone Daniel Ibrahim Primary Care Physician [phone] Encounter VC Date(s): 11/12/14 - 11/12/14 [facility] [address] [place] [id number]- [place] Discharge Diagnosis: Neck pain Discharge Diagnosis: Tension headache Discharge Disposition: Home or Self Care Attending Physician: Abimael Ibrahim MD Admitting Physician: Abimael Ibrahim MD Vital Signs Most recent to 1 oldest [Reference Range]: Blood Pressure 110/60 mmHg [90-140/60-90 mmHg] (11/12/14 2:05 PM) Problem List Condition Effective Dates Status [...] AND Active OTHER CHEST SYMPTOMS itching Medications Lyrica 75 mg oral capsule 1 caps, Oral, Daily, # 30 caps, 0 Refill(s), samples given to patient (Rx) Start Date: 11/12/14 Status: Ordered Results No data available for [...] injury in the neck in which the ligaments are stretched or torn. The ligaments are the tissues that hold the bones of the neck ( vertebrae ) in place.Cervical sprains can range from very mild to very severe. Most cervical sprains get better in 1 to 3 weeks, but it depends on the cause and extent of the injury. Severe cervical sprains can cause the neck vertebrae to be unstable. This can lead to damage of the spinal cord and can result in serious nervous system problems. Your caregiver will determine whether your cervical sprain is mild or severe. CAUSES Severe cervical sprains may be caused by: Contact sport injuries (football, rugby, wrestling, hockey, auto racing, gymnastics, diving, martial arts, boxing). Motor vehicle collisions. Whiplash injuries. This means the neck is forcefully whipped backward and forward. Falls. Mild cervical sprains may be caused by: Awkward positions, such as cradling a telephone between your ear and shoulder. Sitting in a chair that does not offer proper support. Working at a poorly designed computer station. Activities that require looking up or down for long periods of time. SYMPTOMS Pain, soreness, stiffness, or a burning sensation in the front, back, or sides of the neck. This discomfort may develop immediately after injury or it may develop slowly and not begin for 24 hours or more after an injury. Pain or tenderness directly in the middle of the back of the neck. Shoulder or upper back pain. Limited ability to move the neck. Headache. Dizziness. Weakness, numbness, or tingling in the hands or arms. Muscle spasms. Difficulty swallowing or chewing. Tenderness and swelling of the neck. DIAGNOSIS Most of the time, your caregiver can diagnose this problem by taking your history and doing a physical exam. Your caregiver will ask about any known problems, such as arthritis in the neck or a previous neck injury. X-rays may be taken to find out if there are any other problems, such as problems with the bones of the neck. However, an X-ray often does not reveal the full extent of a cervical sprain. Other tests such as a computed tomography (CT) scan or magnetic resonance imaging (MRI) may be needed. TREATMENT Treatment depends on the severity of the cervical sprain. Mild sprains can be treated with rest, keeping the neck in place (immobilization ), and pain medicines. Severe cervical sprains need immediate immobilization and an appointment with an orthopedist or neurosurgeon. Several treatment options are available to help with pain, muscle spasms, and other symptoms. Your caregiver may prescribe: Medicines, such as pain relievers, numbing medicines, or muscle relaxants. Physical therapy. This can include stretching exercises, strengthening exercises, and posture training. Exercises and improved posture can help stabilize the neck, strengthen muscles, and help stop symptoms from returning. A neck collar to be worn for short periods of time. Often, these collars are worn for comfort. However, certain collars may be worn to protect the neck and prevent further worsening of a serious cervical sprain. HOME CARE INSTRUCTIONS Put ice on the injured area. Put ice in a plastic bag. Place a towel between your skin and the bag. Leave the ice on for 15-20 minutes, 3-4 times a day. Only take [id number] or prescription medicines for pain, discomfort, or fever as directed by your caregiver. Keep all follow-up appointments as directed by your caregiver. Keep all physical therapy appointments as directed by your caregiver. If a neck collar is prescribed, wear it as directed by your caregiver. Do not drive while wearing a neck collar. Make any needed adjustments to your work station to promote good posture. Avoid positions and activities that make your symptoms worse. Warm up and stretch before being active to help prevent problems. SEEK MEDICAL CARE IF: Your pain is not controlled with medicine. You are unable to decrease your pain medicine over time as planned. Your activity level is not improving as expected. SEEK IMMEDIATE MEDICAL CARE IF: You develop any bleeding, stomach upset, or signs of an allergic reaction to your medicine. Your symptoms get worse. You develop new, unexplained symptoms. You have numbness, tingling, weakness, or paralysis in any part of your body. MAKE SURE YOU: Understand these instructions. Will watch your condition. Will get help right away if you are not doing well or get worse. Document Released: 07/28/2008 Document Revised: 12/23/2012 Document Reviewed: [facility] Patient Information 2014 [employer]. No follow up information was provided. Extracted from: Title: Office Visit Note Author: Abimael Ibrahim MD Date: 11/12/14 Assessment/Plan Neck pain Many options were discussed. MRI was reviewed. Plan to try lyrica 75mg po qhs. Call report in 2 weeks. Samples given. Consider cymbalta if not improving and/or to Dr. Roth. Tension headache This issue is stable and appropriate refills, lab, and f/ u have been discussed. Work note offered and deferred. Orders: pregabalin, 1 caps, Oral, Daily, # 30 caps, 0 Refill(s), samples given to patient (Rx)
--- NOTE | 2017-02-27 12:53 | ERPDOC ---
Departure Disposition Decision Date: February 27, 2017 Disposition Decision Time: 14:51 (ANN-MARIE HARDIN APRN) Disposition: 01 DISCHARGED HOME, SELF-CARE Impression Impression (ANN-MARIE HARDIN APRN) Impression: Primary Impression: Costochondritis Condition: Stable Seen By: Mid-level only (ANN-MARIE HARDIN APRN) Referrals: KALPANA CONDE MD (PCP) Patient Instructions: Costochondritis (ED) Problems/Meds/Labs Reviewed?: Yes Medications reviewed and manag: Yes (ANN-MARIE HARDIN APRN) Additional Instructions: 1. Take ibuprofen or Aleve for inflammation and discomfort. 2. Apply warm packs or ice packs to chest as needed 3. Follow up with Dr. Conde Follow up care ordered?: Yes Mental Status: Alert, Oriented (ANN-MARIE HARDIN APRN) HPI - Chest Pain General Stated Complaint: CHEST PAIN Time Seen by Provider: 12:58 Source: patient Exam Limitations: no limitations (ANN-MARIE HARDIN APRN) Time Seen by Provider: 12:58 (PILI PRINCE DO) HPI - Chest Pain Initial Comments Rebecca is a 31 year old female who has been experiencing mid to right sided chest discomfort for the last 1 1/2 weeks fairly consistently. Pain is described as a pressure although there is some tenderness with palpation she relays. Does not notice any increase in discomfort with deep breathing. Denies cough. Denies fevers. Called her PCP Dr. Haroon Conde today for an appointment to be seen and was advised to go to the emergency department. Patient verbalizes her biggest fear is having cancer that is causing the pain. Patient does have Implanon. Denies any recent weight lifting or trauma to the chest. Denies any recent respiratory illnesses. Occurred At: home Onset/Timing: Constant Duration: 1 week Activities at Onset/Context: none Quality: pressure Associated Symptoms: denies symptoms, DENIES: dizziness, fever/chills, nausea/ vomiting, shortness of breath Chest Pain Radiation: no radiation Nitro Today/Relief: no nitro taken today Aspirin Treatment Today: provided by ED Prior Chest Pain/Cardiac Kimberlee: no prior chest pain Hx of Similar Symptoms: No (ANN-MARIE HARDIN APRN) Allergies: Coded Allergies: sumatriptan (Verified Allergy, Severe, NEEDLE PRICKS IN HEAD, PUPIL DILATION, 02/27/17) Penicillins (Verified Allergy, Intermediate, RASH, 02/27/17) lubiprostone (Verified Allergy, Mild, 02/27/17) tramadol (Verified Allergy, Mild, RASH, 02/27/17) Past History Past Medical History Neurological: migraines Psychological: depression (ANN-MARIE HARDIN APRN) Surgical History Denies Surgeries (ANN-MARIE HARDIN APRN) Family History Family History: Negative (ANN-MARIE HARDIN APRN) Vaccines Hx Influenza Vaccination: No Hx Pneumococcal Vaccination: No (ANN-MARIE HARDIN APRN) Social History Smoking Status: Former smoker # of Packs/Tins per Day: .5 # of Years: 10 Substance Use Type: does not use Alcohol Intake: none Marital Status: Household Members: family Current Occupational Status: employed 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 (ANN-MARIE HARDIN APRN) Review of Systems Constitutional Constitutional: DENIES: fever (ANN-MARIE HARDIN APRN) Cardiovascular Cardiac: chest pain, DENIES: dyspnea on exertion Rhythm/Rate: DENIES: irregular beat, palpitations (ANN-MARIE HARDIN APRN) Pulmonary Respiratory: DENIES: cough (ANN-MARIE HARDIN APRN) GI Upper Abdomen: DENIES: nausea, vomiting (ANN-MARIE HARDIN APRN) : (2), para (1) (ANN-MARIE HARDIN APRN) Neurological General: DENIES: numbness (ANN-MARIE HARDIN APRN) Psychiatric Psychiatric: anxiety (ANN-MARIE HARDIN APRN) All other Systems All Other Systems: Reviewed and Negative (ANN-MARIE HARDIN APRN) Physical Exam General General Nourishment: well nourished, well developed, appears stated age, no acute distress (ANN-MARIE HARDIN APRN) Vitals and Pain First Documented Vital Signs Date Time Temp Pulse Resp B/P Pulse Ox O2 Delivery O2 Flow Rate FiO2 02/27/17 12:47 98.3 76 16 136/79 99 Room Air (PILI PRINCE DO) Vitals and Pain Weight: Kilograms: Height (feet): Height (inches): Triage Pain Scale: (ANN-MARIE HARDIN APRN) Eyes (brief) Eyes Brief: found: PERRL, not found: scleral icterus (ANN-MARIE HARDIN APRN) ENMT (brief) ENMT Brief: FOUND: mucosa moist, NOT FOUND: pharnyx erythema (HARDIN,ANN-MARIE PATHOLOGY COLLECTOR) Neck (brief) Neck: NOT FOUND: adenopathy, thyromegaly (HARDIN,ANN-MARIE PATHOLOGY COLLECTOR) Respiratory (brief) Respiratory: FOUND: clear all luna, equal bilaterally (HARDIN,ANN-MARIE PATHOLOGY COLLECTOR) Cardiovascular (brief) Cardiac: FOUND: regular rate, regular rhythm, NOT FOUND: murmur (HARDIN,ANN-MARIE PATHOLOGY COLLECTOR) Abdomen (brief) Abdominal Brief: FOUND: bowel normo active x4, soft, NOT FOUND: tender (HARDIN, ANN-MARIE PATHOLOGY COLLECTOR) Musculoskeletal (brief) Musculoskeletal Brief: FOUND: tenderness (mild anterior chest) (HARDIN,ANN-MARIE PATHOLOGY COLLECTOR) Integumentary (brief) Integumentary Brief: FOUND: dry, pink, warm (HARDIN,ANN-MARIE PATHOLOGY COLLECTOR) Psychiatric (brief) Psychiatric Brief: FOUND: alert, attentive, normal affect, oriented (HARDIN, ANN-MARIE PATHOLOGY COLLECTOR) Differential Diagnoses Considering: Acute NV, Anxiety/Panic, Costochondritis, GERD, Pleurisy (HARDIN,ANN-MARIE PATHOLOGY COLLECTOR) Progress Results/Orders Orders Procedure Category Date Status Time Cbc W/Auto LAB 02/27/17 Complete Diff-Reflex Manual 12:56 Bmp - Basic Metabolic LAB 02/27/17 Complete Panel 12:56 Troponin I W LAB 02/27/17 Complete Hemolysis Index 12:56 LAB 02/27/17 Complete Qualitative, Serum 12:56 D-Dimer LAB 02/27/17 Complete 12:56 EKG EKG 02/27/17 Logged 12:56 Chest, Pa & Lateral RAD 02/27/17 Resulted 12:56 Iv Lock (Ed Only) EDM 02/27/17 Transmitted 12:56 Aspirin (Asa) PHA 02/27/17 Complete 13:00 (PILI PRINCE DO) Orders Procedure Category Date Status Time Cbc W/Auto LAB 02/27/17 Complete Diff-Reflex Manual 12:56 Bmp - Basic Metabolic LAB 02/27/17 Complete Panel 12:56 Troponin I W LAB 02/27/17 Complete Hemolysis Index 12:56 LAB 02/27/17 Complete Qualitative, Serum 12:56 D-Dimer LAB 02/27/17 Complete 12:56 EKG EKG 02/27/17 Logged 12:56 Chest, Pa & Lateral RAD 02/27/17 Taken 12:56 Iv Lock (Ed Only) EDM 02/27/17 Transmitted 12:56 Aspirin (Asa) PHA 02/27/17 Complete 13:00 (ANN-MARIE HARDIN APRN) Lab Results Laboratory Tests Test 02/27/17 13:38 White Blood Count 8.9T/MM3 Red Blood Count 4.61M/MM3 Hemoglobin 13.6GM/DL Hematocrit 39.6% Mean Corpuscular Volume 85.9UM3 Mean Corpuscular Hemoglobin 29.5UUG Mean Corpuscular Hemoglobin Concent 34.3GM/DL RDW Standard Deviation 39.6FL Platelet Count 205T/MM3 Mean Platelet Volume 11.7UM3 Immature Granulocyte % (Auto) 0.3% Neutrophils (%) (Auto) 69.5% Lymphocytes (%) (Auto) 21.8% Monocytes (%) (Auto) 5.5% Eosinophils (%) (Auto) 2.6% Basophils (%) (Auto) 0.3% Absolute Immature Granulocyte (auto 0.03T/MM3 Absolute Neutrophils (auto) 6.2T/MM3 Absolute Lymphocytes (auto) 1.9T/MM3 Absolute Monocytes (auto) 0.5T/MM3 Absolute Eosinophils (auto) 0.2T/MM3 Absolute Basophils (auto) 0.0T/MM3 D-Dimer < 150NG/ML Turbidity < 20 Sodium Level 145MEQ/L Potassium Level 3.8MEQ/L Chloride Level 105MEQ/L Carbon Dioxide Level 25MEQ/L Anion Gap 15MEQ/L Blood Urea Nitrogen 6.0MG/DL Creatinine 0.6MG/DL Glomerular Filtration Rate Calc 116 BUN/Creatinine Ratio 10RATIO Glucose Level 121MG/DL Calculated Osmolality 278MOSM/KG Calcium Level 9.7MG/DL Icterus Index < 2 Troponin I < 0.012ng/ml Human Chorionic Gonadotropin, Qual Negative Chemistry Specimen Hemolysis < 15 (PILI PRINCE DO) Lab Results Laboratory Tests Test 02/27/17 13:38 White Blood Count 8.9T/MM3 Red Blood Count 4.61M/MM3 Hemoglobin 13.6GM/DL Hematocrit 39.6% Mean Corpuscular Volume 85.9UM3 Mean Corpuscular Hemoglobin 29.5UUG Mean Corpuscular Hemoglobin Concent 34.3GM/DL RDW Standard Deviation 39.6FL Platelet Count 205T/MM3 Mean Platelet Volume 11.7UM3 Immature Granulocyte % (Auto) 0.3% Neutrophils (%) (Auto) 69.5% Lymphocytes (%) (Auto) 21.8% Monocytes (%) (Auto) 5.5% Eosinophils (%) (Auto) 2.6% Basophils (%) (Auto) 0.3% Absolute Immature Granulocyte (auto 0.03T/MM3 Absolute Neutrophils (auto) 6.2T/MM3 Absolute Lymphocytes (auto) 1.9T/MM3 Absolute Monocytes (auto) 0.5T/MM3 Absolute Eosinophils (auto) 0.2T/MM3 Absolute Basophils (auto) 0.0T/MM3 D-Dimer < 150NG/ML Turbidity < 20 Sodium Level 145MEQ/L Potassium Level 3.8MEQ/L Chloride Level 105MEQ/L Carbon Dioxide Level 25MEQ/L Anion Gap 15MEQ/L Blood Urea Nitrogen 6.0MG/DL Creatinine 0.6MG/DL Glomerular Filtration Rate Calc 116 BUN/Creatinine Ratio 10RATIO Glucose Level 121MG/DL Calculated Osmolality 278MOSM/KG Calcium Level 9.7MG/DL Icterus Index < 2 Troponin I < 0.012ng/ml Human Chorionic Gonadotropin, Qual Negative Chemistry Specimen Hemolysis < 15 (ANN-MARIE HARDIN APRN) Medications Current ED Medications Aspirin (ASA) 324 mg O ONCE PO Last administered on 02/27/17 13:02; Start at 13:00; Stop 02/27/17 at 13:01; Status DC (PILI PRINCE DO) Medications Current ED Medications Aspirin (ASA) 324 mg O ONCE PO Last administered on 02/27/17 13:02; Start at 13:00; Stop 02/27/17 at 13:01; Status DC (ANN-MARIE HARDIN APRN) EKG EKG : Rate: 60-100 Rhythm: sinus Pala: normal QRS: normal Intervals: normal ST/T: normal Interpreted by: signing physician (ANN-MARIE HARDIN APRN) Xray Xray : Xray: CXR PA/Lat Interpretation: Normal, Reviewed Written Report (ANN-MARIE HARDIN APRN) ANN-MARIE HARDIN APRN February 27, 2017 12:53 PILI PRINCE DO February 27, 2017 15:38
--- NOTE | 2017-02-27 12:53 | NUR ---
PROVIDER Shima HARDIN APRN AT BEDSIDE FOR EXAM.
[2017-02-27] MEDS ORDERED: ASPIRIN 81 MG CHEWABLE TABLET PO ONE (13:00)
[2017-02-27] MEDS ORDERED: HYDR-4246 PO (13:09)
[2017-02-27] MEDS ORDERED: PREG75CA PO (13:09)
[2017-02-27] MEDS ORDERED: IBUP200C62 PO (13:09)
[2017-02-27] MEDS ORDERED: LORA0.5T2 PO (13:09)
--- NOTE | 2017-02-27 13:12 | NUR ---
IV ACCESS ORDERS REC'D FROM PROVIDER TO HOLD ON IVL AFTER TWO UNSUCCESSFUL IV ATTEMPTS BY THIS RN AND PT'S REQUEST.
--- NOTE | 2017-02-27 13:14 | NUR ---
LAB AT BEDSIDE FOR BLOOD DRAW.
--- OUTSIDE RECORDS SUMMARY | 2017-02-27 13:21 | XMS REPORT | Continuity of Care Document ---
Author Author [facility] Organization [facility] Address Unknown Phone Unavailable Allergies Active Description Code Type Severity Reaction Onset Reported/Identified Relationship to Patient Clinical Status Yes IMITREX 75776 3 Unknown 11/30/2016 Yes PENICILLIN 54250 2 Skin Rashes/Hives 11/30/2016 Medications Medication Packaging [...] Procedures Code Description Performed By Performed On [id number] Fluoroscopy of Spinal Cord using Low Osm DAISY CURRIE 01/30/2017 Results Encounters ACCT No. Visit Date/Time Discharge Status Pt. Type Provider Facility Loc./Unit Complaint [id number] 11/26/2013 13:43:00 11/26/2013 23 :59:59 [facility] Outpatient [id number] 11/04/2013 15:40:00 11/04/2013 23 :59:59 [facility] [id number] 10/22/2013 13:17:00 10/22/2013 23 :59:59 [facility] Outpatient
[2017-02-27 13:43] LABS: BASOPHILS % (AUTO) 0.3 % (0-2); EOSINOPHILS # (AUTO) 0.2 T/MM3 (0-0.5); EOSINOPHILS % (AUTO) 2.6 % (0-4); HCT - HEMATOCRIT 39.6 % (36-46); HGB - HEMOGLOBIN 13.6 GM/DL (12-16); IMMATURE GRANULOCYTE # (AUTO) 0.03 T/MM3 (0.00-0.03); IMMATURE GRANULOCYTE % (AUTO) 0.3 % (0.0-0.5); LYMPHOCYTES # (AUTO) 1.9 T/MM3 (1-4.8); LYMPHOCYTES % (AUTO) 21.8 % (23-45); MEAN CORPUSCULAR HGB 29.5 UUG (26-34); MEAN CORPUSCULAR HGB CONC(MCHC 34.3 GM/DL (31-37); MEAN CORPUSCULAR VOLUME 85.9 UM3 (80-100); MEAN PLATELET VOLUME 11.7 UM3 (9.4-12.4); MONOCYTES # (AUTO) 0.5 T/MM3 (0-0.8); MONOCYTES % (AUTO) 5.5 % (0-9.0); NEUTROPHILS #(AUTO)-ABSOLUTE 6.2 T/MM3 (1.8-7.7); NEUTROPHILS % (AUTO) 69.5 % (33-66); RED BLOOD COUNT 4.61 M/MM3 (4.00-5.20); WBC - WHITE BLOOD COUNT 8.9 T/MM3 (4.5-11.0)
[2017-02-27 13:54] LABS: ANION GAP 15 MEQ/L (5-15); BUN/CREATININE RATIO 10 RATIO (6-26); CALCIUM 9.7 MG/DL (8.4-10.2); CHLORIDE 105 MEQ/L (98-107); CO2 - CARBON DIOXIDE 25 MEQ/L (22-30); CREATININE 0.6 MG/DL (0.7-1.2); GLOMERULAR FILTRATION RATE 116; GLUCOSE 121 MG/DL (65-110); POTASSIUM 3.8 MEQ/L (3.6-5); SODIUM 145 MEQ/L (134-144)
--- NOTE | 2017-02-27 14:32 | NUR ---
XRAY PT TO XRAY AT THIS TIME.
--- NOTE | 2017-02-27 14:40 | NUR ---
RETURN PT RETURNED FROM XRAY AT THIS TIME.
--- NOTE | 2017-02-27 14:52 | DI ---
INDICATION: ITS.REASON: Dull chest pain for two weeks PROCEDURE: CHEST 2-VIEWS UPRIGHT (PA \T\ LAT) Encounter: Initial COMPARISON: None FINDINGS: The lungs are clear without evidence of focal abnormal airspace opacity. There is no pleural effusion or pneumothorax. The heart size, mediastinal contours and pulmonary vascularity are within normal limits. There is no significant skeletal abnormality. IMPRESSION: No acute cardiopulmonary disease. .
[2017-02-27 15:06] VITALS: BP 119/72; PULSE 78; RESP 18; TEMP 98.3; O2SAT 97
--- NOTE | 2017-02-27 15:06 | NUR ---
DISCHARGE WRITTEN INSTRUCTIONS REVIEWED AND SENT WITH PT. PT VERBALIZES UNDERSTANDING OF DI, DENIES QUESTIONS. REPORTS NO CHANGE IN CHEST PRESSURE. PT AMBULATES OUT OF ER WITH STEADY GAIT AT THIS TIME.
== END 2017-02-27 15:06 | disposition home or self-care (01) ==
LOC: ED 12:42
DX: M94.0 Chondrocostal junction syndrome [Tietze] (principal)
CPT/HCPCS: 36415; 80048; 84484; 84703; 85025; 85379; 93005